=== PATIENT | female | born 1945 | race Asian ===

== ENCOUNTER 2023-07-12 11:57 | Outpatient (CLI) | payer MEDICARE, OTHER | END 2023-07-12 23:59 | disposition critical access hospital (66) | LOC: EMS 11:57 | DX: R53.1 Weakness (principal); R26.2 Difficulty in walking, not elsewhere classified; R39.89 Other symptoms and signs involving the genitourinary system; R23.8 Other skin changes | CPT/HCPCS: A0425; A0429 ==

== ENCOUNTER 2023-07-12 12:36 | Inpatient (IN) | payer MEDICARE, OTHER ==
--- NOTE | 2023-07-12 12:43 | ED Physician Documentation ---
History of Present Illness - Stated complaint Stated Complaint: FTT - History obtained from History obtained from: Patient, EMS - Additonal information Additional information: This is a 77-year-old woman with no known medical history albeit has not seen a doctor in this [place] who lives at home with her . She is brought in by ambulance because of multiple issues. Her main concern is neck pain. She states that 7 years ago she fell and injured her neck. She had no imaging done at the time nor since. Now her neck hurts a lot and it is quite deformed and she cannot lift her head at all. She also complains of bilateral leg pain weakness. She has noted to have A-fib on exam and has no history of this. PD PAST MEDICAL HISTORY - Allergies Allergies/Adverse Reactions: Allergies Allergy/AdvReac Type Severity Reaction Status Date / Time Penicillins Allergy Rash Verified 07/12/23 12:38 PD ED PE NORMAL - Vitals Vital signs reviewed: Yes - General General: Alert and oriented X 3, Other (She appears ill with slightly slow answers but is technically alert and oriented. She is disheveled, covered in stool.) - HEENT HEENT: Other (bad dentition) - Neck Neck: Other (Her neck is deformed with significant flexion and rotation to the left. She really cannot range it at all.) - Cardiac Cardiac: Other (Irregularly irregular without murmur) - Respiratory Respiratory: No respiratory distress, Clear bilaterally - Abdomen Abdomen: Non tender - Back Back: No CVA TTP, No spinal TTP - Derm Derm: Normal color, Warm and dry - Extremities Extremities: Other (Legs are covered in stool with multiple sores. Feet and extremities are cold.) - Neuro Neuro: Alert and oriented X 3 Eye Opening: To Voice Motor: Obeys Commands Verbal: Oriented GCS Score: 14 Results - Vitals Vitals: Vital Signs - 24 hr 07/12/23 07/12/23 07/12/23 12:38 12:42 14:37 Temperature 36.5 C 36.6 C 35.2 C L Heart Rate 100 100 78 Respiratory 16 16 15 Rate Blood Pressure 129/80 129/80 118/67 O2 Saturation 94 94 94 Oxygen O2 Source Room air - EKG (time done) 1310 EKG releavant findings:: EKG personally interpreted by author of this note. Relevant findings are: Rate: Rate (enter#) (70) Rhythm: Atrial fibrillation Mckinney: Normal QRS: Normal Ischemia: Non specific changes - Labs Labs: Laboratory Tests 07/12/23 07/12/23 07/12/23 12:48 13:05 13:05 WBC 13.5 H RBC 4.80 Hgb 14.9 Hct 48.1 H MCV 100.2 H MCH 31.0 MCHC 31.0 L RDW 15.9 H Plt Count 216 MPV 11.1 H Neut # (Auto) 13.0 H Lymph # (Auto) 0.1 L [place] # (Auto) 0.3 Eos # (Auto) 0.0 Baso # (Auto) 0.0 Absolute Nucleated RBC 0.02 Nucleated RBC % 0.1 VBG pH VBG pCO2 VBG pO2 VBG HCO3 VBG Total CO2 VBG O2 Saturation VBG Base Excess Sodium 146 H Potassium 4.0 Chloride 106 Carbon Dioxide 27 Anion Gap 13.0 BUN 71 H Creatinine 0.8 Estimated GFR (MDRD) 70 L Glucose 104 Lactic Acid Calcium 10.1 Phosphorus 2.2 L Magnesium 2.5 H Total Bilirubin 0.9 AST 27 ALT 39 Alkaline Phosphatase 162 H Troponin I High Sens Total Protein 6.8 Albumin 3.5 Globulin 3.3 Albumin/Globulin Ratio 1.1 Urine Color Urine Clarity Urine pH Ur Specific Orange Urine Protein Urine Glucose (UA) Urine Ketones Urine Occult Blood Urine Nitrite Urine Bilirubin Urine Urobilinogen Ur Leukocyte Esterase Ur Microscopic Review Urine Culture Comments Nasal Adenovirus (PCR) NOT DETECTED Nasal B. parapertussis DNA (PCR) NOT DETECTED Nasal Coronavir 229E PCR NOT DETECTED Nasal Coronavir HKU1 PCR NOT DETECTED Nasal Coronavir NL63 PCR NOT DETECTED Nasal Coronavir OC43 PCR NOT DETECTED Nasal Enterovir/Rhinovir PCR NOT DETECTED Nasal Influenza B PCR NOT DETECTED Nasal Influenza A PCR NOT DETECTED Nasal Parainfluen 1 PCR NOT DETECTED Nasal Parainfluen 2 PCR NOT DETECTED Nasal Parainfluen 3 PCR NOT DETECTED Nasal Parainfluen 4 PCR NOT DETECTED Nasal RSV (PCR) NOT DETECTED Nasal B.pertussis DNA PCR NOT DETECTED Nasal C.pneumoniae (PCR) NOT DETECTED Jourdan Human Metapneumo PCR NOT DETECTED Nasal M.pneumoniae (PCR) NOT DETECTED Nasal SARS-CoV-2 (PCR) NOT DETECTED Urine Opiates Screen Ur Buprenorphine Scrn Ur Oxycodone Screen Urine Methadone Screen Ur Barbiturates Screen Ur Tricyclics Screen Ur Phencyclidine Scrn Ur Amphetamine Screen U Methamphetamines Scrn U Benzodiazepines Scrn Urine Cocaine Screen U Cannabinoids Screen Ur Drug Screen Comment Ethyl Alcohol < 10.0 07/12/23 07/12/23 07/12/23 13:05 13:05 13:05 WBC RBC Hgb Hct MCV MCH MCHC RDW Plt Count MPV Neut # (Auto) Lymph # (Auto) [place] # (Auto) Eos # (Auto) Baso # (Auto) Absolute Nucleated RBC Nucleated RBC % VBG pH 7.421 H VBG pCO2 37.1 L VBG pO2 93.9 H VBG HCO3 23.6 VBG Total CO2 24.7 VBG O2 Saturation 97.4 H VBG Base Excess -0.4 Sodium Potassium Chloride Carbon Dioxide Anion Gap BUN Creatinine Estimated GFR (MDRD) Glucose Lactic Acid 2.3 H Calcium Phosphorus Magnesium Total Bilirubin AST ALT Alkaline Phosphatase Troponin I High Sens 6.3 Total Protein Albumin Globulin Albumin/Globulin Ratio Urine Color Urine Clarity Urine pH Ur Specific Orange Urine Protein Urine Glucose (UA) Urine Ketones Urine Occult Blood Urine Nitrite Urine Bilirubin Urine Urobilinogen Ur Leukocyte Esterase Ur Microscopic Review Urine Culture Comments Nasal Adenovirus (PCR) Nasal B. parapertussis DNA (PCR) Nasal Coronavir 229E PCR Nasal Coronavir HKU1 PCR Nasal Coronavir NL63 PCR Nasal Coronavir OC43 PCR Nasal Enterovir/Rhinovir PCR Nasal Influenza B PCR Nasal Influenza A PCR Nasal Parainfluen 1 PCR Nasal Parainfluen 2 PCR Nasal Parainfluen 3 PCR Nasal Parainfluen 4 PCR Nasal RSV (PCR) Nasal B.pertussis DNA PCR Nasal C.pneumoniae (PCR) Jourdan Human Metapneumo PCR Nasal M.pneumoniae (PCR) Nasal SARS-CoV-2 (PCR) Urine Opiates Screen Ur Buprenorphine Scrn Ur Oxycodone Screen Urine Methadone Screen Ur Barbiturates Screen Ur Tricyclics Screen Ur Phencyclidine Scrn Ur Amphetamine Screen U Methamphetamines Scrn U Benzodiazepines Scrn Urine Cocaine Screen U Cannabinoids Screen Ur Drug Screen Comment Ethyl Alcohol 07/12/23 13:37 WBC RBC Hgb Hct MCV MCH MCHC RDW Plt Count MPV Neut # (Auto) Lymph # (Auto) [place] # (Auto) Eos # (Auto) Baso # (Auto) Absolute Nucleated RBC Nucleated RBC % VBG pH VBG pCO2 VBG pO2 VBG HCO3 VBG Total CO2 VBG O2 Saturation VBG Base Excess Sodium Potassium Chloride Carbon Dioxide Anion Gap BUN Creatinine Estimated GFR (MDRD) Glucose Lactic Acid Calcium Phosphorus Magnesium Total Bilirubin AST ALT Alkaline Phosphatase Troponin I High Sens Total Protein Albumin Globulin Albumin/Globulin Ratio Urine Color YELLOW Urine Clarity CLEAR Urine pH 6.0 Ur Specific Orange 1.015 Urine Protein TRACE Urine Glucose (UA) NEGATIVE Urine Ketones NEGATIVE Urine Occult Blood NEGATIVE Urine Nitrite NEGATIVE Urine Bilirubin NEGATIVE Urine Urobilinogen 0.2 (NORMAL) Ur Leukocyte Esterase NEGATIVE Ur Microscopic Review NOT INDICATED Urine Culture Comments NOT INDICATED Nasal Adenovirus (PCR) Nasal B. parapertussis DNA (PCR) Nasal Coronavir 229E PCR Nasal Coronavir HKU1 PCR Nasal Coronavir NL63 PCR Nasal Coronavir OC43 PCR Nasal Enterovir/Rhinovir PCR Nasal Influenza B PCR Nasal Influenza A PCR Nasal Parainfluen 1 PCR Nasal Parainfluen 2 PCR Nasal Parainfluen 3 PCR Nasal Parainfluen 4 PCR Nasal RSV (PCR) Nasal B.pertussis DNA PCR Nasal C.pneumoniae (PCR) Jourdan Human Metapneumo PCR Nasal M.pneumoniae (PCR) Nasal SARS-CoV-2 (PCR) Urine Opiates Screen NEGATIVE Ur Buprenorphine Scrn NEGATIVE Ur Oxycodone Screen NEGATIVE Urine Methadone Screen NEGATIVE Ur Barbiturates Screen NEGATIVE Ur Tricyclics Screen NEGATIVE Ur Phencyclidine Scrn NEGATIVE Ur Amphetamine Screen NEGATIVE U Methamphetamines Scrn NEGATIVE U Benzodiazepines Scrn NEGATIVE Urine Cocaine Screen NEGATIVE U Cannabinoids Screen NEGATIVE Ur Drug Screen Comment CUTOFF CONC BELOW: Ethyl Alcohol - Rads (name of study) CT head showing small vessel ischemic change, limited by positioning. Relevant Findings:: Final report received, EMP independent interpretation of test CT A/P-Cardiomegaly, dextro scoliosis, patchy left basilar atelectasis Relevant Findings:: Prelim report reviewed, Final report received, EMP independent interpretation of test CT cervical spine grossly negative for limited by positioning. Relevant Findings:: Final report received, EMP independent interpretation of test PD Medical Decision Making - ED course ED course: arrived approximately 1:15 PM and I was able to obtain independent history from him. Patient really does not like doctors. Stated her decline started 7 years ago with a fall and neck injury. She had a progressive decline where she was able to ambulate less and less culminating in a fall off of the toilet about a year ago. At that time she had been using a walker but transition to a wheelchair. She was still able to transfer to a commode up until about 2 weeks ago when she could not even do that anymore. He noticed her legs about 3 months ago. States she always was wearing socks and finally took her socks off 3 months ago and noticed the infected wounds on her legs. They were treating it topically with something with tea tree oil and thought it was getting better. She was so averse to coming to the hospital that she threatened to kill her self when EMS was summoned he said but they were able to convince her to come to the hospital. 78-year-old woman with no known medical history but does not see doctors and is deathly afraid of doctors comes to the hospital today at the behest of her . She appears ill and fit septic criteria with tachycardia, hypothermia, leukocytosis and infection especially in her right leg. She was cultured up and given Ancef IV. Otherwise her workup demonstrates hyponatremia with moderate lactic acidosis and probably prerenal azotemia. She was extensively imaged with did not show any acute findings. She was amenable to coming into the hospital despite her reservations. Departure - Departure Disposition: 66 [facility] DC/Xfer Clinical Impression: Kyphoscoliosis deformity of spine, Severe protein-calorie malnutrition, Prerenal azotemia Sepsis Qualifiers: Sepsis type: sepsis due to unspecified organism Sepsis acute organ dysfunction status: without acute organ dysfunction Qualified Code(s): A41.9 - Sepsis, unspecified organism Cellulitis Qualifiers: Site of cellulitis: extremity Site of cellulitis of extremity: lower extremity Laterality: right Qualified Code(s): L03.115 - Cellulitis of right lower limb Afib Qualifiers: Atrial fibrillation type: unspecified Qualified Code(s): I48.91 - Unspecified atrial fibrillation Condition: Serious
[2023-07-12] MEDS ORDERED: iohexoL-300 100 ML VIAL ONE (12:48)
[2023-07-12 13:18] LABS: BASOPHILS % (AUTO) 0.1 %; HCT - HEMATOCRIT 48.1 % (37.0-47.0); HGB - HEMOGLOBIN 14.9 g/dL (12.0-16.0); LYMPHOCYTES # (AUTO) 0.1 10^3/uL (1.5-3.5); MEAN CORPUSCULAR VOLUME 100.2 fL (81.0-99.0); MEAN PLATELET VOLUME 11.1 fL (7.9-10.8); MONOCYTES # (AUTO) 0.3 10^3/uL (0.0-1.0); MONOCYTES % (AUTO) 1.9 %; NEUTROPHILS % (AUTO) 96.3 %; NRBC ABSOLUTE COUNT (AUTO) 0.02 x10^3/uL; NUCLEATED RED BLOOD CELLS AUTO 0.1 /100WBC; PLT - PLATELET COUNT 216 10^3/uL (130-450); RED CELL DISTRIBUTION WIDTH 15.9 % (12.0-15.0); WHITE BLOOD COUNT 13.5 x10^3/uL (4.8-10.8)
[2023-07-12 13:23] LABS: VBG PCO2 37.1 mmHg (41-51); VBG PH 7.421 (7.31-7.41); VBG PO2 93.9 mmHg (25-47)
[2023-07-12 13:24] LABS: VBG BASE EXCESS -0.4 mmol/L (-2 - +2); VBG HCO3 23.6 mmol/L (23-28); VBG TOTAL CO2 24.7 mmol/L (24-29)
[2023-07-12 13:26] LABS: VBG OXYGEN SATURATION 97.4 % (60-80)
[2023-07-12 13:34] LABS: ALBUMIN 3.5 g/dL (3.2-5.5); ALBUMIN/GLOBULIN RATIO 1.1 (1.0-2.2); ALKALINE PHOSPHATASE 162 IU/L (42-121); ALT ALANINE AMINOTRANSFERASE 39 IU/L (10-60); AST ASPARTATE AMINOTRANSFERASE 27 IU/L (10-42); BILIRUBIN,TOTAL 0.9 mg/dL (0.2-1.0); BUN - BLOOD UREA NITROGEN 71 mg/dL (6-20); CALCIUM 10.1 mg/dL (8.5-10.3); CARBON DIOXIDE - CO2 27 mmol/L (21-32); CHLORIDE 106 mmol/L (101-111); CREATININE 0.8 mg/dL (0.6-1.3); ETOH - ETHANOL < 10.0 mg/dL; GFR - MDRD 70 (>89); GLUCOSE 104 mg/dL (74-104); MAGNESIUM 2.5 mg/dL (1.7-2.3); PHOSPHORUS 2.2 mg/dL (2.5-5.0); SODIUM 146 mmol/L (135-145); TOTAL PROTEIN 6.8 g/dL (6.4-8.9)
[2023-07-12 13:52] LABS: BILIRUBIN,URINE NEGATIVE (NEGATIVE); CLARITY,URINE CLEAR (CLEAR); GLUCOSE, URINE (UA) NEGATIVE (NEGATIVE); KETONES,URINE (UA) NEGATIVE (NEGATIVE); LEUKOCYTE ESTERASE, URINE NEGATIVE (NEGATIVE); NITRITE,URINE NEGATIVE (NEGATIVE); OCCULT BLOOD,URINE NEGATIVE (NEGATIVE); PROTEIN,URINE TRACE mg/dL (NEGATIVE); UROBILINOGEN,URINE 0.2 (NORMAL) E.U./dL (NORMAL)
[2023-07-12 13:55] LABS: B. PARAPERTUSSIS- RESP PCR PAN NOT DETECTED; B. PERTUSSIS- RESP PCR PANEL NOT DETECTED; C. PNEUMONIAE- RESP PCR PANEL NOT DETECTED; CORONAVIRUS 229E-RESP PCR NOT DETECTED; CORONAVIRUS HKU1-RESP PCR NOT DETECTED; CORONAVIRUS NL63-RESP PCR NOT DETECTED; CORONAVIRUS OC43-RESP PCR NOT DETECTED; HUMAN METAPNEUMOVIRUS NOT DETECTED; INFLUENZA A- RESP PCR PANEL NOT DETECTED; INFLUENZA B - RESP PCR PANEL NOT DETECTED; M. PNEUMONIAE- RESP PCR PANEL NOT DETECTED; PARAINFLUENZA VIRUS 1 NOT DETECTED; PARAINFLUENZA VIRUS 2 NOT DETECTED; PARAINFLUENZA VIRUS 3 NOT DETECTED; PARAINFLUENZA VIRUS 4 NOT DETECTED; RHINOVIRUS/ENTEROVIRUS NOT DETECTED; RSV- RESP PCR PANEL NOT DETECTED; SARS-CoV-2 -RESP PCR PANEL NOT DETECTED
[2023-07-12 14:02] LABS: AMPHETAMINE SCREEN,URINE NEGATIVE (NEGATIVE); BARBITURATE SCREEN,UR NEGATIVE (NEGATIVE); BENZODIAZEPINES SCREEN, URINE NEGATIVE (NEGATIVE); BUPRENORPHINE SCREEN, URINE NEGATIVE (NEGATIVE); COCAINE SCREEN URINE NEGATIVE (NEGATIVE); METHADONE SCREEN, URINE NEGATIVE (NEGATIVE); METHAMPHETAMINES SCREEN, URINE NEGATIVE (NEGATIVE); OPIATE SCREEN, URINE NEGATIVE (NEGATIVE); OXYCODONE SCREEN, URINE NEGATIVE (NEGATIVE); THC CANNABINOID SCREEN, URINE NEGATIVE (NEGATIVE); TRICYCLIC ANTIDEPRESSANT,URINE NEGATIVE (NEGATIVE)
[2023-07-12] MEDS: DEXTROSE 5%-0.45% NACL 1,000 ML IV STA (14:19)
[2023-07-12] MEDS: ceFAZolin 1 GM VIAL IVP STA (14:34)
--- NOTE | 2023-07-12 15:21 | CT Report ---
PROCEDURE: Head WO INDICATIONS: FTT TECHNIQUE: Noncontrast 4.5 mm thick angled axial sections acquired from the foramen magnum to the vertex. For r adiation dose reduction, the following was used: automated exposure control, adjustment of mA and/or kV according to patient size. COMPARISON: None. FINDINGS: Image quality: Due to inability to position the patient in the standard position, the anatomy is quit e distorted. Series 10 is reasonable imaging in the coronal plane. No intra-axial imaging or true sag ittal imaging provided. CSF spaces: Basal cisterns are patent. No extra-axial fluid collections. Ventricles are normal in size and shape. Brain: No midline shift. No intracranial masses or hemorrhage. Galdamez-white matter interface is norm al. Age-related volume loss and at least moderate small vessel ischemic change. Skull and face: Calvarium and visualized facial bones are intact, without suspicious lesions. Sinuses: Visualized sinuses and mastoids are clear. IMPRESSION: 1. Allowing for the limits of this study, no gross abnormalities are identified. There is small vesse l ischemic change. No masses or hemorrhage or obvious acute infarcts are identified. Reviewed by: Huey Carr MD on 07/12/2023 3:19 PM PDT Approved by: Huey Carr MD on 07/12/2023 3:19 PM PDT Station ID: [id number]
--- NOTE | 2023-07-12 15:24 | CT Report ---
PROCEDURE: Cervical Spine WO INDICATIONS: neck injury TECHNIQUE: Noncontrast 3 mm thick sections acquired from the skull base to the T4 level. Sagittal and coronal r eformats were then constructed. For radiation dose reduction, the following was used: automated exp osure control, adjustment of mA and/or kV according to patient size. COMPARISON: None. FINDINGS: Image quality: There is marked flexion of the head and the normal imaging position could not be obtai josiah. Therefore, the bony structures are quite distorted.. Bones: Allowing for the limitations of this examination, no obvious fractures or dislocations are pre sent. Soft tissues: Prevertebral soft tissues are normal in thickness. No paravertebral hematomas. No ap ical pneumothoraces. IMPRESSION: Suboptimal study secondary to inability to obtain a normal position in the CT scanner. No obvious fra cture or dislocation is noted. Reviewed by: Huey Carr MD on 07/12/2023 3:23 PM PDT Approved by: Huey Carr MD on 07/12/2023 3:23 PM PDT Station ID: [id number]
[2023-07-12] MEDS: iohexoL-300 100 ML VIAL IVP ONE (15:27)
--- NOTE | 2023-07-12 15:30 | CT Report ---
PROCEDURE: Abdomen/Pelvis W INDICATIONS: IV only, FTT, weight loss CONTRAST: Omni 300 100ml TECHNIQUE: After the administration of intravenous contrast, a CT scan of the abdomen and pelvis was performed. Images were recorded and evaluated at appropriate window settings. Reformats: coronal and sagittal. F or radiation dose reduction, the following was used: automated exposure control, adjustment of mA and /or kV according to patient size. COMPARISON: CT chest from the same date FINDINGS: Image quality: Diagnostic. Lower chest: Patchy atelectasis in the extreme left lung base. Cardiomegaly.. Liver: No solid mass. Gallbladder and biliary tree: No radiopaque stones or wall thickening. No biliary dilation. Spleen: No splenomegaly. Pancreas: No pancreatic ductal dilation. Adrenals: No adrenal nodule. Kidneys and ureters: No hydronephrosis. No renal cystic lesion which requires follow up. No solid mas s. Multiple bilateral focal areas of renal cortical thinning. Stomach, bowel and peritoneum: No bowel distension. No pathologic free fluid. Lymph nodes: No central or retroperitoneal adenopathy. Vessels: No infrarenal aortic aneurysm. PELVIS Reproductive organs: Unremarkable. Bladder: No abnormal wall thickening, accounting for underdistention. Pelvic lymph nodes: No pelvic adenopathy by size criteria. Bones: Relatively impressive thoracolumbar dextrocurvature. No acute compression fractures. No lytic or blastic bony lesions are identified. Other: No significant ventral or inguinal hernia. IMPRESSION: 1. Thoracolumbar dextrocurvature. 2. Cardiomegaly. 3. Patchy left basilar atelectasis. 4. No acute process identified in the abdomen and pelvis. Reviewed by: Huey Carr MD on 07/12/2023 3:28 PM PDT Approved by: Huey Carr MD on 07/12/2023 3:28 PM PDT Station ID: [id number]
--- NOTE | 2023-07-12 15:35 | CT Report ---
PROCEDURE: Chest W INDICATIONS: FTT, weight loss CONTRAST: Omni 300 100ml TECHNIQUE: After the administration of intravenous contrast, a CT scan of the chest was performed. Images were recorded and evaluated at appropriate window settings. Reformats: axial MIP of the chest, coronal and sagittal. For radiation dose reduction, the following was used: automated exposure control, adjustme nt of mA and/or kV according to patient size. COMPARISON: CT abdomen and pelvis from the same date. FINDINGS: Image quality: Diagnostic. Chest wall and lower neck: No thyroid nodule which requires sonographic follow up. No axillary or sup raclavicular adenopathy by size. Lungs and pleura: No consolidation. No pleural effusions. No pneumothorax. No suspicious pulmonary n odules which require follow up. Mediastinum: Heart size is mildly enlarged.. No pericardial effusion. Borderline aneurysmal dilatatio n of the ascending aorta, measuring 4.0 cm.. No mediastinal adenopathy by size criteria. Question obs tructing distal esophageal lesion with resultant dilatation of the esophagus. The presence of a dista l esophageal lesion is not definite. Reference coronal image 74 of series 6. The esophagus is quite d ilated at the level of the AP window, measuring approximately 2.9 x 2.3 cm in luminal diameter on matilde ge 42/2. Bones: Severe dextrocurvature of the thoracic spine. Upper Abdomen: See separate report IMPRESSION: 1. There is narrowing of the distal esophagus, which may potentially represent the presence of a yuliet gn stricture or mass which results in significant dilatation of the more proximal esophagus. 2. Severe dextrocurvature of the thoracic spine. 3. Patchy left basilar atelectasis. 4. Cardiomegaly. Reviewed by: Huey Carr MD on 07/12/2023 3:33 PM PDT Approved by: Huey Carr MD on 07/12/2023 3:33 PM PDT Station ID: [id number]
[2023-07-12] MEDS ORDERED: ONDANSETRON 4 MG/2 ML VIAL IVP PRN (16:16)
[2023-07-12] MEDS ORDERED: oxyCODONE 5 MG TABLET PO PRN (16:16)
[2023-07-12] MEDS ORDERED: ONDANSETRON ODT 4 MG TABLET TL PRN (16:16)
--- NOTE | 2023-07-12 17:51 | HISTORY & PHYSICAL EXAMINATION ---
Chief Complaint - Chief Complaint Chief Complaint: Sepsis, Cellulitis History of Present Illness - Admitted From Admitted From:: Home - History Obtained From Records Reviewed: [facility] History obtained from: Patient Exam Limitations: None - History of Present Illness HPI Comment/Other: Mrs. Rosado is a 77-year-old woman who presented to the ED today because her was concerned about a rash on her legs. Patient was very resistant to come to the hospital due to fear of doctors and threatened to killherself when EMS was summoned but she was able to be convinced to come to the hospital. She presented in the ED today with sepsis, cellulitis of bilateral lower legs (worse on the R), and severe thoracic kyphosis. Mrs. Rosado has not seen a medical provider in over 35 years since the of her only child due to her fear of doctors. She is here today with her who helps contribute to her medical history. She reports that her decline first started with changes to her spine 50 years ago that worsened 7 years ago with a fall and neck injury that was never evaluated or treated. She states that she was last able to lift her head 1 year ago and she was last able to walk 6 months ago with a walker but since she has been bound to a wheelchair. Her reports that she has had a progressive decline in mobility. She was still able to transfer to a commode up until about 2 weeks ago when she could not even do that anymore. He reports hasn't bathed in years and has been using wipes. Barriers to proper bathing include that she is bound to wheelchair for movement and remains on the upper level of her home where there is not a bathtub or shower. Her states that she wore the same pair of socks for almost a year and when she finally removed them 3 months ago she noticed that the legs appeared infected at that time. She states that urine would get on her legs and make the infection worse. Her applied urea cream to the lower legs about a week ago and felt that it improved some but she only allowed him to do this once. Mrs. Rosado does not take and medications but reports that she takes a daily vitamin D, vitamin C, and two supplements she heard about on the radio called "relief factor" and "V- Activ". Her diet is very minimal and she only eats a few "nibbles" of things t hroughout the day. She occasionally reports she will finish a TV dinner which is a large meal for her. History - Past Medical History DOBIE MAN: reports: Other (One vaginal 35 years ago) : reports: Renal insuffiency (Patient was told 45 years ago that her kidney function was decreased) Musculoskeletal: reports: Chronic back pain MRSA Hx?: No - Past Surgical History /DOBIE MAN: reports: Other (Lumpectomy 40 years ago that was benign) - Family & Social History Family History Comment/Other: Mother at 99 due to old age, Father at 35 due to an accident. Patient has a younger sister that at 59 due to cancer (patient unable to recall what type) and one living sister and brother that are healthy. Patients has one son with no health issues Living arrangement: At home Living Situation: With spouse/s.o. Social History Notes: Patient does not smoke or drink. She lives at home with her of 40+ years who she met in [facility] when he was stationed there with the [employer]. She has never worked. Patient mostly remains at home on the upper level of her house and has struggled taking care of herself. She hasn't bathed in many years and previously wore the same pair of socks for years. Patient reports that she does not eat 3 meals a day but takes "nibbles" of things th roughout the day. Her reports that she rarely eats a whole TV dinner and exhibits OCD tendencies like washing her hands multiple times in a row and doing repetitive actions. She is bound to a wheelchair for movement and struggles to transition to her bed so she often sleeps sitting in her wheelchair. - Substance History Use: Uses substance without health or social issues: NONE Use Issues: Anxiety Disorder ( reports symptoms of OCD at home that strongly impact her functioning. Patient has never recieved a formal diagnosis.) Abuse: Recurrent use of substance despite neg consequences: NONE Dependence: Experiences withdrawal or developed tolerances: NONE - POLST Patient has POLST: No POLST Status: Full Code Meds/Allgy - Home Medications Home Medications: Ambulatory Orders Medication Instructions Recorded Confirmed No Known Home Medications 07/13/23 07/13/23 - Allergies Allergies/Adverse Reactions: Allergies Allergy/AdvReac Type Severity Reaction Status Date / Time Penicillins Allergy Rash Verified 04/10/24 12:38 Review of Systems - Constitutional Constitutional: reports: Fever, Malaise, Weakness, Poor appetite. denies: Fatigue, Night sweats - Eyes Eyes: reports: Blurred vision (blurred vision in the R eye that started 6 months ago). denies: Pain, Vision loss - Ears, Nose & Throat Ears, Nose & Throat: reports: Dental decay. denies: Ear pain, Hearing loss, Tinnitus, Nasal pain, Nasal discharge, Sore throat, Hoarseness - Cardiovascular Cariovascular: reports: Irregular heart rate, Palpitations (Patient admits to 3 episodes of feeling like her heart was racing that occurred 1 year ago). denies: Chest pain, Lightheadedness, Syncope - Respiratory Respiratory: denies: Cough, Wheezing, Hemoptysis, Orthopnea, Pleuritic pain - Gastrointestinal Gastrointestinal: reports: Poor appetite. denies: Abdominal pain, Constipation, Diarrhea, Change in bowel habits, Rectal bleeding, Bloody stools, Nausea, Vomiting - Genitourinary Genitourinary: reports: Incontinence. denies: Dysuria, Frequency, Urgency - Musculoskeletal Musculoskeletal: reports: Back pain, Stiffness, Limited range of motion (Limited ROM of the neck). denies: Joint pain - Integumentary Integumentary: reports: Nail changes (Thickening of toenails) - Neurological Neurological: reports: Numbness (numbness in bilateral feet). denies: Headache, Dizziness - Psychiatric Psychiatric: reports: Anxiety. denies: Depression - Endocrine Endocrine: denies: Polyuria - Hematologic/Lymphatic Hematologic/Lymphatic: reports: Bruising (Some bruising on arms) Prior Level of Functionality: patient has slept in a wheelchair for the past few years, does not bathe and is room bound and needs help to stand and bathe. She is able to feed herself. Exam - Vital Signs Vital Signs: Vital Signs x48h Temp Pulse Pulse Resp BP BP Pulse Ox 07/12/23 17:05 36.1 C L 65 16 93/61 90 L 07/12/23 16:00 36.0 C L 76 16 110/60 94 07/12/23 14:37 35.2 C L 78 15 118/67 94 07/12/23 12:42 36.6 C 100 16 129/80 94 07/12/23 12:38 36.5 C 100 16 129/80 94 - Physical Exam General Appearance: positive: Alert, Anxious, Other (Patient appeared comfortable in the hospital bed with her neck stuck in left lateral flexion, her chin touching her chest, and her bilateral legs in a fixed externally position . She has significant kyphosis/ scoliosis deformity.) Eyes Bilateral: positive: PERRL, Conjunctivae nml ENT: positive: Other (significant dental decay noted with several missing teeth) Neck: positive: Stiff neck (significant deformity of the neck which is stuck in left lateral flexion with chin touching the chest) Respiratory: positive: Breath sounds nml. negative: No respiratory distress, Wheezes Cardiovascular: positive: No murmur, Irregularly irregular, Friction rub Peripheral Pulses: positive: 2+ Abdomen: positive: Non-tender, Nml bowel sounds. negative: Guarding, Rebound Skin: positive: Skin rash (Edema, erythema, warmth, with weeping sores and significant crusting on the bilateral lower legs, worse on the right. Feet and extremities cool to touch. there appears to be an embedded string or thread causing circumfrential constriction around the right ankle and right 3-4th toes.), Other (There is a small breakdown of skin over her coccyx.) Extremities: positive: Pedal edema, Other (thickening and discoloration of bilateral 1-5th toenails consistent with onychomycosis) Neurologic/Psychiatric: positive: Oriented x3, CN's nml (2-12). negative: Sensory loss, Slurred/abnml speech Sepsis Event Note (H) - Evaluation Current Stage of Sepsis: Sepsis Possible source of Sepsis: positive: Skin/soft tissue Confirmed Source and Organism (if known) of Sepsis: confirmed source: cellulitis of legs. Culture pending. Unknown organism at this time. Sepsis Associated Organ Dysfunction: Skin Conclusion/Plan - Problem List (1) Sepsis Conclusion/Plan: Mrs. Rosado is a 78 year old female who presented to the ED today with her due to chronic neck pain and rash of her bilateral lower legs who is afraid of doctors and hasn't received healthcare in over 35 years. In the ED her EKG showed Atrial fibrillation. Labs demonstrated hypernatremia (sodium was 146) with moderate lactic acidosis (lactic acid was 2.3) and pre-renal azotemia (BUN was 71, Createnine was 0.8, GFR was 70). Extensive imaging did not show any acute findings. In the ED patient was diagnosed with cellulitis of bilateral lower legs and fit septic criteria with tachycardia, hypothermia, leukocytosis and infection especially in her right leg. Blood cultures were gathered and pending. She was given 1g IV Cefazolin; ED providers considered starting patient of vanc but risk of MRSA is relatively low since patient has not left her home in many years and hasn't been in any healthcare facilities for years prior to today. Patient was admitted because of sepsis requiring IV antibiotics at this time. She was s tarted on Enoxaparin for DVT prophylaxis. Plan to continue IV fluids and IV Cefazolin 1g every 6 hours until blood cultures return, then we will consider switching to a different antibiotic as indicated or continue the Cefazolin. We will plan to re-check labs again tomorrow (07/12) and the next day (07/13). Qualifiers: Sepsis type: sepsis due to unspecified organism Sepsis acute organ dysfunction status: without acute organ dysfunction Qualified Code(s): A41.9 - Sepsis, unspecified organism (2) Cellulitis Conclusion/Plan: Mrs. Rosado is a 78 year old female who presented to the ED today with cellulitis of bilateral lower extremities, worse on the R side after wearing the same pair of socks for over a year and never removing them during that time. She first noticed skin changes to her lower legs upon removal of her socks 3 months ago. She states skin has appeared infected for three months. Getting urine on the legs exacerbated the skin irritation. She noticed slight improvement with soaking the legs in urea cream once about a week ago but hasn't tried anything since. On exam there was cellulitis on bilateral lower extremities worse on the right. There is also an embedded string tourniquet around the right ankle and right 3rd and 4th toes with purulent drainage. In the ED she was started on IV Cefazolin for sepsis that is likley from this skin infection. We will plan to continue the IV cefazolin and consult surgery for removal of the embedded string tourniquets in the skin. She should also be given a shower today and ensure the legs are adequately cleaned. I anticipate that she may need wound care following the removal of the strings during the duration of her stay. Qualifiers: Site of cellulitis: extremity Site of cellulitis of extremity: lower extremity Laterality: right Qualified Code(s): L03.115 - Cellulitis of right lower limb (3) Afib Conclusion/Plan: Patient presents to the ED today with A-fib seen on EKG. Patient is not in distress and denies chest pain, palpitations, or difficulty breathing. She admitted to 3 episodes of palpitations that occurred last year where she felt like her heart was racing that resolved spontaneously. It is unknown how long she has been in A-fib at this time but she her heart rate is regular at this time. Patient seems hesitant to medications. Plan to have a discussion with her about starting anticoagulation treatment for A-fib and obtain and ECHO prior to assessing if cardioversion would be appropriate. Qualifiers: Atrial fibrillation type: unspecified Qualified Code(s): I48.91 - Unspecified atrial fibrillation (4) Kyphoscoliosis deformity of spine Conclusion/Plan: Mrs. Rosado presented to the ED today complaining primarily of neck pain with her neck fixed in left lateral flexion with her chin touching her chest. She is unable to move her neck from this position and was last able to life her neck 1 year ago. She is currently wheelchair bound and often sleeps in her wheelchair. Her reported a progressive decline in mobility for the past couple years. Patient first noticed changes to her spine 50 years ago and states that her neck pain and deformity worsened 7 years ago with a fall and neck injury that was never evaluated or treated. Patient admits to neck and back pain but has not taken any pain medication. She does take a supplement called relief factor for pain which helps minimally. In the ED she was extensively imaged which revealed severe dextrocurvature of the thoracic spine and thoracolumbar d extrocurvature. Spinal deformity has likely contributed significantly to her inability to move and perform ADLs. Differential diagnosis for the cause or contributing factors of her severe kyphoscoliosis include prolonged fixed poor posture vs. osteoporosis vs. EDS vs. other skeletal dysplasia. Patient was given Tylenol for pain. She should see and orthopedist in the outpatient setting for further evaluation and treatment of this deformity. (5) Prerenal azotemia Conclusion/Plan: Mrs. Rosado was seen to have pre-renal azotemia on labs in the ED earlier today (BUN was 71, Createnine was 0.8, GFR was 70). She was started on IV fluids in the ED. She admits to being told she had decreased kidney function by a doctor 40 years ago. Upon admission we have continued her IV D5 and fluids. We will continue to monitor labs. differential diagnosis is most suspicious for dehydration as suggested by her hypernatremia. (6) Severe protein-calorie malnutrition Conclusion/Plan: Mrs. Rosado appears malnourished and to have severe protein-calorie malnutrition upon arrival to the ED earlier today. She reports that her diet is very minimal and she just takes "nibbles" of things throughout the day. She denies feeling hungry. She states that she occasionally eats a TV dinner which is a large meal. At home she occasionally eats wheat germ, rice, oats, peas, broccoli, beef, and yogurt. She denies any food allergies. Will plan to monitor her nutrition and have her speak with a technical services rep during her stay. (7) Esophageal stricture Conclusion/Plan: Chest CT in the ED showed narrowing of the distal esophagus which "may potentially represent the presence of a benign stricture or mass resulting in significant dilation of the more proximal esophagus" per radiology report. Patient denies any dysphagia or reflux but does not eat large meals. We consulted a surgeon who recommended that patient obtain and EGD. Will discuss this with the patient as she is very hesitant about any medical procedures. - Lab Results Lab results reviewed: Yes Fish Bones: 07/12/23 13:05 07/12/23 13:05 - Diagnostic Imaging Results Diagnostic Imaging Results: positive: Final report reviewed Diagnostic Imaging Results Comments: Chest CT showed: narrowing of the distal esophagus, which may potentially represent the presence of a benign stricture or mass which results in significant dilation of the more proximal esophagus and severe dextrocurvature of the thoracic spine. Abd/ Pelvic CT showed: thoracolumbar dextrocurvature, cardiomegally, patchy left basilar atelectasis and no acute process identified in abdomen or pelvis C-spine CT was sub-optimal study secondary to inability to obtain an normal position in the CT scanner. No obvious fracture or dislocation. Head CT showed: no gross abnormalities. There is small vessel ischemic change. No masses or hemorrhage or obvious acute infarcts identified. - EKG Results EKG Interpreted Independently: No EKG Comparison: No prior EKG
[2023-07-12] MEDS: SODIUM CHLORIDE FLUSH 0.9% 10 ML SYRINGE IVP SCH (18:32)
[2023-07-12] MEDS: ceFAZolin 1 GM in SODIUM CHLORIDE 0.9% MINIBAG 100 ML IV SCH (20:08)
[2023-07-12] MEDS: SODIUM CHLORIDE FLUSH 0.9% 10 ML SYRINGE IVP PRN (20:08)
[2023-07-13] MEDS: ACETAMINOPHEN 325 MG TABLET PO PRN (00:28)
[2023-07-13] MEDS: SODIUM CHLORIDE 0.9% 500 ML IV ONE (05:02)
[2023-07-13] MEDS: MULTIVITAMIN W/MINERALS TABLET PO SCH (09:24)
[2023-07-13] MEDS: CHOLECALCIFEROL 25 MCG TABLET PO SCH (09:24)
--- NOTE | 2023-07-13 10:05 | PHARMACY PROGRESS NOTE ---
- Best Possible Medication History Admit Date and Time: 07/12/23 1616 Processed by: Pharmacy Medications reviewed in ED?: No Medication History completed: Yes Patient Interview: Pt unable to participate Secondary Source(s): Spouse/Significant other As the person ultimately responsible for medication therapy, providers are able to order a medication from an existing home medication list in [facility] via the "Reconcile Routine" prior to Confirmation of that medication by therapeutic support staff. Such practice is discouraged except when the physician, in their clinical judgment, deems that a medical need exists for a medication without regard to previous use.
--- NOTE | 2023-07-13 11:00 | PROVIDER PROGRESS NOTE ---
Assessment/Plan - Problem List (1) Sepsis Qualifiers: Sepsis type: sepsis due to unspecified organism Sepsis acute organ dysfunction status: without acute organ dysfunction Qualified Code(s): A41.9 - Sepsis, unspecified organism Assessment/Plan: Conclusion/Plan: Mrs. Rosado is a 78 year old female who presented to the ED yesterday with her due to chronic neck pain and rash of her bilateral lower legs. She has a fear of doctors and has not received healthcare in 35+ years. In the ED her EKG showed Atrial fibrillation. Labs demonstrated hypernatremia (sodium was 146) with moderate lactic acidosis (lactic acid was 2.3) and pre-renal azotemia (BUN was 71, Createnine was 0.8, GFR was 70). Extensive imaging did not show any acute findings but an esophageal stricture was seen. She was diagnosed with Afib, protein-calorie malnutrition, cellulitis of bilateral lower legs and she fit septic criteria warranting her admission. Blood cultures were gathered and patient was started on 1g IV Cefazolin which was continued upon admission every 6 hours as well as IV fluids, enoxaparin for DVT prophylaxis, and tylenol for back pain. Today: blood cultures are still pending. She has continued 1g IV cefazolin and IV fluids. Patient reports that she is feeling OK but is experiencing some discomfort in her right foot, likely associated with cellulitis and string tourniquets. Plan to continue IV fluids and IV Cefazolin 1g every 6 hours until blood cultures return, then we will consider switching to a different antibiotic as indicated or continue the Cefazolin. We will plan to re-check labs again tomorrow (07/13). (2) Cellulitis Conclusion/Plan: Mrs. Rosado reports that she is experiencing some discomfort in her right 5th toe today. Upon inspection and palpation of the toe, her pain is more located where there is a embedded string tourniquet around the right 3rd and 4th toes. She was able to receive a shower today which helped remove some of the scale on her l ower legs. She will meet with surgery today to discuss removal of embedded string tourniquets in the skin. Patient expressed worry about the local anesthetic needed for the procedure, stating that she does not want any vaccines. We reassured her local anesthetic is not a vaccine. We will wait to hear from the surgeon for their recommendation. Plan to continue IV Cefazolin 1g every 6 hours for cellulitis and follow up with surgeon to see if procedure is indicated for removal of embedded string tourniquets in the skin. (3) Afib Conclusion/Plan: A-fib seen on EKG in the ED yesterday. Patient denies symptoms of chest pain, SOB or palpitations today. Patient is hesitant to medications due to distrust in the healthcare system. We will plan to have a discussion with Mrs. Rosado and her about starting anticoagulation treatment for her A-fib. We will also plan to get an ECHO to determine if cardioversion in the future would be appropriate. (4) Kyphoscoliosis deformity of spine Conclusion/Plan: Mrs. Rosado presented to the ED yesterday complaining primarily of neck pain with her neck fixed in left lateral flexion with her chin touching her chest. Imaging showed severe dextrocurvature of the thoracic spine and thoracolumbar dextrocurvature. Today she states that her back pain is stable with tylenol and she is laying comfortably in the hospital bed. The cause of her deformity is unknown at this time. Upon discharge she should follow up with an orthopedist for further evaluation and treatment, possibly including a DEXA scan to assess for osteoporosis. (5) Prerenal azotemia Conclusion/Plan: Mrs. Rosado was seen to have pre-renal Azotemia on labs in the ED yesterday (BUN was 71, Createnine was 0.8, GFR was 70). She was started on IV fluids in the ED and they were continued upon admission. Today her BUN was 61, GFR was 61 and Createnine was 0.9. Labs were not congruent with what we would expect given adequate IV re-hydration and may be due to lab inconsistency. We will continue to monitor kidney function and plan to re-check labs again tomorrow. (6) Severe protein-calorie malnutrition Conclusion/Plan: Mrs. Rosado appeared malnourished at her arrival to the ED yesterday. She has been able to eat some since her admission and denies feeling hungry. Plan to continue to monitor her nutrition and have her speak with a stencil machine operator. (7) Esophageal stricture Conclusion/Plan: Chest CT in the ED showed narrowing of the distal esophagus which "may potentially represent the presence of a benign stricture or mass resulting in significant dilation of the more proximal esophagus" per radiology report. Patient denies any dysphagia or reflux but does not eat large meals. We consulted a surgeon who recommended that patient obtain and EGD. Will plan to discuss this with the patient as she is very hesitant about any medical procedures today or tomorrow and schedule the EGD if she agrees. - Current Meds Current Meds: Current Medications Generic Name Dose Route Start Last Admin Trade Name Freq PRN Reason Stop Dose Admin Acetaminophen 650 mg 07/12/23 16:16 07/13/23 00:28 Acetaminophen 325 Mg Tablet PO 650 mg Q4HR PRN Administration Pain 1 to 4, or Fever Cholecalciferol 50 mcg 07/13/23 09:00 07/13/23 09:24 Cholecalciferol 25 Mcg Tablet PO 50 mcg DAILY SHERRIE Administration Cefazolin Sodium 1 gm/ Sodium 100 mls @ 200 mls/hr 07/12/23 20:00 07/13/23 04:55 Chloride IV Infused Q8H SHERRIE Infusion Sodium Chloride 10 ml 07/12/23 16:16 07/12/23 20:08 Sodium Chloride Flush 0.9% 10 Ml Syringe IVP 10 ml PRN PRN Administration NEEDED PER PROVIDER ORDERS Sodium Chloride 10 ml 07/12/23 17:00 07/13/23 00:41 Sodium Chloride Flush 0.9% 10 Ml Syringe IVP 10 ml 0100,0900,1700 SHERRIE Administration - Lab Result Fish Bone Diagrams: 07/13/23 08:47 07/13/23 08:47 - Diagnostic Imaging Results Diagnostic Imaging Results: Final report reviewed - Additional Planning Consult/Specialty: Surgery Plan Discussed with:: Patient, Spouse Time Spent: 31-60 minutes Objective Vital Signs: Vital Signs - 24 hr 07/12/23 07/12/23 07/12/23 12:38 12:42 14:37 Temperature 36.5 C 36.6 C 35.2 C L Heart Rate 100 100 78 Heart Rate [ Brachial] Respiratory 16 16 15 Rate Blood Pressure 129/80 129/80 118/67 Blood Pressure [Right Brachial artery] O2 Saturation 94 94 94 If not protocol : Oxygen Flow, liters/minute 07/12/23 07/12/23 07/12/23 16:00 17:05 23:56 Temperature 36.0 C L 36.1 C L 36.1 C L Heart Rate 76 Heart Rate [ 65 87 Brachial] Respiratory 16 16 16 Rate Blood Pressure 110/60 Blood Pressure 93/61 90/60 [Right Brachial artery] O2 Saturation 94 90 L 93 If not protocol : Oxygen Flow, liters/minute 07/13/23 07/13/23 07/13/23 04:29 05:42 06:03 Temperature 36.3 C L Heart Rate Heart Rate [ 72 68 Brachial] Respiratory 17 Rate Blood Pressure Blood Pressure 80/52 L 90/50 L 80/50 L [Right Brachial artery] O2 Saturation 95 If not protocol : Oxygen Flow, liters/minute 07/13/23 07/13/23 06:57 08:00 Temperature 36.3 C L Heart Rate Heart Rate [ 80 Brachial] Respiratory 16 Rate Blood Pressure Blood Pressure 97/69 [Right Brachial artery] O2 Saturation 97 97 If not protocol 0.5 1 : Oxygen Flow, liters/minute Oxygen O2 Source Nasal cannula I&O (Last 24 Hrs): Intake and Output Totals x24h 07/11/23 07/12/23 07/13/23 23:59 23:59 23:59 Intake Total 1490 1200 Output Total 25 250 Balance 1465 950 - Results Results: Laboratory Results WBC 13.5 x10^3/uL (4.8-10.8) H 07/12/23 13:05 RBC 4.80 10^6/uL (4.20-5.40) 07/12/23 13:05 Hgb 14.9 g/dL (12.0-16.0) 07/12/23 13:05 Hct 48.1 % (37.0-47.0) H 07/12/23 13:05 MCV 100.2 fL (81.0-99.0) H 07/12/23 13:05 MCH 31.0 pg (27.0-31.0) 07/12/23 13:05 MCHC 31.0 g/dL (32.0-36.0) L 07/12/23 13:05 RDW 15.9 % (12.0-15.0) H 07/12/23 13:05 Plt Count 216 10^3/uL (130-450) 07/12/23 13:05 MPV 11.1 fL (7.9-10.8) H 07/12/23 13:05 Neut # (Auto) 13.0 10^3/uL (1.5-6.6) H 07/12/23 13:05 Lymph # (Auto) 0.1 10^3/uL (1.5-3.5) L 07/12/23 13:05 [place] # (Auto) 0.3 10^3/uL (0.0-1.0) 07/12/23 13:05 Eos # (Auto) 0.0 10^3/uL (0.0-0.7) 07/12/23 13:05 Baso # (Auto) 0.0 10^3/uL (0.0-0.1) 07/12/23 13:05 Absolute Nucleated RBC 0.02 x10^3/uL 07/12/23 13:05 Nucleated RBC % 0.1 /100WBC 07/12/23 13:05 VBG pH 7.421 (7.31-7.41) H 07/12/23 13:05 VBG pCO2 37.1 mmHg (41-51) L 07/12/23 13:05 VBG pO2 93.9 mmHg (25-47) H 07/12/23 13:05 VBG HCO3 23.6 mmol/L (23-28) 07/12/23 13:05 VBG Total CO2 24.7 mmol/L (24-29) 07/12/23 13:05 VBG O2 Saturation 97.4 % (60-80) H 07/12/23 13:05 VBG Base Excess -0.4 mmol/L (-2 - +2) 07/12/23 13:05 Sodium 146 mmol/L (135-145) H 07/12/23 13:05 Potassium 4.0 mmol/L (3.5-4.5) 07/12/23 13:05 Chloride 106 mmol/L (101-111) 07/12/23 13:05 Carbon Dioxide 27 mmol/L (21-32) 07/12/23 13:05 Anion Gap 13.0 (6-13) 07/12/23 13:05 BUN 71 mg/dL (6-20) H 07/12/23 13:05 Creatinine 0.8 mg/dL (0.6-1.3) 07/12/23 13:05 Estimated GFR (MDRD) 70 (>89) L 07/12/23 13:05 Glucose 104 mg/dL (74-104) 07/12/23 13:05 Lactic Acid 2.3 mmol/L (0.5-2.2) H 07/12/23 13:05 Calcium 10.1 mg/dL (8.5-10.3) 07/12/23 13:05 Phosphorus 2.2 mg/dL (2.5-5.0) L 07/12/23 13:05 Magnesium 2.5 mg/dL (1.7-2.3) H 07/12/23 13:05 Total Bilirubin 0.9 mg/dL (0.2-1.0) 07/12/23 13:05 AST 27 IU/L (10-42) 07/12/23 13:05 ALT 39 IU/L (10-60) 07/12/23 13:05 Alkaline Phosphatase 162 IU/L (42-121) H 07/12/23 13:05 Troponin I High Sens 6.3 ng/L (2.3-14.8) 07/12/23 13:05 Total Protein 6.8 g/dL (6.4-8.9) 07/12/23 13:05 Albumin 3.5 g/dL (3.2-5.5) 07/12/23 13:05 Globulin 3.3 g/dL (2.1-4.2) 07/12/23 13:05 Albumin/Globulin Ratio 1.1 (1.0-2.2) 07/12/23 13:05 Vitamin B12 1475 pg/mL (180-914) H 07/13/23 08:47 Folate 5.9 ng/mL (5.90 - >24.8) 07/13/23 08:47 Urine Color YELLOW 07/12/23 13:37 Urine Clarity CLEAR (CLEAR) 07/12/23 13:37 Urine pH 6.0 PH (5.0-7.5) 07/12/23 13:37 Ur Specific [place] 1.015 (1.002-1.030) 07/12/23 13:37 Urine Protein TRACE mg/dL (NEGATIVE) 07/12/23 13:37 Urine Glucose (UA) NEGATIVE mg/dL (NEGATIVE) 07/12/23 13:37 Urine Ketones NEGATIVE mg/dL (NEGATIVE) 07/12/23 13:37 Urine Occult Blood NEGATIVE (NEGATIVE) 07/12/23 13:37 Urine Nitrite NEGATIVE (NEGATIVE) 07/12/23 13:37 Urine Bilirubin NEGATIVE (NEGATIVE) 07/12/23 13:37 Urine Urobilinogen 0.2 (NORMAL) E.U./dL (NORMAL) 07/12/23 13:37 Ur Leukocyte Esterase NEGATIVE (NEGATIVE) 07/12/23 13:37 Ur Microscopic Review NOT INDICATED 07/12/23 13:37 Urine Culture Comments NOT INDICATED 07/12/23 13:37 Nasal Adenovirus (PCR) NOT DETECTED 07/12/23 12:48 Nasal B. parapertussis DNA (PCR) NOT DETECTED 07/12/23 12:48 Nasal Coronavir 229E PCR NOT DETECTED 07/12/23 12:48 Nasal Coronavir HKU1 PCR NOT DETECTED 07/12/23 12:48 Nasal Coronavir NL63 PCR NOT DETECTED 07/12/23 12:48 Nasal Coronavir OC43 PCR NOT DETECTED 07/12/23 12:48 Nasal Enterovir/Rhinovir PCR NOT DETECTED 07/12/23 12:48 Nasal Influenza B PCR NOT DETECTED 07/12/23 12:48 Nasal Influenza A PCR NOT DETECTED 07/12/23 12:48 Nasal Parainfluen 1 PCR NOT DETECTED 07/12/23 12:48 Nasal Parainfluen 2 PCR NOT DETECTED 07/12/23 12:48 Nasal Parainfluen 3 PCR NOT DETECTED 07/12/23 12:48 Nasal Parainfluen 4 PCR NOT DETECTED 07/12/23 12:48 Nasal RSV (PCR) NOT DETECTED 07/12/23 12:48 Nasal B.pertussis DNA PCR NOT DETECTED 07/12/23 12:48 Nasal C.pneumoniae (PCR) NOT DETECTED 07/12/23 12:48 Jourdan Human Metapneumo PCR NOT DETECTED 07/12/23 12:48 Nasal M.pneumoniae (PCR) NOT DETECTED 07/12/23 12:48 Nasal SARS-CoV-2 (PCR) NOT DETECTED 07/12/23 12:48 Urine Opiates Screen NEGATIVE (NEGATIVE) 07/12/23 13:37 Ur Buprenorphine Scrn NEGATIVE (NEGATIVE) 07/12/23 13:37 Ur Oxycodone Screen NEGATIVE (NEGATIVE) 07/12/23 13:37 Urine Methadone Screen NEGATIVE (NEGATIVE) 07/12/23 13:37 Ur Barbiturates Screen NEGATIVE (NEGATIVE) 07/12/23 13:37 Ur Tricyclics Screen NEGATIVE (NEGATIVE) 07/12/23 13:37 Ur Phencyclidine Scrn NEGATIVE (NEGATIVE) 07/12/23 13:37 Ur Amphetamine Screen NEGATIVE (NEGATIVE) 07/12/23 13:37 U Methamphetamines Scrn NEGATIVE (NEGATIVE) 07/12/23 13:37 U Benzodiazepines Scrn NEGATIVE (NEGATIVE) 07/12/23 13:37 Urine Cocaine Screen NEGATIVE (NEGATIVE) 07/12/23 13:37 U Cannabinoids Screen NEGATIVE (NEGATIVE) 07/12/23 13:37 Ur Drug Screen Comment CUTOFF CONC BELOW: 07/12/23 13:37 Ethyl Alcohol < 10.0 mg/dL 07/12/23 13:05 Sepsis Event Note (H) - Evaluation Current Stage of Sepsis: Sepsis Possible source of Sepsis: positive: Skin/soft tissue ABX Reporting Has patient been on IV antibiotics over the past 48 hours?: Yes
[2023-07-13] MEDS: ENOXAPARIN 40 MG/0.4 ML SYRINGE SUBQ SCH (13:30)
[2023-07-13 14:03] LABS: BASOPHILS % (AUTO) 0.1 %; EOSINOPHILS % (AUTO) 0.1 %; HCT - HEMATOCRIT 42.3 % (37.0-47.0); HGB - HEMOGLOBIN 13.2 g/dL (12.0-16.0); LYMPHOCYTES # (AUTO) 0.2 10^3/uL (1.5-3.5); LYMPHOCYTES % (AUTO) 1.5 %; MEAN CORPUSCULAR HEMOGLOBIN 31.4 pg (27.0-31.0); MEAN CORPUSCULAR HGB CONC 31.2 g/dL (32.0-36.0); MEAN CORPUSCULAR VOLUME 100.5 fL (81.0-99.0); MEAN PLATELET VOLUME 11.8 fL (7.9-10.8); MONOCYTES # (AUTO) 0.3 10^3/uL (0.0-1.0); MONOCYTES % (AUTO) 1.8 %; NEUTROPHILS # (AUTO) 13.1 10^3/uL (1.5-6.6); NEUTROPHILS % (AUTO) 95.6 %; NRBC ABSOLUTE COUNT (AUTO) 0.06 x10^3/uL; NUCLEATED RED BLOOD CELLS AUTO 0.4 /100WBC; PLT - PLATELET COUNT 201 10^3/uL (130-450); RED BLOOD COUNT 4.21 10^6/uL (4.20-5.40); RED CELL DISTRIBUTION WIDTH 16.1 % (12.0-15.0); WHITE BLOOD COUNT 13.7 x10^3/uL (4.8-10.8)
[2023-07-13 14:08] LABS: ALBUMIN 2.8 g/dL (3.2-5.5); BILIRUBIN,TOTAL 0.4 mg/dL (0.2-1.0); CALCIUM 9.2 mg/dL (8.5-10.3); CREATININE 0.9 mg/dL (0.6-1.3); POTASSIUM 4.8 mmol/L (3.5-4.5); TOTAL PROTEIN 5.7 g/dL (6.4-8.9)
--- NOTE | 2023-07-13 18:05 | CONSULTATION NOTE ---
Surgery Consult - Admit Date Hospital Admission Date: 07/12/23 - Consult Date Consult Date: 07/13/23 Requesting Provider: Dr Cardona - Home Meds/Allergies Home Medications: Patient History Medication Instructions Recorded Confirmed No Known Home Medications 07/13/23 07/13/23 Allergies/Adverse Reactions: Allergies Allergy/AdvReac Type Severity Reaction Status Date / Time Penicillins Allergy Rash Verified 07/12/23 12:38 - Vital Signs Vital Signs: Last Vital Signs Temp 97.3 F L 07/13/23 15:58 Pulse 82 07/13/23 15:58 Resp 16 07/13/23 15:58 BP 92/59 L 07/13/23 15:58 Pulse Ox 92 07/13/23 15:58 O2 Flow Rate 1 07/13/23 08:00 Intake & Output: Intake & Output 07/10/23 07/11/23 07/12/23 07/13/23 23:59 23:59 23:59 23:59 Intake Total 1490 1420 Output Total 25 251 Balance 1465 1169 - Lab Results Result Diagrams: 07/13/23 08:47 07/13/23 08:47 - Consultation Note Consultation Note: I am asked by Dr. Cardona to evaluate Rojelio Rosado for two concerns: 1) CT scan of the chest suggestive of distal esophageal obstruction. 2) RLE foreign body (old sock thread of wool or nylon) embedded into the skin above the ankle and digits 3/4 The patient has severe scoliosis with acute angulation of her head and neck ante rior and to the left. She is edentulous and able to swallow non-solid nutrition without difficulty. She denies nausea, emesis, or drooling. She has no chest pain. I reviewed her CT scan and there is severe angulation of the esophagus at the hiatus along with the aorta. The esophagus is somewhat dilated. I can not tell if there is an intra-luminal esophageal mass on this image study. There is a partially embedded fiber (wool or nylon) in the skin/SQ tissue above the ankle and within the base of the 3rd and 4th digits. Assessment: 1) CT scan of the chest suggestive of distal esophageal obstruction. There is discordance between the CT findings and her lack of UGI symptoms. I hesitate to offer EGD based on the CT findings because she is asymptomatic, her severe cervical scoliosis will make esophageal intubation very difficult, and endotracheal intubation may be impossible if the airway became compromised during the sedation for the procedure. If EGD became necessary, pre-procedure anesthesia evaluation is indicated. 2) RLE foreign body (old sock thread of wool or nylon) embedded into the skin above the ankle and digits 3/4 Plan: 1) I will review with radiology the CT scan tomorrow. Perhaps we can offer an alternative diagnostic image modality that would be less risky for the patient than EGD under sedation. 2) I will attempt to remove as much of the ankle foreign body tomorrow at the bedside using local anesthesia. Russ Marks MD, [facility] General Surgery Service
[2023-07-14 05:34] LABS: BASOPHILS % (AUTO) 0.3 %; EOSINOPHILS % (AUTO) 0.3 %; HCT - HEMATOCRIT 40.6 % (37.0-47.0); HGB - HEMOGLOBIN 12.5 g/dL (12.0-16.0); LYMPHOCYTES % (AUTO) 3.9 %; MEAN CORPUSCULAR HEMOGLOBIN 30.8 pg (27.0-31.0); MEAN CORPUSCULAR HGB CONC 30.8 g/dL (32.0-36.0); MONOCYTES % (AUTO) 3.5 %; NEUTROPHILS % (AUTO) 86.6 %; PLT - PLATELET COUNT 197 10^3/uL (130-450); RED BLOOD COUNT 4.06 10^6/uL (4.20-5.40)
[2023-07-14 05:45] LABS: ABNORMAL LYMPHS % (MANUAL) 0 %
[2023-07-14 05:54] LABS: ALBUMIN 2.6 g/dL (3.2-5.5); ALBUMIN/GLOBULIN RATIO 0.9 (1.0-2.2); BILIRUBIN,TOTAL 0.3 mg/dL (0.2-1.0); CALCIUM 8.9 mg/dL (8.5-10.3); POTASSIUM 5.2 mmol/L (3.5-4.5); TOTAL PROTEIN 5.4 g/dL (6.4-8.9)
[2023-07-14 06:10] LABS: BAND NEUTROPHILS % (MANUAL) 1 %; DIFFERENTIAL COMMENT MANUAL DIFFERENTIAL; LYMPHOCYTES # (MANUAL) 0.6 10^3/uL (1.5-3.5); LYMPHOCYTES % (MANUAL) 7 %; MONOCYTES # (MANUAL) 0.4 10^3/uL (0.0-1.0); PLATELET ESTIMATE, MANUAL NORMAL (130-450,000) (NORMAL); RBC MORPHOLOGY (MULTIPLE) NORMAL APPEARANCE (NORMAL)
[2023-07-14] MEDS: PRENATAL VITAMIN TABLET PO SCH (10:06)
--- NOTE | 2023-07-14 10:10 | OPERATIVE REPORT ---
Operative Report - General Admit Date: 07/12/23 - Other Other Information/Narrative: PREOPERATIVE DIAGNOSIS: Rojelio Rosado is a 78 year old female who has elastic sock fibers embedded in the skin and subcutaneous tissue above and around the ankle and around the base of the 3rd digit of the right lower extremity. The embedded fibers are causing a foreign body reaction such that the areas of concern are painful with areas of infection and cellulitis. POSTOPERATIVE DIAGNOSIS: Same NAME OF PROCEDURE: Excision of foreign body (thread) from the base of the 3rd digit and from above the ankle of the right lower extremity SURGEON: Russ Marks MD, FACS LOCATION: Bedside ANESTHESIA: 1% lidocaine with epinephrine (2 cc). ESTIMATED BLOOD LOSS: 1 mL. DRAINS: None SPECIMEN: None COMPLICATIONS None FINDINGS: Multiple strands of partially degraded, circumferentially oriented, elastic sock fibers in the dermis and superficial subcutaneous tissue of the right ankle and right 3rd digit. DESCRIPTION OF OPERATION: After consent for the procedure was obtained, the patient's right ankle and foot were cleansed with an alcohol prep. The base of the 3rd dight was approached first. The visible strands protruding from the base of the 3rd digit were grasped and t he entry site into the skin anesthetized with local anesthesia. The strands were gently retracted from the wound. Bleeding was minimal. No other strands were identified. Attention was directed to the ankle. Multiple puncture sites were created after anesthetizing the skin with local anesthesia. The visible strands were identified and gently retracted from the dermis and subcutaneous tissue. A somewhat longer incision(1.5 cm) on the extensor aspect of the ankle was used to remove several strands that were particularly deep and firmly embedded. Once all of the visible strands were removed, the ankle and foot were cleansed with saline. Individual gauze pads were placed between the toes to prevent further maceration of the skin. Gauze was placed over the ankle operative sites and the gauze secured in place with a Kerlex rolled gauze from the toes to the lower leg. Rojelio tolerated the procedure well.
--- NOTE | 2023-07-14 11:09 | PROVIDER PROGRESS NOTE ---
Progress Note General Surgery Progress Note I reviewed the CT chest with our on-site radiologist. The proximal esophagus is somewhat dilated because it courses around the aorta which is angulated due to her scoliosis and experiences some degree of external compression from this angulation. There is no intraluminal mass present. There is air in the stomach which indicates a patent esophageal lumen and this corresponds to her lack of clinical symptoms related to her swallowing. Russ Marks MD, [facility] General Surgery Service
--- NOTE | 2023-07-14 13:54 | XRAY Report ---
PROCEDURE: Lumbar Spine 2-3V INDICATIONS: severely curved TECHNIQUE: 2 views of the lumbar spine were acquired. COMPARISON: None. FINDINGS: Bones: 5 [id number] vertebrae are present. There is prominent tilted or scoliotic bony alignme nt with the frontal view showing the patient spine convex leftward at the lumbosacral junction. No d efinite vertebral body compression fractures but quality of visualization on the lateral view is very limited. No suspicious bony lesions. Soft tissues: Overlying bowel gas pattern is normal. No suspicious soft tissue calcifications. IMPRESSION: Limited quality visualization due to pronounced convex leftward curvature at the lumbosacral junction but no definite compression fracture is found. Degenerative disc disease at L5-S1 is moderately timmy re. Reviewed by: Rigoberto John MD on 07/14/2023 1:53 PM PDT Approved by: Rigoberto John MD on 07/14/2023 1:53 PM PDT Station ID: [id number]
--- NOTE | 2023-07-14 14:08 | XRAY Report ---
PROCEDURE: Thoracic Spine 2V INDICATIONS: severely curved TECHNIQUE: 2 views of the thoracic spine were acquired. COMPARISON: Lumbosacral spine plain films same day.. FINDINGS: Bones: Quality of visualization is very limited due to pronounced convex rightward mid thoracic scoli osis and patient tilt leftward. No fractures or dislocations. No suspicious bony lesions. 12 pairs of ribs are noted, and appear intact where visualized. Soft tissues: No paravertebral stripe thickening. Retrocardiac left lower lobe airspace opacificati on-atelectasis versus pneumonia. IMPRESSION: No acute bony abnormality but quality of this study is very limited due to pronounced convex rightwar d scoliosis and patient tilt leftward. No significant degenerative change. Apparent left lower lobe retrocardiac pneumonia or atelectasis. Reviewed by: Rigoberto John MD on 07/14/2023 2:07 PM PDT Approved by: Rigoberto John MD on 07/14/2023 2:07 PM PDT Station ID: [id number]
--- NOTE | 2023-07-14 16:02 | PROVIDER PROGRESS NOTE ---
Assessment/Plan - Problem List (1) Atelectasis of left lung Assessment/Plan: Conclusion/Plan: Chest CT taken in the ED on 07/11 showed patchy left basilar atelectasis. Thoracic spine X-ray today showed apparent left lower lobe retrocardiac pneumonia or atelectasis. Today patient admits to some increased difficulty breathing. She has developed a fever today and has increased oxygen demand. Her oxygen has increased to 3L and nurses notice her breathing is more labored especially when sleeping. She also appears more short of breath when talking. Due to atelectasis and potential pneumonia we have changed her cefazolin to ceftriaxone and azithromycin. We will continue to monitor vitals. She denies chest pain or cough. She will continue antibiotics until symptoms including se psis and cellulitis improve. (2) Sepsis Conclusion/Plan: Mrs. Rosado is a 78 year old female who presented to the ED on 07/11 with her due to chronic neck pain and rash of her bilateral lower legs. She has a fear of doctors and has not received healthcare in 35+ years. In the ED her EKG showed Atrial fibrillation. Labs demonstrated hypernatremia (sodium was 146) with moderate lactic acidosis (lactic acid was 2.3) and pre-renal azotemia (BUN was 71, Createnine was 0.8, GFR was 70). Extensive imaging did not show any acute findings but an esophageal dilation and compression due to severe kyphscoliosis was seen. She was diagnosed with Afib, protein-calorie malnutrition, cellulitis of bilateral lower legs and she fit septic criteria warranting her admission. Blood cultures were gathered and patient was started on 1g IV Cefazolin which was continued upon admission every 6 hours as well as IV fluids, enoxaparin for DVT prophylaxis, and tylenol for back pain. Today: Her temperature increased to 38.5 this morning but decreased to 37.3 this afternoon. Her blood cultures are still pending. No growth after 2 days. She has continued IV antibiotics which were changed from cefazolin to ceftriaxone and azythromycin today (due to atelectasis). Mrs. Rosado has been refusing her enoxaparin for DVT prophylaxis. Patient reports that she is feeling more weak and hopeless. She states that she feels she has made no progress and wants to give up today. Plan to continue antibiotics. When cultures return we will assess antibiotic efficacy and change if indicated. We will plan to re-check labs again tomorrow (07/14). (3) Cellulitis Conclusion/Plan: Mrs. Rosado met with Dr. Marks yesterday evening for surgery consult. He concluded that an excisional biopsy was needed to remove elastic sock fibers embedded in the skin and subcutaneous tissue above and around the ankle and arou nd the base of the 3rd digit of the right lower extremity. The embedded fibers were causing a foreign body reaction such that the areas of concern are painful with areas of infection and cellulitis and need to be removed. The excisional biopsy was performed this morning and I witnessed Mrs. Rosado tolerate the procedure well. Following the procedure individual gauze pads were placed between the toes to prevent further maceration of the skin. Gauze was placed over the ankle operative sites and the gauze secured in place with a Kerlex rolled gauze from the toes to the lower leg. Dr. Marks recommended that follow up with home hospice rn for nail care of her onychomycosis upon discharge. Upon physical exam later in the day there was a large bullae on the right posterior calf that was draining. Plan to continue IV antibiotics which were changed from cefazolin to ceftriaxone and azythromycin today (due to atelectasis). We will also continue to bandage wound sites from excisional biopsy and apply mipilex wrap to the right posterior calf. Encouraged patient to follow up with home hospice rn in outpatient setting after she is discharged for management of onychomycosis. (4) Afib Conclusion/Plan: A-fib seen on EKG in the ED on 07/11. Patients HR is mildly elevated today at 103 bpm. Rhythm sounded regular on auscultation. Patient denies symptoms of chest pain or palpitations but admits to increased shortness of breath likely related to atelectasis .Patient is hesitant to medications due to distrust in the healthcare system. We will plan to have a discussion with Mrs. Rosado and her about starting anticoagulation treatment for her A-fib. An Echo has been ordered but has not been completed yet. Plan to get ECHO to determine if cardioversion in the future would be appropriate. (5) Kyphoscoliosis deformity of spine Conclusion/Plan: Mrs. Rosado presented to the ED on 07/11 complaining primarily of neck pain with her neck fixed in left lateral flexion with her chin touching her chest. CT imaging showed severe dextrocurvature of the thoracic and lumbar spine. Today she states that her back pain is stable with tylenol and she is laying comfortably in the hospital bed. The cause of her deformity is unknown at this time. Xray of the thoracic spine showed: No bony abnormality, but quality of study is very limited due to pronounced convex rightward scoliosis and patient tilt leftward. No significant degenerative changes. Xray of the lumbar spine showed: limited quality visualization due to pronounced convex leftward curvature and the lumbosacral junction. No definite compression fracture found. Degenerative disc disease at L5-S1 is moderately severe. We ordered a series of spinal X-rays to determine the level of curvature of her spine so that we can consider consulting outpatient orthopedics better understand the cause of her severe deformity and if there are any options for treatment. (6) Prerenal azotemia Conclusion/Plan: Mrs. Rosado was seen to have pre-renal Azotemia on labs in the ED on 07/11 (BUN was 71, Createnine was 0.8, GFR was 70). She was started on IV fluids in the ED and they were continued upon admission. Yesterday her BUN was 61, GFR was 61 and Createnine was 0.9. Today's labs showed BUN of 62, GFR of 54, and Createnine of 1.0. Mrs. Rosados labs for the past 2 days not congruent with what we would expect given adequate IV re-hydration. Due to decline in GFR and increasing hyperkalemia we are suspicious that these labs may reflect the releasing of cellular media from both being in a laying position after many days in her wheelchair as well as release of pressure on her ankle following excisional biopsy. We will order a LDH and CK-MB to further assess if this could explain these laboratory inconsistencies. we have stopped IV fluids as Mrs. Rosado ap pears to be fluid overloaded with hand swelling and clear scleral edema. We will continue to monitor kidney function and plan to re-check labs again tomorrow. (7) Severe protein-calorie malnutrition Conclusion/Plan: Mrs. Rosado appeared malnourished at her arrival to the ED yesterday. She has been able to eat some since her admission and denies feeling hungry. Plan to continue to monitor her nutrition and have her speak with a inspector fabric. (8) Esophageal stricture Conclusion/Plan: Chest CT in the ED showed narrowing of the distal esophagus which "may potentially represent the presence of a benign stricture or mass resulting in significant dilation of the more proximal esophagus" per radiology report. Wanda ent denies any dysphagia or reflux but does not eat large meals. Dr. Marks reviewed chest CT with radiologist and concluded that "The proximal esophagus is somewhat dilated because it courses around the aorta which is angulated due to her scoliosis and experiences some degree of external compression from this angulation. There is no intraluminal mass present. There is air in the stomach which indicates a patent esophageal lumen and this corresponds to her lack of clinical symptoms related to her swallowing". There is no further imaging indicated at this time. Patient is asymptomatic and eating well. - Current Meds Current Meds: Current Medications Generic Name Dose Route Start Last Admin Trade Name Freq PRN Reason Stop Dose Admin Acetaminophen 650 mg 07/12/23 16:16 07/14/23 14:29 Acetaminophen 325 Mg Tablet PO 650 mg Q4HR PRN Administration Pain 1 to 4, or Fever Cholecalciferol 50 mcg 07/13/23 09:00 07/14/23 10:06 Cholecalciferol 25 Mcg Tablet PO 50 mcg DAILY SHERRIE Administration Enoxaparin Sodium 40 mg 07/13/23 09:00 07/14/23 10:12 Enoxaparin 40 Mg/0.4 Ml Syringe SUBQ Not Given DAILY SHERRIE Cefazolin Sodium 1 gm/ Sodium 100 mls @ 200 mls/hr 07/12/23 20:00 07/14/23 15:34 Chloride IV 200 mls/hr Q8H SHERRIE Infusion Multivit/Folic Acid/Iron 1 tab 07/14/23 08:00 07/14/23 10:06 Vitamin Tablet PO 1 tab DAILYWM SHERRIE Administration Sodium Chloride 10 ml 07/12/23 16:16 07/12/23 20:08 Sodium Chloride Flush 0.9% 10 Ml Syringe IVP 10 ml PRN PRN Administration NEEDED PER PROVIDER ORDERS Sodium Chloride 10 ml 07/12/23 17:00 07/14/23 10:06 Sodium Chloride Flush 0.9% 10 Ml Syringe IVP 10 ml 0100,0900,1700 SHERRIE Administration - Lab Result Lab results reviewed: Yes Fish Bone Diagrams: 07/14/23 05:20 07/14/23 05:20 - Diagnostic Imaging Results Diagnostic Imaging Results: See rad report - Additional Planning Condition/Complexity: Stable Plan Discussed with:: Patient, Spouse Time Spent: 31-60 minutes Subjective - Subjective Patient Reports: Fatigue, Shortness of Breath Nursing Reports: Shortness of Breath Objective Vital Signs: Vital Signs - 24 hr 07/13/23 07/13/23 07/13/23 15:58 23:50 23:52 Temperature 36.3 C L 36.6 C Heart Rate [ 82 101 H Brachial] Respiratory 16 20 Rate Blood Pressure 92/59 L 95/63 [Right Brachial artery] O2 Saturation 92 87 L 94 If not protocol 1 : Oxygen Flow, liters/minute 07/14/23 07/14/23 07/14/23 07:50 11:15 12:00 Temperature 36.6 C 38.5 C H 37.3 C Heart Rate [ 103 H 110 H 103 H Brachial] Respiratory 18 22 20 Rate Blood Pressure 93/58 L 106/66 102/68 [Right Brachial artery] O2 Saturation 93 86 L 95 If not protocol 1 1 : Oxygen Flow, liters/minute 07/14/23 07/14/23 14:22 15:23 Temperature 38.3 C H 37.0 C Heart Rate [ 105 H Brachial] Respiratory 20 Rate Blood Pressure 90/63 [Right Brachial artery] O2 Saturation 92 If not protocol 1 2.5 : Oxygen Flow, liters/minute Oxygen O2 Source Nasal cannula I&O (Last 24 Hrs): Intake and Output Totals x24h 07/12/23 07/13/23 07/14/23 23:59 23:59 23:59 Intake Total 1490 1668 883.333 Output Total 25 251 200 Balance 1465 1417 683.333 General: Alert, Cooperative, Mild distress HEENT: Other (bilateral clear scleral edema worse in the left eye) Neuro: Alert, CN 2-12 Grossly Intact, Other (patient appears more somnolent throughout the day but was awake and alert during the exam) Cardiovascular: Other (Tachycardia with regular rhythm auscultated on exam.) Respiratory: Breath sounds nml Abdomen: Normal bowel sounds, No tenderness Extremities: Normal pulses, Other (edema of bilateral lower legs but improved slightly from yesterday. bilateral hands and fingers appear edematous.) Comments/Notes: Right foot and ankle bandaged during exam. Bilateral lower legs appear warm and erythematous with significant scaling and scattered eschars. There is a large draining bullae on the right posterior calf. Onychomycosis seen on all toenails. - Results Results: Laboratory Results WBC 9.0 x10^3/uL (4.8-10.8) 07/14/23 05:20 RBC 4.06 10^6/uL (4.20-5.40) L 07/14/23 05:20 Hgb 12.5 g/dL (12.0-16.0) 07/14/23 05:20 Hct 40.6 % (37.0-47.0) 07/14/23 05:20 MCV 100.0 fL (81.0-99.0) H 07/14/23 05:20 MCH 30.8 pg (27.0-31.0) 07/14/23 05:20 MCHC 30.8 g/dL (32.0-36.0) L 07/14/23 05:20 RDW 16.0 % (12.0-15.0) H 07/14/23 05:20 Plt Count 197 10^3/uL (130-450) 07/14/23 05:20 MPV 11.0 fL (7.9-10.8) H 07/14/23 05:20 Neut # (Auto) Not Reportable 07/14/23 05:20 Lymph # (Auto) Not Reportable 07/14/23 05:20 [place] # (Auto) Not Reportable 07/14/23 05:20 Eos # (Auto) Not Reportable 07/14/23 05:20 Baso # (Auto) Not Reportable 07/14/23 05:20 Absolute Nucleated RBC Not Reportable 07/14/23 05:20 Total Counted 100 07/14/23 05:20 Band Neuts % (Manual) 1 % (0-10) 07/14/23 05:20 Abnorm Lymph % (Manual) 0 % 07/14/23 05:20 Nucleated RBC % Not Reportable 07/14/23 05:20 Neutrophils # (Manual) 8.0 10^3/uL (1.5-6.6) H 07/14/23 05:20 Lymphocytes # (Manual) 0.6 10^3/uL (1.5-3.5) L 07/14/23 05:20 Monocytes # (Manual) 0.4 10^3/uL (0.0-1.0) 07/14/23 05:20 Eosinophils # (Manual) 0.0 10^3/uL (0-0.7) 07/14/23 05:20 Basophils # (Manual) 0.0 10^3/uL (0-0.1) 07/14/23 05:20 Differential Comment MANUAL DIFFERENTIAL 07/14/23 05:20 Platelet Estimate NORMAL (130-450,000) (NORMAL) 07/14/23 05:20 RBC Morph Micro Appear NORMAL APPEARANCE (NORMAL) 07/14/23 05:20 VBG pH 7.421 (7.31-7.41) H 07/12/23 13:05 VBG pCO2 37.1 mmHg (41-51) L 07/12/23 13:05 VBG pO2 93.9 mmHg (25-47) H 07/12/23 13:05 VBG HCO3 23.6 mmol/L (23-28) 07/12/23 13:05 VBG Total CO2 24.7 mmol/L (24-29) 07/12/23 13:05 VBG O2 Saturation 97.4 % (60-80) H 07/12/23 13:05 VBG Base Excess -0.4 mmol/L (-2 - +2) 07/12/23 13:05 Sodium 141 mmol/L (135-145) 07/14/23 05:20 Potassium 5.2 mmol/L (3.5-4.5) H 07/14/23 05:20 Chloride 107 mmol/L (101-111) 07/14/23 05:20 Carbon Dioxide 31 mmol/L (21-32) 07/14/23 05:20 Anion Gap 3.0 (6-13) L 07/14/23 05:20 BUN 62 mg/dL (6-20) H 07/14/23 05:20 Creatinine 1.0 mg/dL (0.6-1.3) 07/14/23 05:20 Estimated GFR (MDRD) 54 (>89) L 07/14/23 05:20 Glucose 100 mg/dL (74-104) 07/14/23 05:20 Lactic Acid 2.3 mmol/L (0.5-2.2) H 07/12/23 13:05 Calcium 8.9 mg/dL (8.5-10.3) 07/14/23 05:20 Phosphorus 2.2 mg/dL (2.5-5.0) L 07/12/23 13:05 Magnesium 2.5 mg/dL (1.7-2.3) H 07/12/23 13:05 Total Bilirubin 0.3 mg/dL (0.2-1.0) 07/14/23 05:20 AST 20 IU/L (10-42) 07/14/23 05:20 ALT 11 IU/L (10-60) 07/14/23 05:20 Alkaline Phosphatase 154 IU/L (42-121) H 07/14/23 05:20 Troponin I High Sens 6.3 ng/L (2.3-14.8) 07/12/23 13:05 Total Protein 5.4 g/dL (6.4-8.9) L 07/14/23 05:20 Albumin 2.6 g/dL (3.2-5.5) L 07/14/23 05:20 Globulin 2.8 g/dL (2.1-4.2) 07/14/23 05:20 Albumin/Globulin Ratio 0.9 (1.0-2.2) L 07/14/23 05:20 Vitamin B12 1475 pg/mL (180-914) H 07/13/23 08:47 Folate 5.9 ng/mL (5.90 - >24.8) 07/13/23 08:47 Urine Color YELLOW 07/12/23 13:37 Urine Clarity CLEAR (CLEAR) 07/12/23 13:37 Urine pH 6.0 PH (5.0-7.5) 07/12/23 13:37 Ur Specific [place] 1.015 (1.002-1.030) 07/12/23 13:37 Urine Protein TRACE mg/dL (NEGATIVE) 07/12/23 13:37 Urine Glucose (UA) NEGATIVE mg/dL (NEGATIVE) 07/12/23 13:37 Urine Ketones NEGATIVE mg/dL (NEGATIVE) 07/12/23 13:37 Urine Occult Blood NEGATIVE (NEGATIVE) 07/12/23 13:37 Urine Nitrite NEGATIVE (NEGATIVE) 07/12/23 13:37 Urine Bilirubin NEGATIVE (NEGATIVE) 07/12/23 13:37 Urine Urobilinogen 0.2 (NORMAL) E.U./dL (NORMAL) 07/12/23 13:37 Ur Leukocyte Esterase NEGATIVE (NEGATIVE) 07/12/23 13:37 Ur Microscopic Review NOT INDICATED 07/12/23 13:37 Urine Culture Comments NOT INDICATED 07/12/23 13:37 Nasal Adenovirus (PCR) NOT DETECTED 07/12/23 12:48 Nasal B. parapertussis DNA (PCR) NOT DETECTED 07/12/23 12:48 Nasal Coronavir 229E PCR NOT DETECTED 07/12/23 12:48 Nasal Coronavir HKU1 PCR NOT DETECTED 07/12/23 12:48 Nasal Coronavir NL63 PCR NOT DETECTED 07/12/23 12:48 Nasal Coronavir OC43 PCR NOT DETECTED 07/12/23 12:48 Nasal Enterovir/Rhinovir PCR NOT DETECTED 07/12/23 12:48 Nasal Influenza B PCR NOT DETECTED 07/12/23 12:48 Nasal Influenza A PCR NOT DETECTED 07/12/23 12:48 Nasal Parainfluen 1 PCR NOT DETECTED 07/12/23 12:48 Nasal Parainfluen 2 PCR NOT DETECTED 07/12/23 12:48 Nasal Parainfluen 3 PCR NOT DETECTED 07/12/23 12:48 Nasal Parainfluen 4 PCR NOT DETECTED 07/12/23 12:48 Nasal RSV (PCR) NOT DETECTED 07/12/23 12:48 Nasal B.pertussis DNA PCR NOT DETECTED 07/12/23 12:48 Nasal C.pneumoniae (PCR) NOT DETECTED 07/12/23 12:48 Jourdan Human Metapneumo PCR NOT DETECTED 07/12/23 12:48 Nasal M.pneumoniae (PCR) NOT DETECTED 07/12/23 12:48 Nasal SARS-CoV-2 (PCR) NOT DETECTED 07/12/23 12:48 Urine Opiates Screen NEGATIVE (NEGATIVE) 07/12/23 13:37 Ur Buprenorphine Scrn NEGATIVE (NEGATIVE) 07/12/23 13:37 Ur Oxycodone Screen NEGATIVE (NEGATIVE) 07/12/23 13:37 Urine Methadone Screen NEGATIVE (NEGATIVE) 07/12/23 13:37 Ur Barbiturates Screen NEGATIVE (NEGATIVE) 07/12/23 13:37 Ur Tricyclics Screen NEGATIVE (NEGATIVE) 07/12/23 13:37 Ur Phencyclidine Scrn NEGATIVE (NEGATIVE) 07/12/23 13:37 Ur Amphetamine Screen NEGATIVE (NEGATIVE) 07/12/23 13:37 U Methamphetamines Scrn NEGATIVE (NEGATIVE) 07/12/23 13:37 U Benzodiazepines Scrn NEGATIVE (NEGATIVE) 07/12/23 13:37 Urine Cocaine Screen NEGATIVE (NEGATIVE) 07/12/23 13:37 U Cannabinoids Screen NEGATIVE (NEGATIVE) 07/12/23 13:37 Ur Drug Screen Comment CUTOFF CONC BELOW: 07/12/23 13:37 Ethyl Alcohol < 10.0 mg/dL 07/12/23 13:05 Sepsis Event Note (H) - Evaluation Current Stage of Sepsis: Sepsis Possible source of Sepsis: positive: Skin/soft tissue - Sepsis Criteria Sepsis Criteria: Recorded Temperature greater than 38.3C or Less than 36C, Recorded Heart Rate greater than 90 bpm, Respiratory: Increasing oxygen requirements, WBC count greater than 12,000 or less than 4000 Current Medications - Current Medications Current Medications: Active Medications Acetaminophen (Acetaminophen 325 Mg Tablet) 650 mg PO Q4HR PRN PRN Reason: Pain 1 to 4, or Fever Last Admin: 07/14/23 14:29 Dose: 650 mg Cholecalciferol (Cholecalciferol 25 Mcg Tablet) 50 mcg PO DAILY [facility] Last Admin: 07/14/23 10:06 Dose: 50 mcg Enoxaparin Sodium (Enoxaparin 40 Mg/0.4 Ml Syringe) 40 mg SUBQ DAILY [facility] Last Admin: 07/14/23 10:12 Dose: Not Given Ceftriaxone Sodium 2 gm/ (Sodium Chloride) 100 mls @ 200 mls/hr IV DAILY [facility] Last Admin: 07/14/23 17:56 Dose: 200 mls/hr Azithromycin 500 mg/ Sodium (Chloride) 250 mls @ 250 mls/hr IV DAILY [facility] Ondansetron HCl (Ondansetron Odt 4 Mg Tablet) 4 mg TL Q6HR PRN PRN Reason: Nausea / Vomiting Ondansetron HCl (Ondansetron 4 Mg/2 Ml Vial) 4 mg IVP Q6HR PRN PRN Reason: Nausea / Vomiting Oxycodone HCl (Oxycodone 5 Mg Tablet) 5 mg PO Q4HR PRN PRN Reason: Pain 5 to 7 Multivit/Folic Acid/Iron ( Vitamin Tablet) 1 tab PO DAILYWM [facility] Last Admin: 07/14/23 10:06 Dose: 1 tab Sodium Chloride (Sodium Chloride Flush 0.9% 10 Ml Syringe) 10 ml IVP PRN PRN PRN Reason: NEEDED PER PROVIDER ORDERS Last Admin: 07/12/23 20:08 Dose: 10 ml Sodium Chloride (Sodium Chloride Flush 0.9% 10 Ml Syringe) 10 ml IVP 010 0,0900,1700 SHERRIE Last Admin: 07/14/23 16:16 Dose: 10 ml No Known Home Medications 07/13/23
[2023-07-14] MEDS: BUFFERED LIDOCAINE 10 ML SYRINGE SUBQ STA (16:14)
[2023-07-14] MEDS: cefTRIAXone 2 GM in SODIUM CHLORIDE 0.9% MINIBAG 100 ML IV SCH (17:56)
[2023-07-14] MEDS: AZITHROMYCIN INJ 500 MG in SODIUM CHLORIDE 0.9% 250 ML IV SCH (18:31)
[2023-07-15 05:24] LABS: BASOPHILS % (AUTO) 0.1 %; EOSINOPHILS % (AUTO) 0.8 %; HCT - HEMATOCRIT 41.9 % (37.0-47.0); HGB - HEMOGLOBIN 12.3 g/dL (12.0-16.0); LYMPHOCYTES % (AUTO) 5.5 %; MEAN CORPUSCULAR HEMOGLOBIN 30.8 pg (27.0-31.0); MEAN CORPUSCULAR HGB CONC 29.4 g/dL (32.0-36.0); MEAN CORPUSCULAR VOLUME 104.8 fL (81.0-99.0); MEAN PLATELET VOLUME 10.4 fL (7.9-10.8); MONOCYTES % (AUTO) 5.2 %; NEUTROPHILS % (AUTO) 76.5 %; PLT - PLATELET COUNT 155 10^3/uL (130-450); RED CELL DISTRIBUTION WIDTH 16.2 % (12.0-15.0); WHITE BLOOD COUNT 9.1 x10^3/uL (4.8-10.8)
[2023-07-15 05:34] LABS: ABNORMAL LYMPHS % (MANUAL) 0 %
[2023-07-15 06:17] LABS: BAND NEUTROPHILS % (MANUAL) 3 %; DIFFERENTIAL COMMENT MANUAL DIFFERENTIAL; LYMPHOCYTES # (MANUAL) 0.7 10^3/uL (1.5-3.5); LYMPHOCYTES % (MANUAL) 8 %; METAMYELOCYTES % (MANUAL) 2 %; MONOCYTES # (MANUAL) 0.5 10^3/uL (0.0-1.0); MYELOCYTES % (MANUAL) 2 %; NEUTROPHILS # (MANUAL) 7.6 10^3/uL (1.5-6.6); PLATELET ESTIMATE, MANUAL NORMAL (130-450,000) (NORMAL); RBC MORPHOLOGY (MULTIPLE) NORMAL APPEARANCE (NORMAL)
[2023-07-15 09:08] LABS: CALCIUM 8.7 mg/dL (8.5-10.3); CREATININE 0.8 mg/dL (0.6-1.3); POTASSIUM 5.1 mmol/L (3.5-4.5)
--- NOTE | 2023-07-15 10:28 | PROVIDER PROGRESS NOTE ---
Assessment/Plan - Problem List (1) Atelectasis of left lung Assessment/Plan: Conclusion/Plan: Chest CT taken in the ED on 07/11 showed patchy left basilar atelectasis. Thoracic spine X-ray today showed apparent left lower lobe retrocardiac pneumonia or atelectasis. Yesterday patient developed a fever, had increased oxygen demand and admits to increased difficulty breathing without chest pain or cough. Her oxygen has increased to 3L and nurses notice her breathing is more labored especially when sleeping. She also appeared more short of breath when talking. Due to atelectasis with potential pneumonia her IV antibiotics were changed from cefazolin to ceftriaxone and azithromycin. She is on day 2/3 of azithromycin. She is on day 2/ of Ceftriaxone. Will plan to change to PO ceftriaxone in 2 days (07/16) We had originally anticipated discharging her today for her improving cellulitis. However, due to hypoxia and probable new pneumonia she will have to remain admitted for another night or two for IV antibiotics. Yesterday she was feeling quite hopeless and stated that she "wants to give up" and that "she is dying", which has been upsetting for her and son. Mrs. Rosado had been refusing her enoxaparin for DVT prophylaxis but accepted it today. Today she is more somnolent but is breathing easier and denies shortness of breath. She denies feeling in any pain today. Will plan to stop azithromycin after tomorrow and transition to PO ceftriaxone on 07/16. We will continue to monitor vitals and labs. (2) Sepsis Conclusion/Plan: Mrs. Rosado is a 78 year old female who presented to the ED on 07/11 with her due to chronic neck pain and rash of her bilateral lower legs. She has a fear of doctors and has not received healthcare in 35+ years. In the ED her EKG showed Atrial fibrillation. Labs demonstrated hypernatremia (sodium was 146) with moderate lactic acidosis (lactic acid was 2.3) and pre-renal azotemia (BUN was 71, Createnine was 0.8, GFR was 70). Extensive imaging did not show any acute findings but an esophageal dilation and compression due to severe kyphscoliosis was seen. She was diagnosed with Afib, protein-calorie malnutrition, cellulitis of bilateral lower legs and she fit septic criteria warranting her admission. Blood cultures were gathered and patient was started on 1g IV Cefazolin as well as IV fluids, enoxaparin for DVT prophylaxis, and tylenol for back pain. Yesterday her IV cefazolin was changed to ceftriaxone and azithromycin due to atelectasis with probable pneumonia following a fever and worsening respiratory status. Today: Her temperature was 36.3 and blood cultures showed no growth after two days. WBCs were 9.1. Respiration rate was 16. Patient is still having increased oxygen demand with 97% on 3L. She is on day 4 of antibiotics and has continued IV ceftriaxone and azithromycin. Plan to continue antibiotics and monitoring vitals. (3) Cellulitis Conclusion/Plan: Mrs. Rosado recieved excisional biopsy to remove elastic sock fibers embedded in the skin and subcutaneous tissue above and around the ankle and around the base of the 3rd digit of the right lower extremity yesterday. She tolerated the procedure well. Edema had been decreasing as well as erythema and flakiness of bilateral legs. The large bullae on right posterior calf was dressed with mipilex yesterday. For her cellulitis she is on day 4 of antibiotics. Her course of antibiotics has been extended due to pneumonia but regimen of ceftriaxone with continue to cover her cellulitis. Encouraged patient to follow up with medication aid in outpatient setting after she is discharged for management of onychomycosis. (4) Afib Conclusion/Plan: A-fib seen on EKG in the ED on 07/11. Patients HR is at 72 bpm. Rhythm sounded regular on auscultation. Patient denies symptoms of chest pain or palpitations but admits to increased shortness of breath likely related to atelectasis . Patient is hesitant to medications due to distrust in the healthcare system. We will plan to have a discussion with Mrs. Rosado and her about starting anticoagulation treatment for her A-fib when she is discharged to a [facility] facility. An Echo has been ordered but has not been completed yet. Plan to get ECHO to determine if cardioversion in the future would be appropriate. Will obtain and EKG today to determine if patient is still in Afib. (5) Kyphoscoliosis deformity of spine Conclusion/Plan: Mrs. Rosado presented to the ED on 07/11 complaining primarily of neck pain with her neck fixed in left lateral flexion with her chin touching her chest. CT im aging showed severe dextrocurvature of the thoracic and lumbar spine. Today she states that her back pain is stable with tylenol and she is laying comfortably in the hospital bed. The cause of her deformity is unknown at this time. Patient is only able to life her head slightly for 10 secconds before she has to rest it on her chest due to a combination of weakness and pain. Physical therapy session from yesterday revealed: Xray of the thoracic spine showed: No bony abnormality, but quality of study is very limited due to pronounced convex rightward scoliosis and patient tilt leftward. No significant degenerative changes. Xray of the lumbar spine showed: limited quality visualization due to pronounced convex leftward curvature and the lumbosacral junction. No definite compression fracture found. Degenerative disc disease at L5-S1 is moderately severe. We ordered a series of spinal X-rays to determine the level of curvature of her spine so that we can consider consulting outpatient orthopedics better understand the cause of her severe deformity and if there are any options for treatment. (6) Prerenal azotemia Conclusion/Plan: Mrs. Rosado was seen to have pre-renal Azotemia on labs in the ED on 07/11 (BUN was 71, Createnine was 0.8, GFR was 70) that was suspicious for dehydration. She was started on IV fluids in the ED and they were continued upon admission. For the past two days her GFR was trending downward and her createnine and po tassium were trending upward despite adequate IV hydration and even potential fluid overload demonstrated by hand swelling and clear scleral edema. We felt that labs may have reflected the releasing of cellular media from both being in a laying position after many days in her wheelchair as well as release of pressure on her ankle following excisional biopsy yesterday. Today her GFR was 70, Createnine was 0.8, BUN was 56 and her potassium was 5.1. Her labs are now trending in the right direction. We will consider re-starting IV fluids as needed as Mrs. Barrios oral intake has decreased over the past two days if she no longer appears fluid overloaded. We will continue to monitor labs and kidney function. (7) Severe protein-calorie malnutrition Conclusion/Plan: Mrs. Rosado appeared malnourished at her arrival to the ED yesterday. She has been able to eat some since her admission and denies feeling hungry. For the past two days she hasn't felt like eating much. Plan to continue to monitor her nutrition and have her speak with a tetryl blender operator. (8) Esophageal stricture Conclusion/Plan: Chest CT in the ED showed narrowing of the distal esophagus which "may potentially represent the presence of a benign stricture or mass resulting in significant dilation of the more proximal esophagus" per radiology report. Patient denies any dysphagia or reflux but does not eat large meals. Dr. Marks reviewed chest CT with radiologist and concluded that "The proximal esophagus is somewhat dilated because it courses around the aorta which is angulated due to her scoliosis and experiences some degree of external compression from this angulation. There is no intraluminal mass present. There is air in the stomach which indicates a patent esophageal lumen and this corresponds to her lack of clinical symptoms related to her swallowing". There is no further imaging indicated at this time. Patient is asymptomatic and eating well. - Current Meds Current Meds: Current Medications Generic Name Dose Route Start Last Admin Trade Name Freq PRN Reason Stop Dose Admin Acetaminophen 650 mg 07/12/23 16:16 07/14/23 14:29 Acetaminophen 325 Mg Tablet PO 650 mg Q4HR PRN Administration Pain 1 to 4, or Fever Cholecalciferol 50 mcg 07/13/23 09:00 07/15/23 08:08 Cholecalciferol 25 Mcg Tablet PO 50 mcg DAILY [facility]ER[facility]E Administration Enoxaparin Sodium 40 mg 07/13/23 09:00 07/15/23 08:07 Enoxaparin 40 Mg/0.4 Ml Syringe SUBQ 40 mg DAILY [facility]RIE Administration Ceftriaxone Sodium 2 gm/ 100 mls @ 200 mls/hr 07/14/23 17:41 07/15/23 08:40 Sodium Chloride IV Infused DAILY [facility]E Infusion Azithromycin 500 mg/ Sodium 250 mls @ 250 mls/hr 07/14/23 17:41 07/15/23 09 :23 Chloride IV 250 mls/hr DAILY [facility] Administration Multivit/Folic Acid/Iron 1 tab 07/14/23 08:00 07/15/23 08:08 Vitamin Tablet PO 1 tab DAILYWM [facility] Administration Sodium Chloride 10 ml 07/12/23 16:16 07/12/23 20:08 Sodium Chloride Flush 0.9% 10 Ml Syringe IVP 10 ml PRN PRN Administration NEEDED PER PROVIDER ORDERS Sodium Chloride 10 ml 07/12/23 17:00 07/15/23 08:08 Sodium Chloride Flush 0.9% 10 Ml Syringe IVP Not Given 0100,0900,1700 [facility] - Lab Result Fish Bone Diagrams: 07/15/23 05:06 07/15/23 05:06 Subjective - Subjective Patient Reports: Resting Comfortably, Fatigue Objective Vital Signs: Vital Signs - 24 hr 07/14/23 07/14/23 07/14/23 11:15 12:00 14:22 Temperature 38.5 C H 37.3 C 38.3 C H Heart Rate [ 110 H 103 H Brachial] Respiratory 22 20 Rate Blood Pressure 106/66 102/68 [Right Brachial artery] O2 Saturation 86 L 95 If not protocol 1 1 : Oxygen Flow, liters/minute 07/14/23 07/14/23 07/14/23 15:23 16:14 23:39 Temperature 37.0 C 37.0 C Heart Rate [ 105 H 77 Brachial] Respiratory 20 20 16 Rate Blood Pressure 90/63 102/60 [Right Brachial artery] O2 Saturation 92 97 100 If not protocol 2.5 3 3 : Oxygen Flow, liters/minute 07/15/23 07:27 Temperature 36.3 C L Heart Rate [ 72 Brachial] Respiratory 16 Rate Blood Pressure 107/64 [Right Brachial artery] O2 Saturation 97 If not protocol 3 : Oxygen Flow, liters/minute Oxygen O2 Source Nasal cannula I&O (Last 24 Hrs): Intake and Output Totals x24h 07/13/23 07/14/23 07/15/23 23:59 23:59 23:59 Intake Total 1668 1270.000 460 Output Total 251 310 225 Balance 1417 960.000 235 General: Alert, Cooperative, No acute distress HEENT: Other (slight clear scleral edema, left eyelid appears slightly swollen) Neck: Other (Head is in a fixed position of left lateral neck flexion with chin touching the chest) Neuro: Alert, Other (Patient oriented but more somnolent and less talkative today. She can answer yes/no questions and asked where her was.) Cardiovascular: Regular rate, Other (regular rhythm. No murmurs, rubs or gallops) Respiratory: No respiratory distress, Breath sounds nml Abdomen: Normal bowel sounds Extremities: Other (edema of bilateral lower legs but improved slightly from yesterday. bilateral hands and fingers appear edematous. pedal pulses not palpated on the feet but feet appear pink and warm with improved blood flow. bilateral hands appear edematious.) Comments/Notes: Right foot and ankle bandaged during exam. Bilateral lower legs appear warm and erythematous with significant scaling and scattered eschars. There is a large d raining bullae on the right posterior calf. Onychomycosis seen on all toenails. - Results Results: Laboratory Results WBC 9.1 x10^3/uL (4.8-10.8) 07/15/23 05:06 RBC 4.00 10^6/uL (4.20-5.40) L 07/15/23 05:06 Hgb 12.3 g/dL (12.0-16.0) 07/15/23 05:06 Hct 41.9 % (37.0-47.0) 07/15/23 05:06 MCV 104.8 fL (81.0-99.0) H 07/15/23 05:06 MCH 30.8 pg (27.0-31.0) 07/15/23 05:06 MCHC 29.4 g/dL (32.0-36.0) L 07/15/23 05:06 RDW 16.2 % (12.0-15.0) H 07/15/23 05:06 Plt Count 155 10^3/uL (130-450) 07/15/23 05:06 MPV 10.4 fL (7.9-10.8) 07/15/23 05:06 Neut # (Auto) Not Reportable 07/15/23 05:06 Lymph # (Auto) Not Reportable 07/15/23 05:06 [place] # (Auto) Not Reportable 07/15/23 05:06 Eos # (Auto) Not Reportable 07/15/23 05:06 Baso # (Auto) Not Reportable 07/15/23 05:06 Absolute Nucleated RBC Not Reportable 07/15/23 05:06 Total Counted 100 07/15/23 05:06 Band Neuts % (Manual) 3 % (0-10) 07/15/23 05:06 Abnorm Lymph % (Manual) 0 % 07/15/23 05:06 Metamyelocytes % 2 % (-0) H 07/15/23 05:06 Myelocytes % 2 % (-0) H 07/15/23 05:06 Nucleated RBC % Not Reportable 07/15/23 05:06 Neutrophils # (Manual) 7.6 10^3/uL (1.5-6.6) H 07/15/23 05:06 Lymphocytes # (Manual) 0.7 10^3/uL (1.5-3.5) L 07/15/23 05:06 Monocytes # (Manual) 0.5 10^3/uL (0.0-1.0) 07/15/23 05:06 Eosinophils # (Manual) 0.0 10^3/uL (0-0.7) 07/15/23 05:06 Basophils # (Manual) 0.0 10^3/uL (0-0.1) 07/15/23 05:06 Differential Comment MANUAL DIFFERENTIAL 07/15/23 05:06 Platelet Estimate NORMAL (130-450,000) (NORMAL) 07/15/23 05:06 RBC Morph Micro Appear NORMAL APPEARANCE (NORMAL) 07/15/23 05:06 VBG pH 7.421 (7.31-7.41) H 07/12/23 13:05 VBG pCO2 37.1 mmHg (41-51) L 07/12/23 13:05 VBG pO2 93.9 mmHg (25-47) H 07/12/23 13:05 VBG HCO3 23.6 mmol/L (23-28) 07/12/23 13:05 VBG Total CO2 24.7 mmol/L (24-29) 07/12/23 13:05 VBG O2 Saturation 97.4 % (60-80) H 07/12/23 13:05 VBG Base Excess -0.4 mmol/L (-2 - +2) 07/12/23 13:05 Sodium 145 mmol/L (135-145) 07/15/23 05:06 Potassium 5.1 mmol/L (3.5-4.5) H 07/15/23 05:06 Chloride 109 mmol/L (101-111) 07/15/23 05:06 Carbon Dioxide 34 mmol/L (21-32) H 07/15/23 05:06 Anion Gap 2.0 (6-13) L 07/15/23 05:06 BUN 56 mg/dL (6-20) H 07/15/23 05:06 Creatinine 0.8 mg/dL (0.6-1.3) 07/15/23 05:06 Estimated GFR (MDRD) 70 (>89) L 07/15/23 05:06 Glucose 95 mg/dL (74-104) 07/15/23 05:06 Lactic Acid 2.3 mmol/L (0.5-2.2) H 07/12/23 13:05 Calcium 8.7 mg/dL (8.5-10.3) 07/15/23 05:06 Phosphorus 2.2 mg/dL (2.5-5.0) L 07/12/23 13:05 Magnesium 2.5 mg/dL (1.7-2.3) H 07/12/23 13:05 Total Bilirubin 0.3 mg/dL (0.2-1.0) 07/14/23 05:20 AST 20 IU/L (10-42) 07/14/23 05:20 ALT 11 IU/L (10-60) 07/14/23 05:20 Alkaline Phosphatase 154 IU/L (42-121) H 07/14/23 05:20 Lactate Dehydrogenase 182 IU/L (140-271) 07/15/23 05:06 Total Creatine Kinase 29 IU/L (30-223) L 07/14/23 05:20 Troponin I High Sens 6.3 ng/L (2.3-14.8) 07/12/23 13:05 Total Protein 5.4 g/dL (6.4-8.9) L 07/14/23 05:20 Albumin 2.6 g/dL (3.2-5.5) L 07/14/23 05:20 Globulin 2.8 g/dL (2.1-4.2) 07/14/23 05:20 Albumin/Globulin Ratio 0.9 (1.0-2.2) L 07/14/23 05:20 Vitamin B12 1475 pg/mL (180-914) H 07/13/23 08:47 Vitamin D 25-Hydroxy 41.7 ng/mL (30.0-100.0) 07/14/23 12:48 Folate 5.9 ng/mL (5.90 - >24.8) 07/13/23 08:47 TSH 1.63 uIU/mL (0.34-5.60) 07/15/23 05:06 Urine Color YELLOW 07/12/23 13:37 Urine Clarity CLEAR (CLEAR) 07/12/23 13:37 Urine pH 6.0 PH (5.0-7.5) 07/12/23 13:37 Ur Specific [place] 1.015 (1.002-1.030) 07/12/23 13:37 Urine Protein TRACE mg/dL (NEGATIVE) 07/12/23 13:37 Urine Glucose (UA) NEGATIVE mg/dL (NEGATIVE) 07/12/23 13:37 Urine Ketones NEGATIVE mg/dL (NEGATIVE) 07/12/23 13:37 Urine Occult Blood NEGATIVE (NEGATIVE) 07/12/23 13:37 Urine Nitrite NEGATIVE (NEGATIVE) 07/12/23 13:37 Urine Bilirubin NEGATIVE (NEGATIVE) 07/12/23 13:37 Urine Urobilinogen 0.2 (NORMAL) E.U./dL (NORMAL) 07/12/23 13:37 Ur Leukocyte Esterase NEGATIVE (NEGATIVE) 07/12/23 13:37 Ur Microscopic Review NOT INDICATED 07/12/23 13:37 Urine Culture Comments NOT INDICATED 07/12/23 13:37 Nasal Adenovirus (PCR) NOT DETECTED 07/12/23 12:48 Nasal B. parapertussis DNA (PCR) NOT DETECTED 07/12/23 12:48 Nasal Coronavir 229E PCR NOT DETECTED 07/12/23 12:48 Nasal Coronavir HKU1 PCR NOT DETECTED 07/12/23 12:48 Nasal Coronavir NL63 PCR NOT DETECTED 07/12/23 12:48 Nasal Coronavir OC43 PCR NOT DETECTED 07/12/23 12:48 Nasal Enterovir/Rhinovir PCR NOT DETECTED 07/12/23 12:48 Nasal Influenza B PCR NOT DETECTED 07/12/23 12:48 Nasal Influenza A PCR NOT DETECTED 07/12/23 12:48 Nasal Parainfluen 1 PCR NOT DETECTED 07/12/23 12:48 Nasal Parainfluen 2 PCR NOT DETECTED 07/12/23 12:48 Nasal Parainfluen 3 PCR NOT DETECTED 07/12/23 12:48 Nasal Parainfluen 4 PCR NOT DETECTED 07/12/23 12:48 Nasal RSV (PCR) NOT DETECTED 07/12/23 12:48 Nasal B.pertussis DNA PCR NOT DETECTED 07/12/23 12:48 Nasal C.pneumoniae (PCR) NOT DETECTED 07/12/23 12:48 Jourdan Human Metapneumo PCR NOT DETECTED 07/12/23 12:48 Nasal M.pneumoniae (PCR) NOT DETECTED 07/12/23 12:48 Nasal SARS-CoV-2 (PCR) NOT DETECTED 07/12/23 12:48 Urine Opiates Screen NEGATIVE (NEGATIVE) 07/12/23 13:37 Ur Buprenorphine Scrn NEGATIVE (NEGATIVE) 07/12/23 13:37 Ur Oxycodone Screen NEGATIVE (NEGATIVE) 07/12/23 13:37 Urine Methadone Screen NEGATIVE (NEGATIVE) 07/12/23 13:37 Ur Barbiturates Screen NEGATIVE (NEGATIVE) 07/12/23 13:37 Ur Tricyclics Screen NEGATIVE (NEGATIVE) 07/12/23 13:37 Ur Phencyclidine Scrn NEGATIVE (NEGATIVE) 07/12/23 13:37 Ur Amphetamine Screen NEGATIVE (NEGATIVE) 07/12/23 13:37 U Methamphetamines Scrn NEGATIVE (NEGATIVE) 07/12/23 13:37 U Benzodiazepines Scrn NEGATIVE (NEGATIVE) 07/12/23 13:37 Urine Cocaine Screen NEGATIVE (NEGATIVE) 07/12/23 13:37 U Cannabinoids Screen NEGATIVE (NEGATIVE) 07/12/23 13:37 Ur Drug Screen Comment CUTOFF CONC BELOW: 07/12/23 13:37 Ethyl Alcohol < 10.0 mg/dL 07/12/23 13:05 Sepsis Event Note (H) - Evaluation Current Stage of Sepsis: Sepsis Possible source of Sepsis: positive: Skin/soft tissue - Sepsis Criteria Sepsis Criteria: Respiratory: Increasing oxygen requirements Current Medications - Current Medications Current Medications: Active Medications Acetaminophen (Acetaminophen 325 Mg Tablet) 650 mg PO Q4HR PRN PRN Reason: Pain 1 to 4, or Fever Last Admin: 07/14/23 14:29 Dose: 650 mg Cholecalciferol (Cholecalciferol 25 Mcg Tablet) 50 mcg PO DAILY [facility] Last Admin: 07/15/23 08:08 Dose: 50 mcg Enoxaparin Sodium (Enoxaparin 40 Mg/0.4 Ml Syringe) 40 mg SUBQ DAILY [facility] Last Admin: 07/15/23 08:07 Dose: 40 mg Ceftriaxone Sodium 2 gm/ (Sodium Chloride) 100 mls @ 200 mls/hr IV DAILY [facility]ERRIE Last Infusion: 07/15/23 08:40 Dose: Infused Azithromycin 500 mg/ Sodium (Chloride) 250 mls @ 250 mls/hr IV DAILY [facility]RIE Last Infusion: 07/15/23 10:30 Dose: Infused Ondansetron HCl (Ondansetron Odt 4 Mg Tablet) 4 mg TL Q6HR PRN PRN Reason: Nausea / Vomiting Ondansetron HCl (Ondansetron 4 Mg/2 Ml Vial) 4 mg IVP Q6HR PRN PRN Reason: Nausea / Vomiting Oxycodone HCl (Oxycodone 5 Mg Tablet) 5 mg PO Q4HR PRN PRN Reason: Pain 5 to 7 Multivit/Folic Acid/Iron ( Vitamin Tablet) 1 tab PO DAILYWM [facility] Last Admin: 07/15/23 08:08 Dose: 1 tab Sodium Chloride (Sodium Chloride Flush 0.9% 10 Ml Syringe) 10 ml IVP PRN PRN PRN Reason: NEEDED PER PROVIDER ORDERS Last Admin: 07/12/23 20:08 Dose: 10 ml Sodium Chloride (Sodium Chloride Flush 0.9% 10 Ml Syringe) 10 ml IVP 0100,0900,1700 [facility] Last Admin: 07/15/23 08:08 Dose: Not Given No Known Home Medications 07/13/23
[2023-07-16 05:41] LABS: BASOPHILS % (AUTO) 0.6 %; EOSINOPHILS % (AUTO) 1.6 %; HCT - HEMATOCRIT 41.2 % (37.0-47.0); LYMPHOCYTES % (AUTO) 3.8 %; MEAN CORPUSCULAR HEMOGLOBIN 30.6 pg (27.0-31.0); MEAN CORPUSCULAR HGB CONC 29.1 g/dL (32.0-36.0); MEAN CORPUSCULAR VOLUME 105.1 fL (81.0-99.0); MEAN PLATELET VOLUME 10.3 fL (7.9-10.8); MONOCYTES % (AUTO) 5.1 %; NEUTROPHILS % (AUTO) 77.5 %; PLT - PLATELET COUNT 147 10^3/uL (130-450); RED BLOOD COUNT 3.92 10^6/uL (4.20-5.40); RED CELL DISTRIBUTION WIDTH 16.1 % (12.0-15.0); WHITE BLOOD COUNT 8.4 x10^3/uL (4.8-10.8)
[2023-07-16 05:44] LABS: ABNORMAL LYMPHS % (MANUAL) 0 %; BAND NEUTROPHILS % (MANUAL) 0 %
[2023-07-16 06:10] LABS: CALCIUM 8.8 mg/dL (8.5-10.3); CREATININE 0.5 mg/dL (0.6-1.3); POTASSIUM 5.2 mmol/L (3.5-4.5)
[2023-07-16 06:49] LABS: LYMPHOCYTES # (MANUAL) 0.8 10^3/uL (1.5-3.5); LYMPHOCYTES % (MANUAL) 7 %; MONOCYTES # (MANUAL) 0.8 10^3/uL (0.0-1.0); NEUTROPHILS # (MANUAL) 6.9 10^3/uL (1.5-6.6); REACTIVE LYMPHS % (MANUAL) 2 %
[2023-07-16 06:50] LABS: DIFFERENTIAL COMMENT MANUAL DIFFERENTIAL; PLATELET ESTIMATE, MANUAL NORMAL (130-450,000) (NORMAL); PLATELET MORPHOLOGY NORMAL APPEARANCE (NORMAL); RBC MORPHOLOGY (MULTIPLE) NORMAL APPEARANCE (NORMAL)
[2023-07-16] MEDS: DEXTROSE 5% 1,000 ML IV SCH (08:19)
[2023-07-16] MEDS: polyethylene glycoL 3350 17 GM PACKET PO SCH (08:19)
[2023-07-16] MEDS: SENNA 8.6 MG TABLET PO SCH (08:19)
[2023-07-16] MEDS: DOCUSATE SODIUM 250 MG CAPSULE PO SCH (08:19)
[2023-07-16] MEDS ORDERED: traZODone 50 MG TABLET PO PRN (23:52)
[2023-07-17 05:34] LABS: BASOPHILS % (AUTO) 0.7 %; EOSINOPHILS % (AUTO) 1.8 %; HCT - HEMATOCRIT 41.1 % (37.0-47.0); MEAN CORPUSCULAR HEMOGLOBIN 30.8 pg (27.0-31.0); MEAN CORPUSCULAR HGB CONC 29.2 g/dL (32.0-36.0); MEAN CORPUSCULAR VOLUME 105.7 fL (81.0-99.0); MEAN PLATELET VOLUME 10.1 fL (7.9-10.8); MONOCYTES % (AUTO) 5.6 %; NEUTROPHILS % (AUTO) 72.1 %; PLT - PLATELET COUNT 157 10^3/uL (130-450); RED BLOOD COUNT 3.89 10^6/uL (4.20-5.40); RED CELL DISTRIBUTION WIDTH 15.9 % (12.0-15.0); WHITE BLOOD COUNT 8.8 x10^3/uL (4.8-10.8)
[2023-07-17 05:50] LABS: ABNORMAL LYMPHS % (MANUAL) 0 %; BAND NEUTROPHILS % (MANUAL) 0 %
[2023-07-17 06:39] LABS: EOSINOPHILS # (MANUAL) 0.1 10^3/uL (0-0.7); LYMPHOCYTES # (MANUAL) 0.4 10^3/uL (1.5-3.5); LYMPHOCYTES % (MANUAL) 2 %; MONOCYTES # (MANUAL) 1.2 10^3/uL (0.0-1.0); REACTIVE LYMPHS % (MANUAL) 3 %
[2023-07-17 06:40] LABS: DIFFERENTIAL COMMENT MANUAL DIFFERENTIAL; PLATELET ESTIMATE, MANUAL NORMAL (130-450,000) (NORMAL); PLATELET MORPHOLOGY RARE GIANT PLATELETS (NORMAL)
--- NOTE | 2023-07-17 10:34 | Discharge Plan ---
"Discharge Plan for SNF / [facility] - Discharge Plan And Transition Orders Problem Reviewed?: Yes Disposition: 03 SNF DC/Xfer Condition: Fair Allergies and Adverse Reactions: Allergies Allergy/AdvReac Type Severity Reaction Status Date / Time Penicillins Allergy Rash Verified 07/12/23 12:38 Health Concerns: 78-year-old [place] female who has not seen a physician since the of her son 35 years ago. Has OCD and anxiety. She had a fall approximately a decade ago and since that time has preferred not to ambulate. Has gradually developed severe kyphoscoliosis so that her head constantly tilts to the left and lays on her shoulder. She sleeps in a chair and has venous stasis dermatitis that was quite severe with cellulitis. Also had atrial Fibrillation pneumonia on admission. She was brought in by because she was less responsive, and clearly failing. Up until now, she really has refused all medical care and threatened to kill herself when the ambulance came to the door to pick her up. That was a way she kept her for calling for help but this time she was so weak she agreed to come in. Since here she has gradually responded to IV antibiotics for her cellulitis. Thick scales on edematous, red legs have improved with elephant skin wrinkling now present. The scales on her legs have almost all gone. Still has a small cocyx redness from admit. For some socks that been on her legs for over a year. On the right leg the elastic in the sock had grown into the skin and general surgery gave her local anesthetic and remove the string tourniquet around ankle and toes. We have put her in the shower and scrubbed her since she had not bathed in several years. Venous stasis redness has resolved. Oxygen level is now normal and she is no longer hypoxic for treatment of her pneumonia. Atrial fib converted to NSR on its own. She will need aggressive nutrition. When she leaves the SNF for rehab, she really needs to be seen by PT and OT with special orthotics to support her trunk, neck and her body posture. She is awake, alert and oriented. Able to participate in decision-making but highly anxious. Everything has to be communicated to her slowly and clearly. She will become repetitive and not want to do what you ask her to do but if you repeated enough a letter slowly get used to the idea, she will cooperate. Caitlyn camara. Plan of Treatment: I am going to be starting citalopram at 10 mg a day. Would suggest reassessing her in 4 weeks in the outpatient setting and then increasing to 20 mg a day. She really must establish yourself with a primary care provider and get follow- up for this. So far I have not needed to use benzodiazepines unless it was associated with a procedure such as removing that string tourniquet around her ankle. Have to be seen by dentist while at the care home. If her makes an appointment she needs to be transferred. Podiatry needs to see her for onychomycosis. She is very resistant to taking too many pills at the same time. She is very resistant to taking any pills at any time. So I am going to start her on the Celexa first. See how she tolerates it. You might want to consider adding fluconazole at a low dose for the indefinite future which she sees podiatry. But I would only do that after we know that she is tolerating Celexa. Physical rehabilitation to allow her to be able to go from supine to sitting. Sitting to standing. Transfer to a wheelchair. Wound Care below. Care Goals: To return home under the care of her . But to be ambulatory enough that she is not wheelchair confined and can go to a hospital bed. Assessment: Patient is alert, oriented to person place and time. Reluctant about going to a care home but has been talking to her by her and son. - SNF / [facility] Transition Orders Admit to (Facility): [facility] Under the care of (Name): [facility] providers. She has no PCP and needs to get 1 Discharge Diagnosis: 1. Sepsis 2. Cellulitis 3. Venous stasis dermatitis 4. Atrial fibrillation, intermitent 5. Kyphoscoliosis deformity of the spine 6. Prerenal azotemia 7. Severe protein calorie malnutrition 8. Esophageal stricture due to external compression of aorta 9. Atelectasis/pneumonia left lung with hypoxia, resolved Medicare Certification Statement: I certify that [facility] al[facility] care is medically necessary on a continuing basis for any of the conditions for which she/he is receiving care during hospitalization. Notify PCP of admission and forward orders to primary provider for signature. Weight on admission and: Weekly Other Notification Orders: Call PCP immediately if patient develops dyspnea, chest pain/tightness or edema. House Bowel Program: Yes Additional Bowel Program Orders: If no BM after 2 days, nurse may give M.O.M. 30ml PO PRN and/or ducolax Supp 1 HI and/or LATESHA 250mg P.O., and/or senna 1-2 tabs PO. On day 3 nurse may give repeat above order until residents constipation is resolved. Annual Influenza Vaccine (between Dec 02 and July 01): Yes Two-step PPD per [facility] [phone] or approved exception documents: Yes Treatments & Other Orders: Keep her leg blisters clean and wash. Wash daily, then dry gently. Dry over the border if you have to. Cover will Telfa to the blisters on the calves, ankles. Then wrap with Kerlix. Put Kerlix or cotton between the toes. Oxygen Orders: Keep 02 sats >92%. Currently on room air. 98%RA. Medication Orders: PLEASE REFER TO THE DISCHARGE MEDICATION LIST. Insulin Orders?: No - Medications New Prescriptions: levoFLOXacin [Levaquin] 250 mg PO QD #2 tablet - Diet Type: Geriatric Texture: Puree May have monthly special meal: Yes - Therapies | Activity Therapy: Evaluation | Treat if indicated: Speech, PT, OT Rehabilitation Potential: Return to independent living Activity: Activity as Tolerated Weight Bearing: Full Weight Assistance Devices: Wheelchair, Walker"
[2023-07-17 12:30] VITALS: BP 136/82
--- NOTE | 2023-07-17 14:05 | DISCHARGE SUMMARY ---
Discharge Summary Admit Date: 07/12/23 Discharge Date: 07/17/23 Discharging Provider: Jing Cardona MD Primary Care Provider: No PCP yet Code Status: Do Not Attempt Resuscitation Condition at Discharge: Fair Discharge Disposition: SNF DC/Xfer - DIAGNOSES Discharge Diagnoses with Status of Each Condition: 1 sepsis 2. Cellulitis of legs 3. Venous stasis of legs 4. Pneumonia 5. Mild respiratory failure with hypoxia due to pneumonia 6. New onset atrial fibrillation, resolved 7. Kyphosis and scoliosis deformity of the spine, severe 8. Prerenal azotemia 9. Severe protein calorie malnutrition 10. Esophageal stricture on CT 11. Obsessive-compulsive disorder 12. String touniquet of left ankle and left toes - HPI History of Present Illness: Mrs. Rosado is a 77-year-old woman who presented to the ED today because her was concerned about a rash on her legs. Patient was very resistant to come to the hospital due to fear of doctors and threatened to killherself when EMS was summoned but she was able to be convinced to come to the hospital. She presented in the ED today with sepsis, cellulitis of bilateral lower legs (worse on the R), and severe thoracic kyphosis. Mrs. Rosado has not seen a medical provider in over 35 years since the of her only child due to her fear of doctors. She is here today with her who helps contribute to her medical history. She reports that her decline first started with changes to her spine 50 years ago that worsened 7 years ago with a fall and neck injury that was never evaluated or treated. She states that she was last able to lift her head 1 year ago and she was last able to walk 6 months ago with a walker but since she has been bound to a wheelchair. Her reports that she has had a progressive decline in mobility. She was still able to transfer to a commode up until about 2 weeks ago when she could not even do that anymore. He reports hasn't bathed in years and has been using wipes. Barriers to proper bathing i nclude that she is bound to wheelchair for movement and remains on the upper level of her home where there is not a bathtub or shower. Her states that she wore the same pair of socks for almost a year and when she finally removed them 3 months ago she noticed that the legs appeared infected at that time. She states that urine would get on her legs and make the infection worse. Her applied urea cream to the lower legs about a week ago and felt that it improved some but she only allowed him to do this once. Mrs. Rosado does not take and medications but reports that she takes a daily vitamin D, vitamin C, and two supplements she heard about on the radio called "relief factor" and "V- Activ". Her diet is very minimal and she only eats a few "nibbles" of things throughout the day. She occasionally reports she will finish a TV dinner which is a large meal for her. 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 No masses or hemorrhage or infarct seen. Cervical spine CT was suboptimal study secondary to inability to obtain in normal position but no obvious fracture or dislocation Abdomen/pelvis CT with acceptable liver, gallbladder, spleen, pancreas, adrenals. Kidneys did not have hydronephrosis. No cystic lesions. She had multiple bilateral focal areas of renal cortical thickening. Her small bowel, stomach, peritoneum, without pathology or free fluid. No aneurysm. Pelvis was unremarkable. No abnormal wall thickening of the bladder. The bones were impressive for thoracolumbar dextrocurvature without fracture, lytic or blastic lesions. No hernias. Chest CT with narrowing of the distal esophagus potentially representing a presence of benign stricture or mass which results in significant dilation of the more proximal esophagus. Severe dextrocurvature of the thoracic spine. Patchy left lower lobe atelectasis. Cardiomegaly. I had radiology and surgery relook at the CT since she may need an EGD. They feel that it is the aorta and the curvature of her spine that is externally compressing her esophagus. Since the patient did not have dysphagia or emesis and was relatively asymptomatic they did not feel an EGD was required Lumbar spine x-ray and thoracic spine x-ray show pronounced convex leftward curvature of the lumbosacral junction but no compression fracture. And then she had pronounced convex rightward scoliosis with the patient trunk tilting toward the left arm thorax. Retrocardiac pneumonia seen Cardiogram done on the day of discharge for cardiomegaly and atrial fibrillation. It has been done, but preliminary or final report are not on the chart yet. Hopefully the physician from the retirement will be able to get that review.. - HOSPITAL COURSE Hospital Course: 78-year-old [place] female who has not seen a physician since the of her son 35 years ago. Has OCD and anxiety. She had a fall approximately a decade ago and since that time has preferred not to ambulate. Has gradually developed severe kyphoscoliosis so that her head constantly tilts to the left and lays on her shoulder. She sleeps in a chair and has venous stasis dermatitis that was quite severe with cellulitis. Also had atrial Fibrillation pneumonia on admission. She was brought in by because she was less responsive, and clearly failing. Up until now, she really has refused all medical care and threatened to kill herself when the ambulance came to the door to pick her up. That was a way she kept her for calling for help but this time she was so weak she agreed to come in. Since here she has gradually responded to IV antibiotics for her cellulitis. Thick scales on edematous, red legs have improved with elephant skin wrinkling now present. The scales on her legs have almost all gone. Still has a small cocyx redness from admit. For some socks that been on her legs for over a year. On the right leg the elastic in the sock had grown into the skin and general surgery gave her local anesthetic and remove the string tourniquet around ankle and toes. We have put her in the shower and scrubbed her since she had not bathed in several years. Venous stasis redness has resolved. Oxygen level is now normal and she is no longer hypoxic for treatment of her pneumonia. Atrial fib converted to NSR on its own. She will need aggressive nutrition. When she leaves the SNF for rehab, she really needs to be seen by PT and OT with special orthotics to support her trunk, neck and her body posture. She is awake, alert and oriented. Able to participate in decision-making but highly anxious. Everything has to be communicated to her slowly and clearly. She will become repetitive and not want to do what you ask her to do but if you repeated enough a letter slowly get used to the idea, she will cooperate. Caitlyn camara. She initially wanted to be a full code and filled out a POLST form stating that she wanted everything done. She had a waxing and waning emotional response to being in the hospital. It was terrifying. But as she started feeling better and thinking about what she wanted done or not done, she, her , and I rediscussed her POLST form. She has realized that she does not want any chest compressions or intubation. As such we did another POLST form and she is DO NOT RESUSCITATE Plan of Treatment: [facility] I am going to be starting citalopram at 10 mg a day. Would suggest reassessing her in 4 weeks in the outpatient setting and then increasing to 20 mg a day. She really must establish yourself with a primary care provider and get follow-up for this. So far I have not needed to use benzodiazepines unless it was associated with a procedure such as removing that string tourniquet around her ankle. Have to be seen by dentist while at the retirement. If her makes an appointment she needs to be transferred. Podiatry needs to see her for onychomycosis. She is very resistant to taking too many pills at the same time. She is very resistant to taking any pills at any time. So I am going to start her on the Celexa first. See how she tolerates it. You might want to consider adding fluconazole at a low dose for the indefinite future which she sees podiatry. But I would only do that after we know that she is tolerating Celexa. Physical rehabilitation to allow her to be able to go from supine to sitting. Sitting to standing. Transfer to a wheelchair. Wound Care Cleaned the skin on a daily basis with soap and water. Carefully drying it. Applying a Telfa pad. Wrapping with Kerlix. Care Goals: To return home under the care of her . But to be ambulatory enough that she is not wheelchair confined and can go to a hospital bed. Exam: Patient is alert, oriented to person place and time. Reluctant about going to a retirement but has been talking to her by her and son.Temperature is 36.8. Heart rate 75 and she is in sinus rhythm. Blood pressure 136/82. Respirations 18 and she is 98% on room air. She is 5 feet 4 inches tall, 45.4 kg. This tiny [place] female is very difficult to look in the face because the way her head lays on her left shoulder. And the fact that she has kyphoscoliosis of Panzer in the forward direction. Right leg is particularly outwardly splayed. Lungs have diminished breath sounds at the bases but are clear. Occasional crackles that I think are atelectasis and she needs to be encouraged to do deep breathing. Irregular rate and rhythm with systolic ejection murmur. Echo was done this morning and results are pending. Those should be reviewed by primary care provider or the retirement physician. Abdomen is soft, nontender with normal bowel sounds. She is eating about 25% of her food sometimes 50% and prefers a pured diet. Last bowel movement was today before she left. She is incontinent of urine and uses a pure wick catheter. Legs are shrunken skin with wrinkles from all of the edema that is gone away. Still a little bit of scaling of the skin's. The redness in the heat is gone. She has lost the skin from a bolus stretching on the calves on both legs. She is alert, oriented to person place and time. She is still decisional but needs a lot of help getting through her anxiety. It is an 30 minutes was spent coordinating discharge This document was made in part using voice recognition software. While efforts are made to proofread this document, sound alike and grammatical errors may occur. - ALLERGIES Allergies/Adverse Reactions: Allergies Allergy/AdvReac Type Severity Reaction Status Date / Time Penicillins Allergy Rash Verified 07/12/23 12:38 - MEDICATIONS Home Medications: Ambulatory Orders Medication Instructions Recorded Confirmed Acetaminophen [Tylenol] 650 mg PO Q4HR PRN tab 07/17/23 Cholecalciferol [Vitamin D3] 50 mcg PO DAILY tab 07/17/23 Citalopram [CeleXA] 10 mg PO DAILY #30 tablet 07/17/23 Docusate Sodium 250Mg Capsule 250 - 500 mg PO DAILY cap 07/17/23 [Colace 250Mg Capsule] levoFLOXacin [Levaquin] 250 mg PO QD #2 tablet 07/17/23 traZODone [Desyrel] 25 mg PO QPM PRN tab 07/17/23 - LABS Result Diagrams: 07/17/23 05:15 07/16/23 05:30 - SEPSIS Current Stage of Sepsis: Sepsis Possible source of Sepsis: Skin/soft tissue Sepsis Criteria: Respiratory: Increasing oxygen requirements
--- NOTE | 2023-07-17 14:18 | PROVIDER PROGRESS NOTE ---
Progress Note July 16, 2023 1 PM She keeps on asking why the nurses are rotating her [id number]. I have carefully explained to her it has to do with preventing ulcers from pressure. She already has a small wound on the coccyx. We do not want her to get bigger or larger. Yesterday she asked a couple of times "am I dying". I asked how she felt about that today and she says that she feels better and she does not feel like she is dying. A lot of it had to do with severe, and just overall myalgias and arthralgias. She is now received several days of IV antibiotics, and the leg edema has almost completely resolved and she is just left with scaling skin. The redness of her legs has resolved. I was worried about her oxygen levels because she had developed pneumonia and was requiring increased oxygen. Today she came down to 1 L. I told her that when she is off oxygen she can be transferred to the assisted. She does not have any questions for me today. She just asked if I could reposition her head. Exam: Temperature is 36. 6. Heart rate 86. Blood pressure 105/70. Respirations 18. 98% saturated with 1 L. A short statured elderly [place] female who looks older than stated age. 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 Her head is constantly resting on her left shoulder. She can raise her head momentarily to straighten up and then it takes too much effort and it goes back down again. Voice is low with hypophonia but intact with lucid speech patterns. No focal deficits. Lungs have diminished breath sounds at the bases and slight crackles. There is no tachypnea. Rhonchi. Wheezing or use of accessory muscles. She has a regular rate and rhythm. Yesterday I did an EKG to confirm that her atrial fibrillation has resolved and she is back in sinus rhythm. Abdomen is soft, nontender, normal bowel sounds. No rebound or guarding. The legs have substantially improved. No redness or pinkness of venous stasis. The edema has almost completely resolved and swollen red skin is now shrunken and elephant like. Still has a few dry skin scales on it. Onychomycosis of the toenails is still present. Right now we are using Telfa to protect her skin of her calves where she had sloughing of the blistering and scaling skin. Over the Telfa we are using Curlex. We were using Mepilex but it removed too much skin. Her toes are shrunken down nicely. The area of skin her right ankle where she had the string tourniquet is no longer swollen. The macerated skin over the Achilles has dried and looks to be healing. Lab: Sodium is 146 so I have resumed IV fluids. I have encouraged her to drink more. Potassium still mildly high at 5.2. BUN 41, creatinine 0.5 which should be improved from yesterday's 56 and 0.8. White cell count remains low. She is 8.8. She had normal white cell count starting on July 13 and was admitted with a high white cell count of 13.5. Hemoglobin was 14.9 on admission and after IV fluids and hydration she is 12.0 today. MCV is high at 105. Platelets 157. Blood cultures are negative Assessment/Plan - Problem List (1) Atelectasis of left lung Assessment/Plan: Conclusion/Plan: Patient was admitted with septic criteria. At that time we felt it was strictly to the cellulitis and redness of her legs and the string tourniquet eating going into her ankle. String tourniquet may have been there for months. The sepsis criteria has resolved and then she still continued to feel ill and had hypoxia. Diagnosed with atelectasis versus pneumonia. CT of the chest July 11 showed a patchy left lower lobe atelectasis. And a thoracic spine plain film done to establish how much her curvature was also showed left lower lobe retrocardiac pneumonia or atelectasis. She had a fever. Increasing oxygen demands. Started on empiric antibiotic therapy and she has slowly improved. Today is day 3 of 3 of azithromycin. She is day 3 of 5 of ceftriaxone. Will change to p.o. ceftriaxone right before she goes to the assisted. We had initially thought of discharging her on the with the fever, identified pneumonia, we canceled discharge. She has improved with her oxygen level to the point that she is down to 1 L. If she is on room air she can be discharged tomorrow. (2) Sepsis resolved Conclusion/Plan: Mrs. Rosado is a 78 year old female who presented to the ED on 07/11 with her due to chronic neck pain and rash of her bilateral lower legs. She has a fear of doctors and has not received healthcare in 35+ years. In the ED her EKG showed Atrial fibrillation. Labs demonstrated hypernatremia (sodium was 146) with moderate lactic acidosis (lactic acid was 2.3) and pre-renal azotemia (BUN was 71, Createnine was 0.8, GFR was 70). Extensive imaging did not show any acute findings but an esophageal dilation and compression due to severe kyphscoliosis was seen. She was diagnosed with Afib, protein-calorie malnutrition, cellulitis of bilateral lower legs and she fit septic criteria warranting her admission. Blood cultures were gathered and patient was started on 1g IV Cefazolin as well as IV fluids, enoxaparin for DVT prophylaxis, and tylenol for back pain. On the her cefazolin was changed to ceftriaxone and azithromycin since we were now treating pneumonia as well as cellulitis. She has done well with this drug regimen and her white cell count is staying normal. No further fevers. And oxygenation is improving. (3) Cellulitis resolved Conclusion/Plan: Mrs. Rosado recieved excisional biopsy to remove elastic sock fibers embedded in the skin and subcutaneous tissue above and around the ankle and around the base of the 3rd digit of the right lower extremity 07/14. She tolerated the procedure well. Edema had been decreasing as well as erythema and flakiness of bilateral legs. The large bullae on right posterior calf was dressed with mipilex I am asking nursing to change this to Telfa. When she they take off the Mepilex it peels off to my skin. And wrapped the Telfa with Kerlix. She has had tremendous improvement in her legs since admission (4) Afib Conclusion/Plan: A-fib seen on EKG in the ED on 07/11. Patients HR is at 72 bpm. Rhythm sounded regular on auscultation. Patient denies symptoms of chest pain or palpitations but admits to increased shortness of breath likely related to atelectasis . Patient is hesitant to medications due to distrust in the healthcare system. We will plan to have a discussion with Mrs. Rosado and her about starting anticoagulation treatment for her A-fib when she is discharged to a custodial facility. Echocardiogram is ordered for tomorrow before discharge. EKG in the , yesterday, she was back into sinus rhythm.At this time I will not be adding any medicines for rate control or anticoagulation. If she goes back into A-fib we would need to address that. (5) Kyphoscoliosis deformity of spine Conclusion/Plan: Mrs. Rosado presented to the ED on 07/11 complaining primarily of neck pain with her neck fixed in left lateral flexion with her chin touching her chest. CT imaging showed severe dextrocurvature of the thoracic and lumbar spine. Today she states that her back pain is stable with tylenol and she is laying comfortably in the hospital bed. The cause of her deformity is unknown at this time. Patient is only able to life her head slightly for 10 secconds before she has to rest it on her chest due to a combination of weakness and pain. Physical therapy session from yesterday revealed: Xray of the thoracic spine showed: No bony abnormality, but quality of study is very limited due to pronounced convex rightward scoliosis and patient tilt leftward. No significant degenerative changes. Xray of the lumbar spine showed: limited quality visualization due to pronounced convex leftward curvature and the lumbosacral junction. No definite compression fracture found. Degenerative disc disease at L5-S1 is moderately severe. We ordered a series of spinal X-rays to determine the level of curvature of her spine so that we can consider consulting outpatient orthopedics better understand the cause of her severe deformity and if there are any options for treatment. (6) Prerenal azotemia Conclusion/Plan: Mrs. Rosado was seen to have pre-renal Azotemia on labs in the ED on 07/11 (BUN was 71, Createnine was 0.8, GFR was 70) that was suspicious for dehydration. She was started on IV fluids in the ED and they were continued upon admission. For the past two days her GFR was trending downward and her createnine and potassium were trending upward despite adequate IV hydration and even potential fluid overload demonstrated by hand swelling and clear scleral edema. We felt that labs may have reflected the releasing of cellular media from both being in a laying position after many days in her wheelchair as well as release of pressure on her ankle following excisional biopsy. . Her labs are now trending in the right direction. We will consider re-starting IV fluids as needed as Mrs. Barrios oral intake has decreased over the past two days if she no longer appears fluid overloaded. We will continue to monitor labs and kidney function. (7) Severe protein-calorie malnutrition Conclusion/Plan: Mrs. Rosado appeared malnourished at her arrival to the ED. She has been able to eat some since her admission and denies feeling hungry. For the past two days she hasn't felt like eating much. Plan to continue to monitor her nutrition and have her speak with a grinder set up operator surface. I changed her from regular diet to pureed diet and she is tolerating that better. (8) Esophageal stricture Conclusion/Plan: Chest CT in the ED showed narrowing of the distal esophagus which "may pote ntially represent the presence of a benign stricture or mass resulting in significant dilation of the more proximal esophagus" per radiology report. Patient denies any dysphagia or reflux but does not eat large meals. Dr. Marks reviewed chest CT with radiologist and concluded that "The proximal esophagus is somewhat dilated because it courses around the aorta which is angulated due to her scoliosis and experiences some degree of external compression from this angulation. There is no intraluminal mass present. There is air in the stomach which indicates a patent esophageal lumen and this corresponds to her lack of clinical symptoms related to her swallowing". There is no further imaging indicated at this time. Patient is asymptomatic and eating well.
[2023-07-17 15:01] VITALS: O2SAT 95
== END 2023-07-17 14:35 | DRG 853 ==
LOC: EDBD → ED 12:36 → MS2 16:16
PROVIDERS: ADMIT Specialist; ATTEND Specialist
PROC: 0HCMXZZ Extirpation of Matter from Right Foot Skin, External Approach (ICD-10-PCS; principal; 2023-07-12)
PROC: 0JCQ0ZZ Extirpation of Matter from Right Foot Subcutaneous Tissue and Fascia, Open Approach (ICD-10-PCS; 2023-07-12)
DX: A41.9 Sepsis, unspecified organism (principal); E43 Unspecified severe protein-calorie malnutrition; J18.9 Pneumonia, unspecified organism; J96.91 Respiratory failure, unspecified with hypoxia; L03.115 Cellulitis of right lower limb; L03.116 Cellulitis of left lower limb; Z11.52 Encounter for screening for COVID-19; J98.11 Atelectasis; I87.8 Other specified disorders of veins; I48.91 Unspecified atrial fibrillation; M41.9 Scoliosis, unspecified; R79.89 Other specified abnormal findings of blood chemistry; K22.2 Esophageal obstruction; F42.9 Obsessive-compulsive disorder, unspecified; Z99.3 Dependence on wheelchair; Z59.19 Other inadequate housing; F41.9 Anxiety disorder, unspecified; Z66 Do not resuscitate; B35.1 Tinea unguium; S80.8 Other superficial injuries of lower leg; S90.444A External constriction, right lesser toe(s), initial encounter; W49.02XA String or thread causing external constriction, initial encounter; K02.9 Dental caries, unspecified; H53.8 Other visual disturbances; R20.0 Anesthesia of skin; G89.29 Other chronic pain; R32 Unspecified urinary incontinence; S40.022A Contusion of left upper arm, initial encounter; S40.021A Contusion of right upper arm, initial encounter; X58.XXXA Exposure to other specified factors, initial encounter
CPT/HCPCS: 36415; 51701; 70450; 71260; 72070; 72100; 72125; 74177; 80048; 80053; 80306; 81003; 82306; 82550; 82607; 82746; 82803; 83605; 83615; 83735; 84100; 84443; 84484; 85025; 87040; 87633; 93005; 93307; 96374; 97162; 97166; 97530; 99285; A9270; G0480; J1650; Q9967; 81001; 82077; 87086

== ENCOUNTER 2023-07-17 14:31 | Outpatient (CLI) | payer MEDICARE, OTHER | END 2023-07-17 14:32 | LOC: EMS 14:31 | PROVIDERS: ATTEND Specialist | DX: J18.9 Pneumonia, unspecified organism (principal); L03.90 Cellulitis, unspecified; M41.9 Scoliosis, unspecified; Z74.01 Bed confinement status | CPT/HCPCS: A0425; A0428 ==

== ENCOUNTER 2023-08-18 09:47 | Outpatient (CLI) | payer MEDICARE, OTHER ==
[2023-08-18 10:00] LABS: BASOPHILS % (AUTO) 0.8 %; BILIRUBIN,URINE NEGATIVE (NEGATIVE); EOSINOPHILS # (AUTO) 0.1 10^3/uL (0.0-0.7); EOSINOPHILS % (AUTO) 1.7 %; GLUCOSE, URINE (UA) NEGATIVE (NEGATIVE); HCT - HEMATOCRIT 40.9 % (37.0-47.0); HGB - HEMOGLOBIN 13.1 g/dL (12.0-16.0); KETONES,URINE (UA) NEGATIVE (NEGATIVE); LEUKOCYTE ESTERASE, URINE NEGATIVE (NEGATIVE); LYMPHOCYTES # (AUTO) 0.7 10^3/uL (1.5-3.5); MEAN CORPUSCULAR VOLUME 99.8 fL (81.0-99.0); MEAN PLATELET VOLUME 9.6 fL (7.9-10.8); MONOCYTES # (AUTO) 0.5 10^3/uL (0.0-1.0); MONOCYTES % (AUTO) 9.4 %; NEUTROPHILS # (AUTO) 3.8 10^3/uL (1.5-6.6); NEUTROPHILS % (AUTO) 73.1 %; NITRITE,URINE NEGATIVE (NEGATIVE); OCCULT BLOOD,URINE NEGATIVE (NEGATIVE); PLT - PLATELET COUNT 335 10^3/uL (130-450); PROTEIN,URINE NEGATIVE (NEGATIVE); RED CELL DISTRIBUTION WIDTH 14.2 % (12.0-15.0); UROBILINOGEN,URINE 0.2 (NORMAL) E.U./dL (NORMAL); WHITE BLOOD COUNT 5.2 x10^3/uL (4.8-10.8)
[2023-08-18 10:06] LABS: BACTERIA,URINE None Seen /HPF (None Seen); CLARITY,URINE CLEAR (CLEAR); RBC,URINE 0-5 /HPF (0-5); SQUAMOUS EPITHELIAL CELL,UR RARE Squamous (<= Few); WBC,URINE 0-3 /HPF (0-5)
== END 2023-08-18 09:48 | disposition home or self-care (01) ==
LOC: LAB.R 09:47
PROVIDERS: ATTEND Registered Nurse
DX: N18.9 Chronic kidney disease, unspecified (principal); R39.81 Functional urinary incontinence
CPT/HCPCS: 80053; 81001; 85025; 87086

== ENCOUNTER 2023-08-18 11:50 | Outpatient (CLI) | payer MEDICARE, OTHER ==
[2023-08-18 12:15] LABS: ALBUMIN 3.6 g/dL (3.2-5.5); ALBUMIN/GLOBULIN RATIO 1.5 (1.0-2.2); BILIRUBIN,TOTAL 0.6 mg/dL (0.2-1.0); CALCIUM 9.2 mg/dL (8.5-10.3); CREATININE 0.3 mg/dL (0.6-1.3); POTASSIUM 4.1 mmol/L (3.5-4.5)
== END 2023-08-18 11:51 | disposition home or self-care (01) ==
LOC: LAB.R 11:50
PROVIDERS: ATTEND Registered Nurse
DX: N18.9 Chronic kidney disease, unspecified (principal); R39.81 Functional urinary incontinence
CPT/HCPCS: 80053; 81001; 85025; 87086

== ENCOUNTER 2023-09-03 21:30 | Outpatient (CLI) | payer MEDICARE, OTHER | END 2023-09-03 23:59 | disposition short-term general hospital (02) | LOC: EMS 21:30 | DX: Z04.41 Encounter for examination and observation following alleged adult rape (principal); N93.9 Abnormal uterine and vaginal bleeding, unspecified | CPT/HCPCS: A0425; A0429 ==

== ENCOUNTER 2023-09-06 10:52 | Outpatient (CLI) | payer MEDICARE, OTHER | END 2023-09-06 23:59 | disposition critical access hospital (66) | LOC: EMS 10:52 | DX: Z00.8 Encounter for other general examination (principal); R41.0 Disorientation, unspecified; F22 Delusional disorders | CPT/HCPCS: A0425; A0429 ==

== ENCOUNTER 2023-09-06 11:41 | Emergency (ER) | payer MEDICARE, OTHER ==
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
[2023-09-06 12:02] VITALS: BP 130/93; O2SAT 96
[2023-09-06 12:19] LABS: BASOPHILS % (AUTO) 0.3 %; EOSINOPHILS # (AUTO) 0.1 10^3/uL (0.0-0.7); EOSINOPHILS % (AUTO) 0.6 %; HCT - HEMATOCRIT 46.3 % (37.0-47.0); HGB - HEMOGLOBIN 14.6 g/dL (12.0-16.0); LYMPHOCYTES # (AUTO) 0.6 10^3/uL (1.5-3.5); LYMPHOCYTES % (AUTO) 6.1 %; MEAN CORPUSCULAR HEMOGLOBIN 31.1 pg (27.0-31.0); MEAN CORPUSCULAR HGB CONC 31.5 g/dL (32.0-36.0); MEAN CORPUSCULAR VOLUME 98.7 fL (81.0-99.0); MEAN PLATELET VOLUME 10.5 fL (7.9-10.8); MONOCYTES # (AUTO) 0.6 10^3/uL (0.0-1.0); MONOCYTES % (AUTO) 5.6 %; NEUTROPHILS # (AUTO) 8.8 10^3/uL (1.5-6.6); PLT - PLATELET COUNT 278 10^3/uL (130-450); RED BLOOD COUNT 4.69 10^6/uL (4.20-5.40); RED CELL DISTRIBUTION WIDTH 13.3 % (12.0-15.0); WHITE BLOOD COUNT 10.1 x10^3/uL (4.8-10.8)
[2023-09-06 12:32] LABS: MAGNESIUM 1.9 mg/dL (1.7-2.3)
[2023-09-06 12:38] LABS: ACETAMINOPHEN 0.2 ug/mL; ALBUMIN 3.8 g/dL (3.2-5.5); ALKALINE PHOSPHATASE 77 IU/L (42-121); ALT ALANINE AMINOTRANSFERASE 10 IU/L (10-60); AST ASPARTATE AMINOTRANSFERASE 18 IU/L (10-42); BILIRUBIN,TOTAL 0.6 mg/dL (0.2-1.0); BUN - BLOOD UREA NITROGEN 40 mg/dL (6-20); CALCIUM 9.4 mg/dL (8.5-10.3); CARBON DIOXIDE - CO2 32 mmol/L (21-32); CHLORIDE 104 mmol/L (101-111); CK- CREATINE KINASE 153 IU/L (30-223); CREATININE 0.4 mg/dL (0.6-1.3); ETOH - ETHANOL < 10.0 mg/dL; GFR - MDRD 155 (>89); GLUCOSE 178 mg/dL (74-104); LIPASE 34 U/L (11-82); POTASSIUM 3.7 mmol/L (3.5-4.5); SODIUM 140 mmol/L (135-145); TOTAL PROTEIN 5.7 g/dL (6.4-8.9)
[2023-09-06 12:41] LABS: SALICYLATE < 1.5 mg/dL
[2023-09-06 12:50] LABS: THYROID STIMULATING HORMONE 1.54 uIU/mL (0.34-5.60)
== END 2023-09-06 17:25 ==
LOC: EDUNIT# → ED 11:41
DX: F99 Mental disorder, not otherwise specified (principal); F22 Delusional disorders
CPT/HCPCS: 36415; 80053; 80143; 82550; 82607; 82746; 83690; 83735; 84443; 85025; 99283; 99284; G0480; 80179; 82077

== ENCOUNTER 2023-09-06 17:17 | Outpatient (CLI) | payer MEDICARE, OTHER | END 2023-09-06 23:59 | disposition home or self-care (01) | LOC: EMS 17:17 | PROVIDERS: ATTEND Nurse Practitioner | DX: Z00.8 Encounter for other general examination (principal); Z74.01 Bed confinement status | CPT/HCPCS: A0425; A0428 ==

== ENCOUNTER 2023-09-12 13:21 | Emergency (ER) | payer MEDICARE, OTHER ==
--- NOTE | 2023-09-12 14:16 | ED Physician Documentation ---
PD HPI MHE - Stated complaint Stated Complaint: MHE - History obtained from History obtained from: Caregiver - Additional information Additional information: 78-year-old female with likely dementia, schizophrenia presents for increasing agitation. Patient has had outburst at her alf facility and she is here for mental health evaluation. Patient denies complaints, states that she is extremely unhappy to be here and that she is going to mary everyone for "1 billion dollars". She does not understand why she has been sent to the emergency department. She is alert to self and place, not situation. Review of Systems Unable to obtain: Dementia PD PAST MEDICAL HISTORY - Past Medical History Cardiovascular: Atrial fibrillation WEB INTERFACE DEVELOPER: Other (One vaginal 35 years ago) : Renal insuffiency (Patient was told 45 years ago that her kidney function was decreased) Psych: Obsessive compulsive disorder Musculoskeletal: Scoliosis, Chronic back pain Derm: Other - Past Surgical History Past Surgical History: No /WEB INTERFACE DEVELOPER: Other - Present Medications Home Medications: Ambulatory Orders Medication Instructions Recorded Confirmed Acetaminophen [Tylenol] 650 mg PO Q4HR PRN tab 07/17/23 09/12/23 Cholecalciferol [Vitamin D3] 50 mcg PO DAILY tab 07/17/23 09/12/23 Citalopram [CeleXA] 10 mg PO DAILY #30 tablet 07/17/23 09/12/23 Docusate Sodium 250Mg Capsule 250 - 500 mg PO DAILY cap 07/17/23 09/12/23 [Colace 250Mg Capsule] levoFLOXacin [Levaquin] 250 mg PO QD #2 tablet 07/17/23 09/12/23 traZODone [Desyrel] 25 mg PO QPM PRN tab 07/17/23 09/12/23 cephALEXin [Keflex] 500 mg PO BID #14 cap 09/12/23 - Allergies Allergies/Adverse Reactions: Allergies Allergy/AdvReac Type Severity Reaction Status Date / Time Penicillins Allergy Rash Verified 09/12/23 14:17 - Social History Does the pt smoke?: No Smoking Status: Never smoker Does the pt drink ETOH?: No Does the pt have substance abuse?: No - Immunizations Immunizations are current?: No - POLST Patient has POLST: No POLST Status: Full Code PD ED PE NORMAL - Vitals Vital signs reviewed: Yes - General General: No acute distress, Other (Debilitated, frail, underweight) - Cardiac Cardiac: RRR, Strong equal pulses - Respiratory Respiratory: No respiratory distress - Abdomen Abdomen: Soft, Non tender, Non distended - Derm Derm: Normal color, Warm and dry, No rash - Extremities Extremities: Other (Severe scoliosis) - Neuro Neuro: Other (AO x 2, able to move all extremities) - Psych Psych: Other (Uncooperative) Results - Vitals Vitals: Vital Signs - 24 hr 09/12/23 09/12/23 09/12/23 14:06 16:31 17:42 Temperature 36.2 C L 36.0 C L Heart Rate 93 83 80 Respiratory 14 18 18 Rate Blood Pressure 113/68 164/97 H 155/82 H O2 Saturation 94 98 98 Oxygen O2 Source Room air - Labs Labs: Laboratory Tests 09/12/23 09/12/23 09/12/23 14:24 14:24 14:55 WBC 10.0 RBC 4.42 Hgb 14.0 Hct 44.3 MCV 100.2 H MCH 31.7 H MCHC 31.6 L RDW 13.9 Plt Count 263 MPV 10.6 Neut # (Auto) 8.5 H Lymph # (Auto) 0.7 L [place] # (Auto) 0.6 Eos # (Auto) 0.2 Baso # (Auto) 0.0 Absolute Nucleated RBC 0.00 Nucleated RBC % 0.0 Sodium 139 Potassium 3.9 Chloride 106 Carbon Dioxide 31 Anion Gap 2.0 L BUN 67 H Creatinine 0.4 L Estimated GFR (MDRD) 155 Glucose 121 H Calcium 9.3 Total Bilirubin 0.4 AST 14 ALT 8 L Alkaline Phosphatase 68 Total Protein 5.9 L Albumin 3.5 Globulin 2.4 Albumin/Globulin Ratio 1.5 Urine Color YELLOW Urine Clarity HAZY Urine pH 6.0 Ur Specific [place] 1.015 Urine Protein NEGATIVE Urine Glucose (UA) NEGATIVE Urine Ketones NEGATIVE Urine Occult Blood NEGATIVE Urine Nitrite NEGATIVE Urine Bilirubin NEGATIVE Urine Urobilinogen 0.2 (NORMAL) Ur Leukocyte Esterase TRACE H Urine RBC 0-5 Urine WBC 11-25 H Ur Squamous Epith Cells NONE SEEN Urine Bacteria Moderate H Ur Microscopic Review INDICATED Urine Culture Comments INDICATED PD Medical Decision Making - ED course Complexity details: reviewed results, re-evaluated patient, considered differential, d/w patient ED course: Patient sent in for possible psychiatric evaluation with worsening temperament and outburst. Patient uncooperative with staff, stating that she is here against her will and she is going to mary all of us. animal care service worker evaluated patient and due to patient's care needs she would not be a candidate at any geriatric psychiatric facility. Blood work negative for acute findings. Urine positive for signs of infection. Patient given an IM dose of Rocephin and to be sent back to her alf facility with antibiotic prescription. Departure - Departure Disposition: Home, Self Care Clinical Impression: Urinary tract infection Condition: Stable Instructions: ED UTI Cystitis Female Prescriptions: cephALEXin [Keflex] 500 mg PO BID #14 cap Comments: Laboratory work today was normal. Urinalysis did indicate infection. An IM dose of Rocephin was administered in the emergency department and a prescription sent to [facility]. Forms: PCP List Discharge Date/Time: 09/12/23 17:44
[2023-09-12 14:29] LABS: BASOPHILS % (AUTO) 0.4 %; EOSINOPHILS # (AUTO) 0.2 10^3/uL (0.0-0.7); EOSINOPHILS % (AUTO) 1.6 %; HCT - HEMATOCRIT 44.3 % (37.0-47.0); LYMPHOCYTES # (AUTO) 0.7 10^3/uL (1.5-3.5); LYMPHOCYTES % (AUTO) 6.9 %; MEAN CORPUSCULAR HEMOGLOBIN 31.7 pg (27.0-31.0); MEAN CORPUSCULAR HGB CONC 31.6 g/dL (32.0-36.0); MEAN CORPUSCULAR VOLUME 100.2 fL (81.0-99.0); MEAN PLATELET VOLUME 10.6 fL (7.9-10.8); MONOCYTES # (AUTO) 0.6 10^3/uL (0.0-1.0); MONOCYTES % (AUTO) 5.8 %; NEUTROPHILS # (AUTO) 8.5 10^3/uL (1.5-6.6); NEUTROPHILS % (AUTO) 84.9 %; PLT - PLATELET COUNT 263 10^3/uL (130-450); RED BLOOD COUNT 4.42 10^6/uL (4.20-5.40); RED CELL DISTRIBUTION WIDTH 13.9 % (12.0-15.0)
[2023-09-12 14:42] LABS: ALBUMIN 3.5 g/dL (3.2-5.5); ALBUMIN/GLOBULIN RATIO 1.5 (1.0-2.2); BILIRUBIN,TOTAL 0.4 mg/dL (0.2-1.0); CALCIUM 9.3 mg/dL (8.5-10.3); CREATININE 0.4 mg/dL (0.6-1.3); POTASSIUM 3.9 mmol/L (3.5-4.5); TOTAL PROTEIN 5.9 g/dL (6.4-8.9)
[2023-09-12 15:08] LABS: BILIRUBIN,URINE NEGATIVE (NEGATIVE); GLUCOSE, URINE (UA) NEGATIVE (NEGATIVE); KETONES,URINE (UA) NEGATIVE (NEGATIVE); LEUKOCYTE ESTERASE, URINE TRACE (NEGATIVE); NITRITE,URINE NEGATIVE (NEGATIVE); OCCULT BLOOD,URINE NEGATIVE (NEGATIVE); PROTEIN,URINE NEGATIVE (NEGATIVE); UROBILINOGEN,URINE 0.2 (NORMAL) E.U./dL (NORMAL)
[2023-09-12 15:13] LABS: CLARITY,URINE HAZY (CLEAR)
[2023-09-12 15:24] LABS: BACTERIA,URINE Moderate /HPF (None Seen); RBC,URINE 0-5 /HPF (0-5); SQUAMOUS EPITHELIAL CELL,UR NONE SEEN (<= Few)
[2023-09-12] MEDS: cefTRIAXone 1 GM VIAL IM STA (16:13)
[2023-09-12] MEDS: LIDOCAINE 1% 2 ML VIAL MC ONE (16:14)
[2023-09-12 16:41] VITALS: O2SAT 98
[2023-09-12 17:47] VITALS: BP 155/82
== END 2023-09-12 17:44 | disposition home or self-care (01) ==
LOC: ED 13:21
DX: N39.0 Urinary tract infection, site not specified (principal); Z74.01 Bed confinement status
CPT/HCPCS: 36415; 80053; 81001; 81003; 85025; 87077; 87086; 87181; 96372; 99283; 99284

== ENCOUNTER 2023-09-12 17:45 | Outpatient (CLI) | payer MEDICARE, OTHER | END 2023-09-12 23:59 | LOC: EMS 17:45 | PROVIDERS: ATTEND Emergency Medicine | DX: N39.0 Urinary tract infection, site not specified (principal); F03.90 Unspecified dementia, unspecified severity, without behavioral disturbance, psychotic disturbance, mood disturbance, and anxiety; Z74.01 Bed confinement status | CPT/HCPCS: A0425; A0428 ==

== ENCOUNTER 2023-12-06 12:29 | Outpatient (CLI) | payer MEDICARE, OTHER | END 2023-12-06 23:59 | disposition critical access hospital (66) | LOC: EMS 12:29 | DX: R09.89 Other specified symptoms and signs involving the circulatory and respiratory systems (principal) | CPT/HCPCS: A0425; A0429 ==

== ENCOUNTER 2023-12-06 12:59 | Inpatient (IN) | payer MEDICARE, OTHER ==
[2023-12-06 13:33] LABS: BASOPHILS % (AUTO) 0.7 %; EOSINOPHILS # (AUTO) 0.2 10^3/uL (0.0-0.7); HCT - HEMATOCRIT 39.7 % (37.0-47.0); HGB - HEMOGLOBIN 12.2 g/dL (12.0-16.0); LYMPHOCYTES # (AUTO) 0.7 10^3/uL (1.5-3.5); LYMPHOCYTES % (AUTO) 11.9 %; MEAN CORPUSCULAR HEMOGLOBIN 33.2 pg (27.0-31.0); MEAN CORPUSCULAR HGB CONC 30.7 g/dL (32.0-36.0); MEAN CORPUSCULAR VOLUME 107.9 fL (81.0-99.0); MONOCYTES # (AUTO) 0.4 10^3/uL (0.0-1.0); MONOCYTES % (AUTO) 7.6 %; NEUTROPHILS # (AUTO) 4.4 10^3/uL (1.5-6.6); NEUTROPHILS % (AUTO) 74.9 %; PLT - PLATELET COUNT 311 10^3/uL (130-450); RED BLOOD COUNT 3.68 10^6/uL (4.20-5.40); RED CELL DISTRIBUTION WIDTH 17.4 % (12.0-15.0); WHITE BLOOD COUNT 5.8 x10^3/uL (4.8-10.8)
[2023-12-06 13:40] LABS: ABG HCO3 34.9 mmol/L (22.0-26.0); ABG PCO2 59 mmHg (34-45); ABG PH 7.39 (7.35-7.45); ABG PO2 53 mmHg (80-100)
[2023-12-06 13:41] LABS: ABG BASE EXCESS 8.1 mmol/L (-2.0-3.0); ABG OXYGEN SATURATION 89 % (94-98); ABG TCO2 36.7 MMOL/L (21.0-29.0); ALLEN TEST POSITIVE
[2023-12-06 14:02] LABS: ALBUMIN 3.6 g/dL (3.2-5.5); ALBUMIN/GLOBULIN RATIO 1.5 (1.0-2.2); BILIRUBIN,TOTAL 0.7 mg/dL (0.2-1.0); CALCIUM 8.9 mg/dL (8.5-10.3); CREATININE 0.3 mg/dL (0.6-1.3)
--- NOTE | 2023-12-06 14:24 | XRAY Report ---
PROCEDURE: Chest 1V INDICATIONS: low sats TECHNIQUE: One view of the chest was acquired. COMPARISON: None. FINDINGS: Surgical changes and devices: None. Lungs and pleura: No pleural effusions or pneumothorax. Patchy interstitial infiltrate, right lung. Mediastinum: Mediastinal contours appear normal. Heart size is normal. Bones and chest wall: No suspicious bony lesions. Overlying soft tissues appear unremarkable. IMPRESSION: Patchy interstitial infiltrate, right lung. Reviewed by: Huey Carr MD on 12/06/2023 2:23 PM PDT Approved by: Huey Carr MD on 12/06/2023 2:23 PM PDT Station ID: [id number]
[2023-12-06] MEDS: AZITHROMYCIN 250 MG TABLET PO STA (14:39)
[2023-12-06] MEDS: LIDOCAINE 1% 2 ML VIAL MC ONE (14:40)
[2023-12-06] MEDS: cefTRIAXone 1 GM VIAL IM STA (14:41)
--- NOTE | 2023-12-06 15:38 | ED Physician Documentation ---
History of Present Illness - Stated complaint Stated Complaint: LOW O2 SAT - Chief complaint Chief Complaint: Resp - History obtained from History obtained from: Patient - Additonal information Additional information: The patient comes to the emergency department for chief complaint of low oxygen readings at home. The patient's caregiver noticed that she seemed to have less energy than usual and that her O2 sats were in the mid 80s. The patient has not been coughing but does not breathe very deeply at baseline. The patient has a history of recurrent pneumonia. The patient states she has not had any fevers that have been measured at home. 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 - Present Medications Home Medications: Ambulatory Orders Medication Instructions Recorded Confirmed Acetaminophen [Tylenol] 650 mg PO Q4HR PRN tab 07/17/23 09/12/23 Cholecalciferol [Vitamin D3] 50 mcg PO DAILY tab 07/17/23 09/12/23 Citalopram [CeleXA] 10 mg PO DAILY #30 tablet 07/17/23 09/12/23 Docusate Sodium 250Mg Capsule 250 - 500 mg PO DAILY cap 07/17/23 09/12/23 [Colace 250Mg Capsule] levoFLOXacin [Levaquin] 250 mg PO QD #2 tablet 07/17/23 09/12/23 traZODone [Desyrel] 25 mg PO QPM PRN tab 07/17/23 09/12/23 cephALEXin [Keflex] 500 mg PO BID #14 cap 09/12/23 - Allergies Allergies/Adverse Reactions: Allergies Allergy/AdvReac Type Severity Reaction Status Date / Time Penicillins Allergy Rash Verified 12/06/23 13:04 - Social History Does the pt smoke?: No Smoking Status: Never smoker Does the pt drink ETOH?: No Does the pt have substance abuse?: No - Immunizations Immunizations are current?: No - POLST Patient has POLST: No POLST Status: Full Code PD ED PE NORMAL - Vitals Vital signs reviewed: Yes - General General: No acute distress, Well developed/nourished, Other (Drowsy, answers questions slowly.) - HEENT HEENT: Atraumatic, Moist mucous membranes - Neck Neck: Supple, no meningeal sign - Cardiac Cardiac: RRR, Other (3/6 systolic murmur) - Respiratory Respiratory: No respiratory distress, Clear bilaterally - Abdomen Abdomen: Soft, Non tender, Non distended - Derm Derm: Normal color, Warm and dry, No rash - Extremities Extremities: No deformity, Other (Chronic-appearing woody edema) - Neuro Neuro: Other (Awake, drowsy, answers questions) - Psych Psych: Normal mood, Normal affect Results - Vitals Vitals: Vital Signs - 24 hr 12/06/23 12/06/23 13:04 15:13 Temperature 36.7 C Heart Rate 85 73 Respiratory 18 18 Rate Blood Pressure 168/100 H 157/96 H O2 Saturation 92 93 If not protocol 4 : Oxygen Flow, liters/minute Oxygen O2 Source Nasal cannula Oxygen Flow Rate 2 - Labs Labs: Laboratory Tests 12/06/23 12/06/23 12/06/23 13:24 13:24 13:30 WBC 5.8 RBC 3.68 L Hgb 12.2 Hct 39.7 MCV 107.9 H MCH 33.2 H MCHC 30.7 L RDW 17.4 H Plt Count 311 MPV 9.0 Neut # (Auto) 4.4 Lymph # (Auto) 0.7 L Garza # (Auto) 0.4 Eos # (Auto) 0.2 Baso # (Auto) 0.0 Absolute Nucleated RBC 0.00 Nucleated RBC % 0.0 Bld Gas Analysis Time 1339 Sample Site RIGHT RADIAL ABG pH 7.39 ABG pCO2 59 H ABG pO2 53 L ABG HCO3 34.9 H ABG Total CO2 36.7 H ABG O2 Saturation 89 L ABG Base Excess 8.1 H Wayne Test POSITIVE Room Air YES Sodium 141 Potassium 4.0 Chloride 103 Carbon Dioxide 36 H Anion Gap 2.0 L BUN 28 H Creatinine 0.3 L Estimated GFR (MDRD) 216 Glucose 101 Calcium 8.9 Total Bilirubin 0.7 AST 13 ALT 7 L Alkaline Phosphatase 72 Total Protein 6.0 L Albumin 3.6 Globulin 2.4 Albumin/Globulin Ratio 1.5 Lipase 24 - Rads (name of study) chest XR Relevant Findings:: Final report received, See rad report PD Medical Decision Making - ED course Complexity details: reviewed results, re-evaluated patient, considered diffe rential, d/w patient ED course: The patient was found to have an oxygen saturation of upper 80s to low 90s on the saturation monitor and was not clear exactly what her true oxygenation status was. As such, a room air ABG was performed and showed a pH of 7.39, pO2 of 53.1, which was low, and an O2 saturation of 89%. Chest x-ray showed a right lower lobe pneumonia and patient was given Rocephin and Zithromax for this. Her laboratory studies overall were unremarkable other than ABG. She was placed on supplemental oxygen at 3 L per nasal cannula. I spoke with Dr. Kessler to get this patient admitted but was then informed that there were no beds. At this point in time, the patient will be signed out to Dr. Mejias at change of shift, pending either bed availability or improvement in status and discharge. Departure - Departure Disposition: ED Place in Observation Clinical Impression: Hypoxia Pneumonia Qualifiers: Pneumonia type: due to unspecified organism Laterality: right Lung location: lower lobe of lung Qualified Code(s): J18.9 - Pneumonia, unspecified organism Condition: Serious Forms: PCP List
[2023-12-06 17:06] LABS: B. PARAPERTUSSIS- RESP PCR PAN NOT DETECTED; B. PERTUSSIS- RESP PCR PANEL NOT DETECTED; C. PNEUMONIAE- RESP PCR PANEL NOT DETECTED; CORONAVIRUS 229E-RESP PCR NOT DETECTED; CORONAVIRUS HKU1-RESP PCR NOT DETECTED; CORONAVIRUS NL63-RESP PCR NOT DETECTED; CORONAVIRUS OC43-RESP PCR NOT DETECTED; HUMAN METAPNEUMOVIRUS NOT DETECTED; INFLUENZA A- RESP PCR PANEL NOT DETECTED; INFLUENZA B - RESP PCR PANEL NOT DETECTED; M. PNEUMONIAE- RESP PCR PANEL NOT DETECTED; PARAINFLUENZA VIRUS 1 NOT DETECTED; PARAINFLUENZA VIRUS 2 NOT DETECTED; PARAINFLUENZA VIRUS 3 NOT DETECTED; PARAINFLUENZA VIRUS 4 NOT DETECTED; RHINOVIRUS/ENTEROVIRUS NOT DETECTED; RSV- RESP PCR PANEL NOT DETECTED; SARS-CoV-2 -RESP PCR PANEL NOT DETECTED
[2023-12-06] MEDS ORDERED: traZODone 50 MG TABLET PO PRN (17:52)
--- NOTE | 2023-12-06 17:57 | HISTORY & PHYSICAL EXAMINATION ---
Chief Complaint - Chief Complaint Chief Complaint: Shortness of breath History of Present Illness - Admitted From Admitted From:: Emergency department - History of Present Illness HPI Comment/Other: The patient is an extremely cachectic 78-year-old female. She lives at home with her and apparently has caregivers. She was brought to the emergency room when her caregivers noted that she had less energy than usual and her O2 sats were checked and were found to be in the mid 80s. The patient has severe kyphosis and scoliosis at baseline and has a history of recurrent pneumonias. She has had some psychiatric issues and it was previously documented during her previous hospitalization in July that she has OCD. There is also some concerns that she could have some underlying dementia. She had a CT scan of the chest in July which revealed narrowing of the distal esophagus potentially representing a presence of a benign stricture or mass which resulted in significant dilation of the more proximal esophagus. She has severe dextrocurvature of the thoracic spine. Apparently radiology and general surgery took another look at the CT as there were some concerns that she might need an EEG. Both concur that it was possibly the aorta and the curvature of the spine that is externally compressing her esophagus. At that time the patient did not have any dysphagia or emesis and was relatively asymptomatic and an EGD was not felt to be necessary. When I went to see the patient she is lying flat in the bed. She answered questions appropriately and did not appear to be acutely confused. She was pleasant and cooperative. She tells me that she oftentimes has difficulty swallowing her food and that sometimes especially with ground beef she has to chew it up and spit it out. She does not recall choking on any of her food lately. She is profoundly cachectic and I asked her about her appetite and she said that it is fairly good. She denies any fever or chills at home. She says she has not had a cough but has been more short of breath. She has had no nausea or vomiting. No abdominal pain. She cannot recall when she last had a bowel movement. She has no urinary complaints. She tells me that she spends most of her time in bed and rarely gets up to a wheelchair these days. There are no family members at the bedside. She has a POLST on file from July indicating that she is a DO NOT RESUSCITATE and that will be honored during this hospitalization. At that time selective treatment was opted for. 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 Patient has a younger sister that at 59 due to cancer (patient unable to recall what type) and one living sister and brother that are healthy. Patients has one son with no health issues Living Situation: With spouse/s.o. Social History Notes: Patient does not smoke or drink. She lives at home with her of 40+ years who she met in [place] when he was stationed there with the [employer] a [employer]. She has never worked. Patient mostly remains at home on the upper level of her house and has struggled taking care of herself. She hasn't bathed in many years and previously wore the same pair of socks for years. Patient r eports that she does not eat 3 meals a day but takes "nibbles" of things throughout the day. Her reports that she rarely eats a whole TV dinner and exhibits OCD tendencies like washing her hands multiple times in a row and doing repetitive actions. She is bound to a wheelchair for movement and struggles to transition to her bed so she often sleeps sitting in her wheelchair. - Substance History Use: Uses substance without health or social issues: NONE - POLST Patient has POLST: No POLST Status: Full Code Meds/Allgy - Home Medications Home Medications: Ambulatory Orders Medication Instructions Recorded Confirmed Acetaminophen [Tylenol] 650 mg PO Q4HR PRN tab 07/17/23 09/12/23 Cholecalciferol [Vitamin D3] 50 mcg PO DAILY tab 07/17/23 09/12/23 Citalopram [CeleXA] 10 mg PO DAILY #30 tablet 07/17/23 09/12/23 Docusate Sodium 250Mg Capsule 250 - 500 mg PO DAILY cap 07/17/23 09/12/23 [Colace 250Mg Capsule] levoFLOXacin [Levaquin] 250 mg PO QD #2 tablet 07/17/23 09/12/23 traZODone [Desyrel] 25 mg PO QPM PRN tab 07/17/23 09/12/23 cephALEXin [Keflex] 500 mg PO BID #14 cap 09/12/23 - Allergies Allergies/Adverse Reactions: Allergies Allergy/AdvReac Type Severity Reaction Status Date / Time Penicillins Allergy Rash Verified 12/06/23 13:04 Review of Systems - Constitutional Constitutional: reports: Fatigue - Respiratory Respiratory: reports: Other (The patient complains of shortness of breath at rest and with exertion) - All Other Systems All Other Systems: reports: Reviewed and negative, Other (I am not sure how accurate this review of systems is) Prior Level of Functionality: The patient does not ambulate. Previously was wheelchair-bound. She tells me today that she spends most of her time in bed and is rarely up in her wheelchair. Again I am not sure how accurate this is as there are no family members there to confirm Exam - Vital Signs Vital Signs: Vital Signs x48h Temp Pulse Resp BP Pulse Ox O2 Flow Rate 12/06/23 17:00 76 16 134/89 H 98 12/06/23 15:13 73 18 157/96 H 93 4 12/06/23 13:04 36.7 C 85 18 168/100 H 92 - Physical Exam General Appearance: positive: No acute distress, Other (She is profoundly cachectic. She is pleasant and cooperative) Eyes Bilateral: positive: Normal inspection ENT: positive: Other (She has severe bitemporal muscle wasting bilaterally) Respiratory: positive: Chest non-tender, No respiratory distress, Other (She seems diminished in the lower bases. She had poor effort so it was difficult to get a good exam.) Cardiovascular: positive: Regular rate & rhythm, No murmur, No gallop. negative: Friction rub Abdomen: positive: Non-tender, Other (Extremely thin and cachectic) Extremities: positive: Other (Both of her feet are externally rotated. There is some contractures of her toes. Significant venous stasis changes bilaterally with dry scaly thick skin. No wounds or erythema noted. She has significant muscle wasting and fat loss throughout all 4 extremities.) Neurologic/Psychiatric: positive: Oriented x3, CN's nml (2-12), Other (The patient is alert and oriented x 3 but clearly gets somewhat confused at times.) Sepsis Event Note (H) - Evaluation Current Stage of Sepsis: Ruled out Conclusion/Plan - Problem List (1) Acute hypoxic respiratory failure Conclusion/Plan: This the patient had oxygen saturations in the mid 80s at home. She has evidence of underlying pneumonia. Oxygenation is improving a bit. Would titrate to keep her oxygen saturations greater than 93%. Therapy will be outlined below. (2) Pneumonia Conclusion/Plan: The patient has evidence of underlying pneumonia. She will be placed on IV ceftriaxone and doxycycline. Cannot rule out that she possibly could have aspirated. She seems to be dehydrated and we will start her on some IV fluids this evening as well. Continue to try to wean her off of oxygen. Will get her a flutter valve as well. Qualifiers: Pneumonia type: due to unspecified organism Laterality: right Lung location: lower lobe of lung Qualified Code(s): J18.9 - Pneumonia, unspecified organism (3) Paroxysmal atrial fibrillation Conclusion/Plan: The patient has a history of paroxysmal atrial fibrillation. Currently in a sinus rhythm and rate controlled. Will keep her on telemetry overnight (4) Kyphoscoliosis deformity of spine Conclusion/Plan: This is quite severe. She is now mostly bedbound. (5) Esophageal stricture Conclusion/Plan: There was some external compression due to her kyphosis on the esophagus during her previous hospitalization. I have a low threshold for getting another CT of the chest if the patient does not improve. She is having increasing difficulty swallowing. Will place her on a pured diet for now. (6) OCD (obsessive compulsive disorder) Conclusion/Plan: Continue Celexa. She seems to be alert, appropriate and cooperative at the time of my exam. (7) Severe protein-calorie malnutrition Conclusion/Plan: The patient is profoundly malnourished with muscle wasting and fat loss throughout her whole body. Will have the clinical dietitian see her. For now I am going to place her on a pured diet as it appears she has been having difficulty swallowing. (8) Sarcopenia Conclusion/Plan: The patient has profound weakness, muscle wasting and fat loss. She is nonambulatory and she tells me she is not getting up to the wheelchair is much as she used to. Her is not at the bedside. I have consulted the care managers to discuss with the if they are doing okay at home. Disposition: For now the patient will be placed in observation in the hospital. She already is improving from a respiratory standpoint and may be able to be weaned off of oxygen overnight and possibly be discharged tomorrow. Will see how she does overnight and make further decisions at that time. Time spent: 45 minutes - Lab Results Lab results reviewed: Yes Fish Bones: 12/06/23 13:24 12/06/23 13:24
[2023-12-06] MEDS: DEXTROSE 5%-0.45% NACL 1,000 ML IV SCH (19:13)
[2023-12-07] MEDS: SODIUM CHLORIDE FLUSH 0.9% 10 ML SYRINGE IVP SCH (00:01)
[2023-12-07] MEDS: DOXYCYCLINE INJ 100 MG in SODIUM CHLORIDE 0.9% MINIBAG 100 ML IV SCH (00:04)
[2023-12-07 07:51] LABS: BASOPHILS % (AUTO) 0.2 %; EOSINOPHILS # (AUTO) 0.3 10^3/uL (0.0-0.7); EOSINOPHILS % (AUTO) 7.9 %; HCT - HEMATOCRIT 41.4 % (37.0-47.0); HGB - HEMOGLOBIN 12.7 g/dL (12.0-16.0); LYMPHOCYTES # (AUTO) 0.3 10^3/uL (1.5-3.5); LYMPHOCYTES % (AUTO) 7.7 %; MEAN CORPUSCULAR HGB CONC 30.7 g/dL (32.0-36.0); MEAN CORPUSCULAR VOLUME 110.7 fL (81.0-99.0); MEAN PLATELET VOLUME 9.1 fL (7.9-10.8); MONOCYTES # (AUTO) 0.2 10^3/uL (0.0-1.0); MONOCYTES % (AUTO) 5.7 %; NEUTROPHILS # (AUTO) 3.3 10^3/uL (1.5-6.6); NEUTROPHILS % (AUTO) 77.8 %; PLT - PLATELET COUNT 301 10^3/uL (130-450); RED BLOOD COUNT 3.74 10^6/uL (4.20-5.40); RED CELL DISTRIBUTION WIDTH 17.2 % (12.0-15.0); WHITE BLOOD COUNT 4.2 x10^3/uL (4.8-10.8)
[2023-12-07 07:52] LABS: SLIDE REVIEW? Indicated
[2023-12-07 08:02] LABS: ALBUMIN 3.2 g/dL (3.2-5.5); MAGNESIUM 1.8 mg/dL (1.7-2.3); PHOSPHORUS 2.3 mg/dL (2.5-5.0)
[2023-12-07 08:32] LABS: PLATELET ESTIMATE, MANUAL NORMAL (130-450,000) (NORMAL); PLATELET MORPHOLOGY NORMAL APPEARANCE (NORMAL); RBC MORPHOLOGY (MULTIPLE) 2+ MACROCYTOSIS (NORMAL)
[2023-12-07] MEDS: CHOLECALCIFEROL 25 MCG TABLET PO SCH (08:44)
[2023-12-07] MEDS: CITALOPRAM 10 MG TABLET PO SCH (08:44)
[2023-12-07] MEDS: ENOXAPARIN 40 MG/0.4 ML SYRINGE SUBQ SCH (08:44)
[2023-12-07] MEDS: cefTRIAXone 2 GM in SODIUM CHLORIDE 0.9% MINIBAG 100 ML IV SCH (08:44)
[2023-12-07 08:46] LABS: CALCIUM 8.6 mg/dL (8.5-10.3); CREATININE 0.3 mg/dL (0.6-1.3); POTASSIUM 4.5 mmol/L (3.5-4.5)
--- NOTE | 2023-12-07 10:30 | PHARMACY PROGRESS NOTE ---
- Best Possible Medication History Admit Date and Time: 12/06/23 1747 Processed by: Pharmacy Medications reviewed in ED?: Yes Medication History completed: Yes Patient Interview: Completed Secondary Source(s): Pharmacy records, Insurance records As the person ultimately responsible for medication therapy, providers are able to order a medication from an existing home medication list in [facility] via the "Reconcile Routine" prior to Confirmation of that medication by business support. Such practice is discouraged except when the physician, in their clinical judgment, deems that a medical need exists for a medication without regard to previous use.
--- NOTE | 2023-12-07 12:13 | PROVIDER PROGRESS NOTE ---
Subjective - Prog Note Date Prog Note Date: 12/07/23 Prog Note Time: 12:00 - Subjective Subjective: The patient is still requiring oxygen this morning. Her oxygen was removed and she quickly dropped down to about 89% on room air. CO2 level is somewhat el evated. She has been placed back on 1 L of oxygen for now. The patient is asking when she can go home. It was difficult to get a review of systems out of her. She says that she feels fine. The patient's came to the room. I had a long discussion with both the patient and her . The patient has been quite resistant and does not have any medical care as an outpatient. She refuses to go to outpatient doctors. She has a doctor that she follows on TV and she said if she can get into see him in [place] that she would go but otherwise does not want to pursue any medical care when she gets out of the hospital. The patient is largely bedbound. He does pick her up and put her in a wheelchair on most days. She does not ambulate. She is profoundly malnourished with a BMI of 15.3. We discussed palliative care and hospice. The patient's is quite anxious to get some information as he feels that that would be some medical care coming into the house for her and he seems to have a good understanding of her overall situation and understands that her life expectancy is likely short. The patient is not so sure. She associates hospice with immediately dying. I tried to educate her regarding this but she was quite resistant. At the end of our conversation they had decided that they would like an informative visit from hospice and I have placed an order for this accordingly. Current Medications - Current Medications Current Medications: Active Medications Generic Name Dose Route Start Last Admin Trade Name Freq PRN Reason Stop Dose Admin Acetaminophen 650 mg 12/06/23 17:48 Acetaminophen 325 Mg Tablet PO Q4HR PRN Pain 1 to 4, or Fever Cholecalciferol 50 mcg 12/07/23 09:00 12/07/23 08:44 Cholecalciferol 25 Mcg Tablet PO 50 mcg DAILY SHERRIE Administration Citalopram Hydrobromide 10 mg 12/07/23 09:00 12/07/23 08:44 Citalopram 10 Mg Tablet PO 10 mg DAILY SHERRIE Administration Enoxaparin Sodium 40 mg 12/07/23 09:00 12/07/23 08:44 Enoxaparin 40 Mg/0.4 Ml Syringe SUBQ 40 mg DAILY SHERRIE Administration Dextrose/Sodium Chloride 1,000 mls @ 75 mls/hr 12/06/23 18:00 12/07/23 08:44 [id number] IV 75 mls/hr .[id number] SHERRIE Administration Ceftriaxone Sodium 2 gm/ 100 mls @ 200 mls/hr 12/07/23 09:00 12/07/23 08:44 Sodium Chloride IV 200 mls/hr DAILY SHERRIE Administration Doxycycline Hyclate 100 mg/ 100 mls @ 100 mls/hr 12/06/23 22:00 12/07/23 10:50 Sodium Chloride IV Infused Q12H SHERRIE Infusion Multivitamins/Minerals 1 tab 12/07/23 12:00 Multivitamin W/Minerals Tablet PO DAILYWM SHERRIE Ondansetron HCl 4 mg 12/06/23 17:48 Ondansetron 4 Mg/2 Ml Vial IVP Q6HR PRN Nausea / Vomiting Sodium Chloride 10 ml 12/06/23 17:48 Sodium Chloride Flush 0.9% 10 Ml Syringe IVP PRN PRN NEEDED PER PROVIDER ORDERS Sodium Chloride 10 ml 12/07/23 01:00 12/07/23 08:44 Sodium Chloride Flush 0.9% 10 Ml Syringe IVP 10 ml 0100,0900,1700 SHERRIE Administration Trazodone HCl 25 mg 12/06/23 17:52 Trazodone 50 Mg Tablet PO QPM PRN Insomnia Objective - Vital Signs/Intake & Output Reviewed Vital Signs: Yes Vital Signs: Vital Signs x48h Temp Pulse Resp BP Pulse Ox O2 Flow Rate 12/07/23 07:30 2 12/07/23 06:00 37.2 C 72 16 106/71 98 2 Intake & Output: Intake & Output 12/04/23 12/05/23 12/06/23 12/07/23 23:59 23:59 23:59 23:59 Intake Total 360 1377.5 Output Total 0 500 Balance 360 877.5 - Objective General Appearance: positive: No acute distress, Other (She is more interactive today. She appears to be alert and oriented but also at times seems to be confused as to her situation and does not have very realistic expectations or understanding of her current condition. She is profoundly malnourished and cachectic) Eyes Bilateral: positive: Normal inspection ENT: positive: Other (Severe bitemporal muscle wasting bilaterally) Neck: positive: Nml inspection Respiratory: positive: Chest non-tender, No respiratory distress, Other (Poor effort. Her lungs sound fairly clear anteriorly) Cardiovascular: positive: Regular rate & rhythm, No murmur, No gallop. negative: Friction rub Abdomen: positive: Non-tender, Nml bowel sounds Skin: positive: Color nml, No rash, Warm, Dry Extremities: positive: Non-tender, Other (Severe muscle wasting and fat loss throughout all 4 extremities) Neurologic/Psychiatric: positive: Oriented x3, CN's nml (2-12) - Lab Results Fish Bones: 12/07/23 07:44 12/07/23 07:44 Other Labs: Lab Results x24hrs 12/07/23 12/07/23 12/06/23 Range/Units 07:44 07:44 16:04 WBC 4.2 L (4.8-10.8) x10^3/uL RBC 3.74 L (4.20-5.40) 10^6/uL Hgb 12.7 (12.0-16.0) g/dL Hct 41.4 (37.0-47.0) % MCV 110.7 H (81.0-99.0) fL MCH 34.0 H (27.0-31.0) pg MCHC 30.7 L (32.0-36.0) g/dL RDW 17.2 H (12.0-15.0) % Plt Count 301 (130-450) 10^3/uL MPV 9.1 (7.9-10.8) fL Neut # (Auto) 3.3 (1.5-6.6) 10^3/uL Lymph # (Auto) 0.3 L (1.5-3.5) 10^3/uL [place] # (Auto) 0.2 (0.0-1.0) 10^3/uL Eos # (Auto) 0.3 (0.0-0.7) 10^3/uL Baso # (Auto) 0.0 (0.0-0.1) 10^3/uL Absolute Nucleated RBC 0.00 x10^3/uL Nucleated RBC % 0.0 /100WBC Manual Slide Review Indicated Platelet Estimate NORMAL (130-450,000) (NORMAL) Platelet Morphology NORMAL APPEARANCE (NORMAL) RBC Morph Micro Appear 2+ MACROCYTOSIS (NORMAL) Bld Gas Analysis Time Sample Site ABG pH (7.35-7.45) ABG pCO2 (34-45) mmHg ABG pO2 (80-100) mmHg ABG HCO3 (22.0-26.0) mmol/L ABG Total CO2 (21.0-29.0) MMOL/L ABG O2 Saturation (94-98) % ABG Base Excess (-2.0-3.0) mmol/L Wayne Test Room Air Sodium 141 (135-145) mmol/L Potassium 4.5 (3.5-4.5) mmol/L Chloride 103 (101-111) mmol/L Carbon Dioxide 39 H* (21-32) mmol/L Anion Gap -1.0 L (6-13) BUN 21 H (6-20) mg/dL Creatinine 0.3 L (0.6-1.3) mg/dL Estimated GFR (MDRD) 216 (>89) Glucose 141 H (74-104) mg/dL Calcium 8.6 (8.5-10.3) mg/dL Phosphorus 2.3 L (2.5-5.0) mg/dL Magnesium 1.8 (1.7-2.3) mg/dL Total Bilirubin (0.2-1.0) mg/dL AST (10-42) IU/L ALT (10-60) IU/L Alkaline Phosphatase (42-121) IU/L Total Protein (6.4-8.9) g/dL Albumin 3.2 (3.2-5.5) g/dL Globulin (2.1-4.2) g/dL Albumin/Globulin Ratio (1.0-2.2) Lipase (11-82) U/L Nasal Adenovirus (PCR) NOT DETECTED Nasal B. parapertussis DNA (PCR) NOT DETECTED Nasal Coronavir 229E PCR NOT DETECTED Nasal Coronavir HKU1 PCR NOT DETECTED Nasal Coronavir NL63 PCR NOT DETECTED Nasal Coronavir OC43 PCR NOT DETECTED Nasal Enterovir/Rhinovir PCR NOT DETECTED Nasal Influenza B PCR NOT DETECTED Nasal Influenza A PCR NOT DETECTED Nasal Parainfluen 1 PCR NOT DETECTED Nasal Parainfluen 2 PCR NOT DETECTED Nasal Parainfluen 3 PCR NOT DETECTED Nasal Parainfluen 4 PCR NOT DETECTED Nasal RSV (PCR) NOT DETECTED Nasal B.pertussis DNA PCR NOT DETECTED Nasal C.pneumoniae (PCR) NOT DETECTED Jourdan Human Metapneumo PCR NOT DETECTED Nasal M.pneumoniae (PCR) NOT DETECTED Nasal SARS-CoV-2 (PCR) NOT DETECTED 12/06/23 12/06/23 12/06/23 Range/Units 13:30 13:24 13:24 WBC 5.8 (4.8-10.8) x10^3/uL RBC 3.68 L (4.20-5.40) 10^6/uL Hgb 12.2 (12.0-16.0) g/dL Hct 39.7 (37.0-47.0) % MCV 107.9 H (81.0-99.0) fL MCH 33.2 H (27.0-31.0) pg MCHC 30.7 L (32.0-36.0) g/dL RDW 17.4 H (12.0-15.0) % Plt Count 311 (130-450) 10^3/uL MPV 9.0 (7.9-10.8) fL Neut # (Auto) 4.4 (1.5-6.6) 10^3/uL Lymph # (Auto) 0.7 L (1.5-3.5) 10^3/uL [place] # (Auto) 0.4 (0.0-1.0) 10^3/uL Eos # (Auto) 0.2 (0.0-0.7) 10^3/uL Baso # (Auto) 0.0 (0.0-0.1) 10^3/uL Absolute Nucleated RBC 0.00 x10^3/uL Nucleated RBC % 0.0 /100WBC Manual Slide Review Platelet Estimate (NORMAL) Platelet Morphology (NORMAL) RBC Morph Micro Appear (NORMAL) Bld Gas Analysis Time 1339 Sample Site RIGHT RADIAL ABG pH 7.39 (7.35-7.45) ABG pCO2 59 H (34-45) mmHg ABG pO2 53 L (80-100) mmHg ABG HCO3 34.9 H (22.0-26.0) mmol/L ABG Total CO2 36.7 H (21.0-29.0) MMOL/L ABG O2 Saturation 89 L (94-98) % ABG Base Excess 8.1 H (-2.0-3.0) mmol/L Wayne Test POSITIVE Room Air YES Sodium 141 (135-145) mmol/L Potassium 4.0 (3.5-4.5) mmol/L Chloride 103 (101-111) mmol/L Carbon Dioxide 36 H (21-32) mmol/L Anion Gap 2.0 L (6-13) BUN 28 H (6-20) mg/dL Creatinine 0.3 L (0.6-1.3) mg/dL Estimated GFR (MDRD) 216 (>89) Glucose 101 (74-104) mg/dL Calcium 8.9 (8.5-10.3) mg/dL Phosphorus (2.5-5.0) mg/dL Magnesium (1.7-2.3) mg/dL Total Bilirubin 0.7 (0.2-1.0) mg/dL AST 13 (10-42) IU/L ALT 7 L (10-60) IU/L Alkaline Phosphatase 72 (42-121) IU/L Total Protein 6.0 L (6.4-8.9) g/dL Albumin 3.6 (3.2-5.5) g/dL Globulin 2.4 (2.1-4.2) g/dL Albumin/Globulin Ratio 1.5 (1.0-2.2) Lipase 24 (11-82) U/L Nasal Adenovirus (PCR) Nasal B. parapertussis DNA (PCR) Nasal Coronavir 229E PCR Nasal Coronavir HKU1 PCR Nasal Coronavir NL63 PCR Nasal Coronavir OC43 PCR Nasal Enterovir/Rhinovir PCR Nasal Influenza B PCR Nasal Influenza A PCR Nasal Parainfluen 1 PCR Nasal Parainfluen 2 PCR Nasal Parainfluen 3 PCR Nasal Parainfluen 4 PCR Nasal RSV (PCR) Nasal B.pertussis DNA PCR Nasal C.pneumoniae (PCR) Jourdan Human Metapneumo PCR Nasal M.pneumoniae (PCR) Nasal SARS-CoV-2 (PCR) Sepsis Event Note (H) - Evaluation Current Stage of Sepsis: Ruled out Assessment/Plan - Problem List (1) Acute hypoxic respiratory failure Impression: The patient is still requiring 1 L of oxygen and quickly desats into the upper 90s when her oxygen is taken off. She may be developing chronic respiratory failure due to her severe kyphosis. Will continue therapy today. Hospice is coming out for an informational interview. She may require oxygen at discharge. (2) Pneumonia Impression: The patient has evidence of pneumonia. Continue ceftriaxone and doxycycline. This is day #2 of treatment. She seems to be somewhat improved today. Qualifiers: Pneumonia type: due to unspecified organism Laterality: right Lung location: lower lobe of lung Qualified Code(s): J18.9 - Pneumonia, unspecified organism (3) Paroxysmal atrial fibrillation Impression: Currently in a sinus rhythm and rate controlled (4) Kyphoscoliosis deformity of spine Impression: She has severe kyphosis and scoliosis of the spine. She had external compression of her esophagus on CT scan in July from her aorta due to the kyphosis. At this point I do not believe she needs a CT scan of the chest. S upportive care. (5) Esophageal stricture Impression: The patient will be on a moist and minced diet. She says she has some difficulty swallowing at home. (6) OCD (obsessive compulsive disorder) Impression: It is documented that the patient has a history of OCD. When she came to the hospital in July she had not received medical care. She had been wearing the same pair of socks for a year and had not bathed in several years. Clearly with some psychiatric issues and possibly some early dementia. She refuses ou tpatient medical care. (7) Severe protein-calorie malnutrition Impression: The patient is profoundly malnourished. Continue moist and minced diet and supplements. The clinical dietitian was following (8) Sarcopenia Impression: The patient has significant muscle wasting and fat loss and is profoundly weak. She does not ambulate and is wheelchair-bound. She is spending more more time in the bed. Will have Occupational Therapy and physical therapy see her to see if there is any rehab potential. Also hospice will be coming out for an informational visit. Disposition: The patient status will be changed from observation to a full admission. The patient is still hypoxic. She is requiring treatment for underlying pneumonia. Hospice is going to come out for an informational visit. She may require home oxygen at discharge. Will see how other discussions go with hospice and make further decisions tomorrow. I suspect we can get her out of the hospital in the next 24 to 48 hours depending on how she does and what they decide to do Time spent: 35 minutes
[2023-12-07] MEDS: MULTIVITAMIN W/MINERALS TABLET PO SCH (12:44)
[2023-12-07] MEDS: ACETAMINOPHEN 325 MG TABLET PO PRN (13:22)
[2023-12-07] MEDS ORDERED: VANCOMYCIN INJ 1 GM in SODIUM CHLORIDE 0.9% 500 ML IV STA (16:18)
[2023-12-07] MEDS: SODIUM CHLORIDE 0.9% 1,000 ML IV ONE (16:35)
[2023-12-07] MEDS: SODIUM CHLORIDE FLUSH 0.9% 10 ML SYRINGE IVP PRN (16:37)
[2023-12-07] MEDS: CYANOCOBALAMIN 500 MCG TABLET PO SCH (17:43)
[2023-12-07] MEDS: SODIUM CHLORIDE 0.9% 1,000 ML IV STA (17:43)
[2023-12-07] MEDS: VANCOMYCIN INJ 0.75 GM in SODIUM CHLORIDE 0.9% 250 ML IV ONE (17:43)
[2023-12-07] MEDS: CEFEPIME 2 GM in SODIUM CHLORIDE 0.9% MINIBAG 100 ML IV SCH (19:26)
[2023-12-07] MEDS: ONDANSETRON 4 MG/2 ML VIAL IVP PRN (22:23)
[2023-12-08] MEDS: SODIUM CHLORIDE 0.9% 1,000 ML IV SCH (01:32)
[2023-12-08 08:01] LABS: BASOPHILS % (AUTO) 0.1 %; EOSINOPHILS # (AUTO) 0.6 10^3/uL (0.0-0.7); EOSINOPHILS % (AUTO) 6.1 %; HCT - HEMATOCRIT 38.6 % (37.0-47.0); HGB - HEMOGLOBIN 11.8 g/dL (12.0-16.0); LYMPHOCYTES # (AUTO) 0.4 10^3/uL (1.5-3.5); LYMPHOCYTES % (AUTO) 3.9 %; MEAN CORPUSCULAR HEMOGLOBIN 33.8 pg (27.0-31.0); MEAN CORPUSCULAR HGB CONC 30.6 g/dL (32.0-36.0); MEAN CORPUSCULAR VOLUME 110.6 fL (81.0-99.0); MEAN PLATELET VOLUME 9.1 fL (7.9-10.8); MONOCYTES # (AUTO) 0.3 10^3/uL (0.0-1.0); MONOCYTES % (AUTO) 3.5 %; NEUTROPHILS # (AUTO) 7.7 10^3/uL (1.5-6.6); NEUTROPHILS % (AUTO) 85.3 %; PLT - PLATELET COUNT 267 10^3/uL (130-450); RED BLOOD COUNT 3.49 10^6/uL (4.20-5.40); RED CELL DISTRIBUTION WIDTH 17.2 % (12.0-15.0)
[2023-12-08] MEDS: NEUTRA-PHOS 250 MG TABLET PO SCH (08:05)
[2023-12-08] MEDS: OMEGA-3 ACID ETHYL ESTERS 1 GM CAPSULE PO SCH (08:12)
[2023-12-08 08:18] LABS: ALBUMIN 2.8 g/dL (3.2-5.5); MAGNESIUM 1.7 mg/dL (1.7-2.3)
[2023-12-08 08:35] LABS: CALCIUM 8.2 mg/dL (8.5-10.3); CREATININE 0.2 mg/dL (0.6-1.3); POTASSIUM 3.7 mmol/L (3.5-4.5)
--- NOTE | 2023-12-08 10:56 | PROVIDER PROGRESS NOTE ---
Subjective - Prog Note Date Prog Note Date: 12/08/23 Prog Note Time: 11:00 - Subjective Subjective: The patient is awake and alert. She tells me she feels terrible this morning and feels much worse than she did yesterday. She refused Oliveira catheter place ment yesterday and tells me she does not understand why she feels so poorly. I spent quite some time discussing her fever and hypotension yesterday that were concerning for pending sepsis. I am not sure she understood. Today all she can tell me if she feels bad. A good review of systems cannot be obtained. Nursing staff reports that she is not eating and has been somewhat nauseated this morning Current Medications - Current Medications Current Medications: Active Medications Generic Name Dose Route Start Last Admin Trade Name Freq PRN Reason Stop Dose Admin Acetaminophen 650 mg 12/06/23 17:48 12/07/23 13:22 Acetaminophen 325 Mg Tablet PO 650 mg Q4HR PRN Administration Pain 1 to 4, or Fever Cholecalciferol 50 mcg 12/07/23 09:00 12/08/23 08:05 Cholecalciferol 25 Mcg Tablet PO 50 mcg DAILY SHERRIE Administration Citalopram Hydrobromide 10 mg 12/07/23 09:00 12/08/23 08:05 Citalopram 10 Mg Tablet PO 10 mg DAILY SHERRIE Administration Cyanocobalamin 500 mcg 12/07/23 17:00 12/08/23 08:05 Cyanocobalamin 500 Mcg Tablet PO 500 mcg DAILY SHERRIE Administration Enoxaparin Sodium 40 mg 12/07/23 09:00 12/08/23 08:05 Enoxaparin 40 Mg/0.4 Ml Syringe SUBQ 40 mg DAILY SHERRIE Administration Doxycycline Hyclate 100 mg/ 100 mls @ 100 mls/hr 12/06/23 22:00 12/08/23 10:02 Sodium Chloride IV 100 mls/hr Q12H SHERRIE Administration Cefepime HCl 2 gm/ Sodium 100 mls @ 200 mls/hr 12/07/23 17:00 12/08/23 08:06 Chloride IV 200 mls/hr BID SHERRIE Administration Sodium Chloride 1,000 mls @ 100 mls/hr 12/08/23 02:00 12/08/23 01:32 Normal Saline 0.9% IV 100 mls/hr .Q10H SHERRIE Administration Multivitamins/Minerals 1 tab 12/07/23 12:00 12/08/23 08:05 Multivitamin W/Minerals Tablet PO 1 tab DAILYWM SHERRIE Administration [id number] Ethyl Esters 1 gm 12/08/23 09:00 12/08/23 08:12 [place]-3 Acid Ethyl Esters 1 Gm Capsule PO 1 gm DAILY SHERRIE Administration Ondansetron HCl 4 mg 12/06/23 17:48 12/08/23 08:08 Ondansetron 4 Mg/2 Ml Vial IVP 4 mg Q6HR PRN Administration Nausea / Vomiting Sodium Chloride 10 ml 12/06/23 17:48 12/07/23 22:23 Sodium Chloride Flush 0.9% 10 Ml Syringe IVP 10 ml PRN PRN Administration NEEDED PER PROVIDER ORDERS Sodium Chloride 10 ml 12/07/23 01:00 12/08/23 08:06 Sodium Chloride Flush 0.9% 10 Ml Syringe IVP 10 ml 0100,0900,1700 SHERRIE Administration Sodium Phosphate 250 mg 12/08/23 08:00 12/08/23 08:05 Neutra-Phos 250 Mg Tablet PO 250 mg TIDWM SHERRIE Administration Trazodone HCl 25 mg 12/06/23 17:52 Trazodone 50 Mg Tablet PO QPM PRN Insomnia Objective - Vital Signs/Intake & Output Reviewed Vital Signs: Yes Vital Signs: Vital Signs x48h Temp Pulse Resp BP Pulse Ox O2 Flow Rate 12/08/23 08:00 36.4 C L 88 12 118/70 92 1 12/08/23 04:24 37.3 C 83 16 93/59 L 94 1 Intake & Output: Intake & Output 12/05/23 12/06/23 12/07/23 12/08/23 23:59 23:59 23:59 23:59 Intake Total 360 4187.5 1240 Output Total 0 1000 Balance 360 3187.5 1240 - Objective General Appearance: positive: Other (The patient is awake and alert but looks as if she feels quite poorly and is quite weak. She is receiving oxygen via nasal cannula) ENT: positive: Other (She has severe bitemporal muscle wasting bilaterally. Oral mucosa somewhat tacky) Neck: positive: Nml inspection Respiratory: positive: Chest non-tender, No respiratory distress, Other (Poor effort. She seems to be diminished in the lower bases but otherwise her lungs sound fairly clear) Cardiovascular: positive: Regular rate & rhythm, No murmur, No gallop. negative: Friction rub Abdomen: positive: Non-tender, No organomegaly, Nml bowel sounds Skin: positive: Color nml, No rash Extremities: positive: Other (Severe muscle wasting and fat loss throughout all 4 extremities) Neurologic/Psychiatric: positive: CN's nml (2-12), Other (The patient appears to be alert and oriented. She knows she is in the hospital and that she is sick and she knows her name. However she is quite confused as to her whole overall situation) - Lab Results Fish Bones: 12/08/23 07:54 12/08/23 07:54 Other Labs: Lab Results x24hrs 12/08/23 12/08/23 12/08/23 Range/Units 07:54 07:54 07:54 WBC (4.8-10.8) x10^3/uL RBC (4.20-5.40) 10^6/uL Hgb (12.0-16.0) g/dL Hct (37.0-47.0) % MCV (81.0-99.0) fL MCH (27.0-31.0) pg MCHC (32.0-36.0) g/dL RDW (12.0-15.0) % Plt Count (130-450) 10^3/uL MPV (7.9-10.8) fL Neut # (Auto) (1.5-6.6) 10^3/uL Lymph # (Auto) (1.5-3.5) 10^3/uL [place] # (Auto) (0.0-1.0) 10^3/uL Eos # (Auto) (0.0-0.7) 10^3/uL Baso # (Auto) (0.0-0.1) 10^3/uL Absolute Nucleated RBC x10^3/uL Nucleated RBC % /100WBC Sodium 140 (135-145) mmol/L Potassium 3.7 (3.5-4.5) mmol/L Chloride 109 (101-111) mmol/L Carbon Dioxide 30 (21-32) mmol/L Anion Gap 1.0 L (6-13) BUN 26 H (6-20) mg/dL Creatinine 0.2 L (0.6-1.3) mg/dL Estimated GFR (MDRD) 345 (>89) Glucose 103 (74-104) mg/dL Lactic Acid 0.4 L (0.5-2.2) mmol/L Calcium 8.2 L (8.5-10.3) mg/dL Phosphorus 2.0 L (2.5-5.0) mg/dL Magnesium 1.7 (1.7-2.3) mg/dL Albumin 2.8 L (3.2-5.5) g/dL Procalcitonin Immunoas 0.15 (<0.5) ng/mL Nasal Screen MRSA (PCR) (NEGATIVE) 12/08/23 12/07/23 Range/Units 07:54 22:10 WBC 9.0 (4.8-10.8) x10^3/uL RBC 3.49 L (4.20-5.40) 10^6/uL Hgb 11.8 L (12.0-16.0) g/dL Hct 38.6 (37.0-47.0) % MCV 110.6 H (81.0-99.0) fL MCH 33.8 H (27.0-31.0) pg MCHC 30.6 L (32.0-36.0) g/dL RDW 17.2 H (12.0-15.0) % Plt Count 267 (130-450) 10^3/uL MPV 9.1 (7.9-10.8) fL Neut # (Auto) 7.7 H (1.5-6.6) 10^3/uL Lymph # (Auto) 0.4 L (1.5-3.5) 10^3/uL [place] # (Auto) 0.3 (0.0-1.0) 10^3/uL Eos # (Auto) 0.6 (0.0-0.7) 10^3/uL Baso # (Auto) 0.0 (0.0-0.1) 10^3/uL Absolute Nucleated RBC 0.00 x10^3/uL Nucleated RBC % 0.0 /100WBC Sodium (135-145) mmol/L Potassium (3.5-4.5) mmol/L Chloride (101-111) mmol/L Carbon Dioxide (21-32) mmol/L Anion Gap (6-13) BUN (6-20) mg/dL Creatinine (0.6-1.3) mg/dL Estimated GFR (MDRD) (>89) Glucose (74-104) mg/dL Lactic Acid (0.5-2.2) mmol/L Calcium (8.5-10.3) mg/dL Phosphorus (2.5-5.0) mg/dL Magnesium (1.7-2.3) mg/dL Albumin (3.2-5.5) g/dL Procalcitonin Immunoas (<0.5) ng/mL Nasal Screen MRSA (PCR) NEGATIVE (NEGATIVE) ABX Reporting Has patient been on IV antibiotics over the past 48 hours?: Yes Sepsis Event Note (H) - Evaluation Current Stage of Sepsis: Sepsis Possible source of Sepsis: positive: Pulmonary - Sepsis Criteria Sepsis Criteria: Recorded Temperature greater than 38.3C or Less than 36C, SBP drop more than 40mHg, MAP less than 65 mmHg, Renal: urine output less than 0.5ml/kg/hr for 2 hours or creatinine gr Assessment/Plan - Problem List (1) Acute hypoxic respiratory failure Impression: The patient still is hypoxic. When her oxygen is taken off she drops quickly into the mid 80s. Continue oxygen support as needed. I am going to obtain a CTA of the chest today for further evaluation. (2) Pneumonia Impression: The patient had evidence of pneumonia on initial x-ray. She was initially started on IV ceftriaxone and doxycycline. After spiking a high fever and becoming hypotensive yesterday she was given a dose of IV vancomycin. The ceftriaxone was changed to cefepime and she continue doxycycline. Her MRSA swab is negative. We will hold vancomycin today and continue cefepime and doxycycline for now Will obtain a CTA of the chest today to rule out pulmonary embolism and also to see if there is been any changes to the external compression of her esophagus. Qualifiers: Pneumonia type: due to unspecified organism Laterality: right Lung location: lower lobe of lung Qualified Code(s): J18.9 - Pneumonia, unspecified organism (3) Sepsis Impression: The patient had evidence of sepsis yesterday. She became quite hypotensive requiring fluid boluses. She spiked a high fever. Since that time she has been feeling extremely poorly. She has been nauseated she has not wanted to eat. She remains hypoxic. At this point this is presumed pending sepsis. I am going to get a CTA of her chest to rule out other etiologies. (4) Paroxysmal atrial fibrillation Impression: We will keep the patient on telemetry. She has a history of atrial fibrillation with RVR when septic. Currently in a sinus rhythm and rate controlled (5) Kyphoscoliosis deformity of spine Impression: She has severe kyphosis and scoliosis. This could be contributing to her persistent hypoxia. She may need oxygen at discharge. (6) Esophageal stricture Impression: CT angiography of the chest will be ordered to evaluate this again. (7) OCD (obsessive compulsive disorder) Impression: The patient clearly has some underlying psychiatric issues and may have some signs of early dementia. She does not seem to have any insight into her situation. She seems to be better than she was when she initially presented to the hospital in July. However she still refuses medical care. She refuses to go to an outpatient physician. She exhibits paranoia especially against her . She says the only doctor that she trusts is a TV personality based out of [place] and that if she can get into see him she would go see him but otherwise has no interest in seeing any doctors. We discussed hospice and she is very suspicious that we are trying to send her home to . She will continue citalopram 10 mg daily for now. (8) Severe protein-calorie malnutrition Impression: She is profoundly malnourished with a BMI of 15.3. Continue supplements and vitamins as recommended by the dietitian. She has no appetite and is nauseated today. Diet as tolerated at this point. (9) Sarcopenia Impression: The patient is profoundly weak. She is largely bedbound but her says he does pick her up and put her in a wheelchair most days. She is extremely cachectic. Hospice saw the patient yesterday and the patient is unsure how she would like to proceed. She is a DNR so we are going to continue treating her pneumonia and sepsis for now. Further discussions need to be had with the patient and . Our social workers are going to reach out to the and have further discussions about possible disposition home with hospice at discharge. Disposition: Inpatient hospitalization remains necessary. The patient has clinically worsened since yesterday. She is requiring broad-spectrum IV antibiotics. She is also requiring IV fluids to support her blood pressure. Timing of disposition will be determined by her clinical course and ultimately with the family wants to do regarding hospice. If they make a decision to go home with hospice we could send her home whenever they are ready but I get the impression that the patient wants to be treated for at least this acute illness. Time spent: 35 minutes
[2023-12-08] MEDS ORDERED: iohexoL-300 100 ML VIAL ONE ×2 (13:39→14:25)
--- NOTE | 2023-12-08 16:55 | CT Report ---
PROCEDURE: Angio Chest INDICATIONS: PNA, r/o PE, evaluate esophagus CONTRAST: omni, 100 TECHNIQUE: After the administration of intravenous contrast, 2 mm axial images were acquired from the pulmonary apices to the posterior costophrenic angles during the arterial phase. In addition, 1 mm lung kernel and 5 mm soft tissue kernel reconstructions were performed. 3-dimensional coronal oblique maximum int ensity projection (MIP) reformats, 8 mm axial MIP, and 5 mm coronal and sagittal MPR reformats were t hen performed through the thorax. For radiation dose reduction, the following was used: automated exp osure control, adjustment of mA and/or kV according to patient size. COMPARISON: CT chest with contrast dated 07/12/2023. FINDINGS: Image quality: Excellent. Large vessels: Normal caliber aorta. No pulmonary emboli. Apparent acute extravasation in the esophag us.. Lungs and pleura: Small bilateral pleural effusions and minimal bibasilar compressive atelectasis. No airspace consolidation. No suspicious pulmonary nodules which require follow up. Mediastinum: Heart size is normal. No pericardial effusion. No large vessel abnormality. No mediastin al adenopathy by size criteria. There appears to be a probable metallic foreign body in the esophagus and there is material within the esophagus which is isodense to the aorta and pulmonary arteries sug gesting acute hemorrhage within the esophagus. Chest wall and lower neck: Thyroid is unremarkable. No axillary or supraclavicular adenopathy by size . Bones: No aggressive osseous abnormality. Stable scoliotic curvature. Upper Abdomen: Unremarkable. IMPRESSION: 1. No acute pulmonary emboli. Unremarkable aorta. 2. There appears to be a metallic foreign body in the esophagus. There also appears to be acute hemor rhage within the esophagus. This is right at the level of the presumed metallic foreign body which is perpendicular to the esophagus. 3. Small bilateral pleural effusions and bibasilar atelectasis. Above discussed with Kika Johnson PA-C at the time of dictation on 12/08/2023 at 1651 hours. Reviewed by: Huey Carr MD on 12/08/2023 4:54 PM PDT Approved by: Huey Carr MD on 12/08/2023 4:54 PM PDT Station ID: [id number]
[2023-12-08] MEDS ORDERED: ACETAMINOPHEN 1,000 MG/100 ML 1,000 MG/100 ML BAG IV PRN (18:02)
[2023-12-08] MEDS: iohexoL-300 100 ML VIAL IVP ONE (18:27)
[2023-12-09] MEDS ORDERED: ACETAMINOPHEN 1,000 MG/100 ML 1,000 MG/100 ML BAG IV PRN (08:08)
--- NOTE | 2023-12-09 12:14 | PROVIDER PROGRESS NOTE ---
Subjective - Prog Note Date Prog Note Date: 12/09/23 Prog Note Time: 12:15 - Subjective Pt reports feeling: No change Subjective: The patient has had waxing and waning mental status changes overnight. She refused her labs this morning and refused her IV antibiotics overnight but did allow the nurse to hang at this morning. When I saw her earlier today she says that she will be compliant with her medications but really does not want to have lab draws unless absolutely necessary. I asked her whether she wanted us to look into the foreign body that is in her esophagus and she is agreeable to see general surgery but indicated she would not want to be transferred to another facility. I spent quite some time discussing this with the patient's he would like a surgical opinion as to whether she is even a candidate for endoscopy or whether this foreign body can be reached via endoscopy. If surgery does not believe she is a candidate then this would be more of a reason to pursue a palliative care approach at discharge and get hospice set up. The patient continues to deny swallowing anything or choking on anything during this hospitalization. She tells me that everything that I have done to get her better is not working. A good review of systems could not be obtained. Nursing staff reports that she has drank a little juice and broth this morning but otherwise her appetite continues to be extremely poor. Current Medications - Current Medications Current Medications: Active Medications Generic Name Dose Route Start Last Admin Trade Name Freq PRN Reason Stop Dose Admin Enoxaparin Sodium 40 mg 12/07/23 09:00 12/09/23 08:22 Enoxaparin 40 Mg/0.4 Ml Syringe SUBQ Not Given DAILY SHERRIE Doxycycline Hyclate 100 mg/ 100 mls @ 100 mls/hr 12/06/23 22:00 12/09/23 09:51 Sodium Chloride IV 100 mls/hr Q12H SHERRIE Administration Cefepime HCl 2 gm/ Sodium 100 mls @ 200 mls/hr 12/07/23 17:00 12/09/23 08:47 Chloride IV Infused BID SHERRIE Infusion Sodium Chloride 1,000 mls @ 100 mls/hr 12/08/23 02:00 12/08/23 22:32 Normal Saline 0.9% IV Infused .Q10H SHERRIE Infusion Acetaminophen 1,000 mg in 100 mls @ 400 mls/hr 12/08/23 18:02 Acetaminophen IV Q6HR PRN FEVER > 100.5 F Acetaminophen 1,000 mg in 100 mls @ 400 mls/hr 12/09/23 08:08 Acetaminophen IV Q6HR PRN Moderate Pain (Level 4-6) Ondansetron HCl 4 mg 12/06/23 17:48 12/08/23 08:08 Ondansetron 4 Mg/2 Ml Vial IVP 4 mg Q6HR PRN Administration Nausea / Vomiting Sodium Chloride 10 ml 12/06/23 17:48 12/07/23 22:23 Sodium Chloride Flush 0.9% 10 Ml Syringe IVP 10 ml PRN PRN Administration NEEDED PER PROVIDER ORDERS Sodium Chloride 10 ml 12/07/23 01:00 12/09/23 08:22 Sodium Chloride Flush 0.9% 10 Ml Syringe IVP 10 ml 0100,0900,1700 SHERRIE Administration Objective - Vital Signs/Intake & Output Vital Signs: Vital Signs x48h Temp Pulse Resp BP Pulse Ox O2 Flow Rate 12/09/23 08:50 1 12/09/23 08:01 38.4 C H 85 16 127/73 93 1 12/09/23 07:05 93 1 12/09/23 07:00 87 L 12/09/23 05:05 37.9 C 85 18 112/65 93 1 Intake & Output: Intake & Output 12/06/23 12/07/23 12/08/23 12/09/23 23:59 23:59 23:59 23:59 Intake Total 360 4187.5 4716.667 820 Output Total 0 1000 100 Balance 360 3187.5 4616.667 820 - Objective General Appearance: positive: Other (The patient appears to be quite weak. I have seen the patient twice today. 1 time she was somewhat lethargic and only alert and oriented x 2. The other time she was alert and oriented x 3 and answers questions fairly appropriately. She does exhibit some paranoid behaviors.) ENT: positive: Other (Severe bitemporal muscle wasting bilaterally) Respiratory: positive: Other (Severe kyphosis. Poor effort. She is diminished in the lower bases bilaterally but otherwise her lungs sound fairly clear anteriorly) Cardiovascular: positive: Regular rate & rhythm, No murmur, No gallop, Friction rub Abdomen: positive: Non-tender, Other (Hypoactive bowel sounds) Skin: positive: Other (She has some worsening erythema on her lower extremities bilaterally. She has a scab on her right lower ankle that has healed over but apparently been there for some time. Significant venous stasis changes.) Extremities: positive: Other (Muscle wasting and fat loss throughout all 4 extremities. Both feet are somewhat contracted.) Neurologic/Psychiatric: positive: Other (Waxing and waning mental status. She exhibits paranoid behaviors at times.) - Lab Results Fish Bones: 12/08/23 07:54 12/08/23 07:54 ABX Reporting Has patient been on IV antibiotics over the past 48 hours?: Yes Sepsis Event Note (H) - Evaluation Current Stage of Sepsis: Sepsis Possible source of Sepsis: positive: Pulmonary - Sepsis Criteria Sepsis Criteria: Recorded Temperature greater than 38.3C or Less than 36C, SBP drop more than 40mHg, MAP less than 65 mmHg, Renal: urine output less than 0.5ml/kg/hr for 2 hours or creatinine gr Assessment/Plan - Problem List (1) Acute hypoxic respiratory failure Impression: Initially this was felt to be due to pneumonia. She may be developing some chronic respiratory failure due to the severity of her kyphosis. CT of the chest yesterday was not impressive for significant pneumonia. She is requiring 1 L of oxygen but if you take this off she quickly drops into the mid 80s. She likely will need to go home with oxygen. (2) Foreign body (FB) in soft tissue Impression: The patient had a CT angiography yesterday which revealed a foreign body in the esophagus with evidence of hemorrhage. Unfortunately the patient did not let me draw labs this morning. After long discussion with the patient and her Dr. Marks from general surgery has been consulted to look at her scans and make recommendations. She is not very compliant, extremely frail with severe kyphosis. I am not sure whether she would even be a candidate for upper endoscopy but we are going to get the opinion from the surgeon. (3) Sepsis Impression: The patient did develop signs of sepsis with hypotension requiring fluid boluses and spiking of high fevers. This could be due to developing cellulitis in her lower extremities, less likely due to pneumonia. She also has a foreign body in her esophagus. There was no inflammatory changes to suggest mediastinitis but cannot rule this out. In any event she will continue broad-spectrum antibiotics as outlined above. (4) Pneumonia Impression: The patient is on IV cefepime and doxycycline. She tested negative for MRSA. She received a dose of vancomycin but this was stopped due to the negative MRSA test. The patient is not coughing or significantly short of breath. CT of the chest is unremarkable. She may have had a mild pneumonia on admission but seems to be improving Qualifiers: Pneumonia type: due to unspecified organism Laterality: right Lung location: lower lobe of lung Qualified Code(s): J18.9 - Pneumonia, unspecified organism (5) Paroxysmal atrial fibrillation Impression: Currently in a sinus rhythm and rate controlled. She does have a history of A-fib with RVR in the past. (6) Kyphoscoliosis deformity of spine Impression: She has severe deformity. Supportive care (7) Esophageal stricture Impression: This was noted during her previous hospitalization and it was felt that it was due to external compression due to her severe kyphosis. CT angiography yesterday did not really comment on this. Stable (8) OCD (obsessive compulsive disorder) Impression: The patient does not follow with any outpatient doctors. She has a TV doctor that she would like to get into see but has had no luck. She is on citalopram 10 mg daily which will be continued. She does exhibit some paranoid behaviors (9) Severe protein-calorie malnutrition Impression: She is profoundly malnourished. Not eating or drinking enough to sustain herself at this point. I have stopped her supplements ordered by the dietitian as she was refusing them all and we are not sure whether she should swallow pills at this point with the foreign body and hemorrhage in her esophagus. She has been refusing medications. She is tolerating a clear liquid diet and is drinking some juice and broth at times (10) Sarcopenia Impression: The patient has muscle wasting and fat loss throughout her body. She is profoundly cachectic. She has severe kyphosis. She is bedbound although her does pick her up and put her in a wheelchair daily. Goals of care continued to be discussed. She is a DNR. She is resistant to hospice as she associates it with immediately dying. General surgery is going to see the patient. If he does not think she is a candidate for any sort of intervention then likely the best option would be to transition to palliative care/ and get the patient home which is what she wants. Her will need some assistance at home with her whether it is paid caregivers coming into a system or hospice. Further discussions will be had after general surgery sees her. Disposition: Inpatient hospitalization remains necessary. The patient is still spiking fevers and requiring parenteral antibiotics. A decision will be made h opefully by the end of the day as to whether we are going to pursue possible endoscopy and further treatment. After general surgery sees the patient I am going to go back and talk to the patient and and hopefully will have a plan in place for disposition by the end of the day Time spent: 60 minutes
--- NOTE | 2023-12-09 12:54 | CONSULTATION NOTE ---
Surgery Consult - Admit Date Hospital Admission Date: 12/07/23 - Home Meds/Allergies Allergies/Adverse Reactions: Allergies Allergy/AdvReac Type Severity Reaction Status Date / Time Penicillins Allergy Rash Verified 12/06/23 13:04 - Vital Signs Vital Signs: Last Vital Signs Temp 101.1 F H 12/09/23 08:01 Pulse 85 12/09/23 08:01 Resp 16 12/09/23 08:01 BP 127/73 12/09/23 08:01 Pulse Ox 93 12/09/23 08:01 O2 Flow Rate 1 12/09/23 08:50 Intake & Output: Intake & Output 12/06/23 12/07/23 12/08/23 12/09/23 23:59 23:59 23:59 23:59 Intake Total 360 4187.5 4716.667 820 Output Total 0 1000 100 Balance 360 3187.5 4616.667 820 - Lab Results Result Diagrams: 12/08/23 07:54 12/08/23 07:54 - Consultation Note Consultation Note: General Surgery Consultation Note Patient examined, chart and images reviewed. I am requested to evaluate the patient for CT finding of an esophageal mass/metal object seen on CT. The patient denies chest pain, dysphagia, hematemesis, or melena. During an July 2023 admission, CT indicated what appeared to be extraluminal compression of the esophagus by her aorta. EGD was not performed at that time due to her being asymptomatic and also due to the severe angulation of her cervical spine, esophagus, and trachea which increased her risk of esophageal perforation and would make airway intubation extremely difficult (and possibly impossible) if needed during the time of endoscopy. She was recently admitted for management of hypoxic respiratory failure and pneumonia. At the time of my encounter, she was resting comfortably, she had no complaints of chest pain, SOB, melena, or hematemesis. She denies dysphagia and is swallowing her secretions without difficulty. She has severe dextroscoliosis; Lungs are clear; Heart NSR, Abd scaphoid I do not appreciate the finding of an ingested metallic foreign body in the esophagus on the 12/08/23 CTA. And the 12/06/23 CXR does not show mediastinal metal. What I see may be either active bleeding (yesterday) into the esophagus on the CTA or calcifications related to an esophageal neoplasm. Her abnormal anatomy due to the scoliosis makes accurate interpretation of the CT somewhat difficult. The patient has a history of poor compliance with medical recommendations. She is being considered for placement with Hospice and with palliative care intervention due to her frailty and failure to thrive. H&H today 11.8/38.6, not much different than 08/18/23 - 13.1/40.9 Assessment: CT findings of an intra-esophageal abnormality. I am not convinced that this is an ingested metal object. I think it may represent either active intraluminal bleeding (yesterday) or calcification of an esophageal mass (intra- luminal or extraluminal) that has been present since July. If she does have an esophageal neoplasm, she is not a candidate for surgical intervention due to her frailty and total protein-calorie malnutrition. If she does have an clinically occult but persistent UGI bleed (anemia requiring blood transfusions), therapeutic endoscopy would be considered but only after clearance from anesthesia. Recommendation: 1) As the patient does not demonstrate esophageal obstruction or the clinical sequela of an active UGI bleed, urgent EGD is not indicated. 2) If the results of an EGD would help in the overall management of this patient's current medical therapy, it can be considered during this admission. However, before EGD can be offered at this facility, pre-op evaluation by out anesthesia team regarding potential endotracheal intubation limitations due to her severe cervical scoliosis should be arranged. 3) MRI of the chest or UGI fluroscopy may better define the esophageal abnormality 4) I will discuss this with the Medical Hospitalist Service Omero Marks MD, [facility] General surgery Service
[2023-12-09] MEDS: ACETAMINOPHEN 325 MG TABLET PO PRN (14:16)
--- NOTE | 2023-12-09 14:44 | ADVANCE CARE PLANNING NOTE ---
Advance Care Planning - Planning Encounter Date: 12/09/23 Time: 14:25 Purpose: Discuss goals of care Parties in Attendance: The patient and Omar Rosado - Diagnosis for Encounter (4) Pneumonia Qualifiers: Pneumonia type: due to unspecified organism Laterality: right Lung location: lower lobe of lung Qualified Code(s): J18.9 - Pneumonia, unspecified organism - Encounter Subjective/Patient's Story: The patient is a 78-year-old female who has received very little medical care in her life. She was hospitalized in July with cellulitis in her lower extremities after not taking her socks off for over a year. She was found to be in very poor shape. She has severe kyphosis and imaging studies revealed an extrinsic possible of esophageal mass. It was unclear exactly what this was at the time and there was some thought that it could be her aorta compressing the esophagus versus a mass. It was not felt that she was a candidate for endoscopy at that time. She presented to the emergency room for this hospitalization with lethargy and hypoxia. She was found to have a possible right lower lobe infiltrate and was admitted for IV antibiotics and oxygen support. Initially she was doing well but then took a turn for the worse and became hypotensive and started spiking high fevers. Antibiotic therapy was broadened but in spite of this she continues to spike high fevers. Her blood pressure is not stable. Yesterday she had a CT angiography of the chest which revealed a possible foreign body in the esophagus with possible acute hemorrhage. General surgery evaluated the patient today and reviewed the imaging. He feels that this is a calcification within a possible esophageal mass. He felt that it would be quite dangerous to perform an endoscopy and we would need to have anesthesia on board. The question is whether the risk of performing an endoscopy is going to yield any benefit as she clearly is not a candidate for any treatment. The patient is profoundly cachectic. She refuses any outpatient medical care. She does not have a primary doctor and has a TV personality that she follows. During this hospitalization her appetite is poor. She is eating very little. She has refused blood draws and medications. She is somewhat suspicious and exhibits some paranoid behaviors at times. Goals of Care: We have been discussing the plan of care for several days. The patient is a DO NOT RESUSCITATE. The patient has been offered palliative care and hospice at discharge. She is quite suspicious of this and thinks that if we send her home with hospice we are just going to let her . She has been reluctant to take that step. Over the course of this hospitalization she has waxing and waning mentation. Sometimes she is alert and oriented and other times she is not. Overall my impression is that she is unable at this time whether it is for psychiatric reasons or due to her underlying infection or possible dementia to make an informed decision regarding her medical care. Certainly she tells me that she does not want lab draws. She does not want medications. She wants to go home but does not want hospice at home. She does not want to follow with a doctor but she wants to get well. She does not have very realistic expectations or understanding of her whole situation. The patient is bedbound. Her feet are contracted. Her does pick her up at times to get into a wheelchair but she is largely bedbound. BMI is 15.3 and it appears that she has an underlying malignancy. She is an ECOG 4 and would not be a candidate for any sort of oncologic treatment going forward placing her in a palliative care category. Additional Discussion: General surgery made the recommendations today. If we were going to aggressively work this up she would need an MRI, barium swallow and possible biopsy. But again if we did find out this mass is cancerous she is not a candidate for any sort of systemic treatment and certainly radiation to the esophagus would be extremely difficult. I spoke to the patient's on the phone this afternoon. At this point he has made the decision to take her home with hospice services. The patient wants to get an appointment with her TV doctor and says that she is working on this and has sent him an email. Certainly if she actually got an appointment set up with him this could be revisited but for now the patient and the needs help in the home. The patient does not like being in the hospital. She does not like lab draws. She does not want to take medications and certainly would benefit from the palliative care approach going forward. I have asked the discharge planners to set up hospice and we will discharge her home as soon as all of this has been set up. In the meantime she will continue IV antibiotics and IV fluids as she allows for the rest of this hospitalization Code Status: Do Not Attempt Resuscitation Time spent on advance care planning: > 60 minutes
[2023-12-09] MEDS ORDERED: MORPHINE 2 MG/ML CARPUJECT IVP PRN (15:56)
[2023-12-09] MEDS ORDERED: HALOPERIDOL 5 MG/ML VIAL IVP PRN (15:57)
[2023-12-09] MEDS: HYDROcod/ACETAM 5/325 MG TABLET PO PRN (16:07)
[2023-12-10 06:11] LABS: BASOPHILS % (AUTO) 0.3 %; EOSINOPHILS # (AUTO) 0.8 10^3/uL (0.0-0.7); EOSINOPHILS % (AUTO) 9.7 %; HCT - HEMATOCRIT 37.3 % (37.0-47.0); HGB - HEMOGLOBIN 11.7 g/dL (12.0-16.0); LYMPHOCYTES # (AUTO) 0.3 10^3/uL (1.5-3.5); LYMPHOCYTES % (AUTO) 2.9 %; MEAN CORPUSCULAR HEMOGLOBIN 35.2 pg (27.0-31.0); MEAN CORPUSCULAR HGB CONC 31.4 g/dL (32.0-36.0); MEAN CORPUSCULAR VOLUME 112.3 fL (81.0-99.0); MEAN PLATELET VOLUME 9.9 fL (7.9-10.8); MONOCYTES # (AUTO) 0.4 10^3/uL (0.0-1.0); MONOCYTES % (AUTO) 4.6 %; NEUTROPHILS % (AUTO) 80.9 %; PLT - PLATELET COUNT 246 10^3/uL (130-450); RED BLOOD COUNT 3.32 10^6/uL (4.20-5.40); RED CELL DISTRIBUTION WIDTH 16.8 % (12.0-15.0); WHITE BLOOD COUNT 8.6 x10^3/uL (4.8-10.8)
[2023-12-10 06:15] LABS: SLIDE REVIEW? Indicated
[2023-12-10 06:20] LABS: MAGNESIUM 1.6 mg/dL (1.7-2.3)
[2023-12-10 06:25] LABS: PHOSPHORUS 1.6 mg/dL (2.5-5.0)
[2023-12-10 06:51] LABS: CALCIUM 9.1 mg/dL (8.5-10.3); CREATININE 0.2 mg/dL (0.6-1.3); POTASSIUM 3.9 mmol/L (3.5-4.5)
[2023-12-10 06:54] LABS: PLATELET ESTIMATE, MANUAL NORMAL (130-450,000) (NORMAL); PLATELET MORPHOLOGY NORMAL APPEARANCE (NORMAL); RBC MORPHOLOGY (MULTIPLE) 2+ MACROCYTOSIS (NORMAL); WBC MORPHOLOGY (MULTIPLE) NORMAL APPEARANCE (NORMAL)
[2023-12-10] MEDS ORDERED: MAGNESIUM SULFATE 2 GM in SODIUM CHLORIDE 0.9% 50 ML IV ONE (07:57)
[2023-12-10] MEDS ORDERED: POTASSIUM PHOSPHATE 21 MMOL in SODIUM CHLORIDE 0.9% 250 ML IV ONE (07:57)
[2023-12-10] MEDS: MAGNESIUM SULFATE 2 GRAM 2 GM/50 ML BAG IV ONE (08:59)
[2023-12-10] MEDS: POTASSIUM PHOSPHATE 15 MMOL in SODIUM CHLORIDE 0.9% 250 ML IV ONE (11:06)
--- NOTE | 2023-12-10 11:14 | PROVIDER PROGRESS NOTE ---
Subjective - Prog Note Date Prog Note Date: 12/10/23 Prog Note Time: 11:15 - Subjective Pt reports feeling: No change Subjective: The patient is awake and alert today. She is quite suspicious of all the staff and myself. I told her that we were trying to set up help at home and would hopefully get her home tomorrow. She told me that I was lying and that she was not going to be alive tomorrow morning. We discussed this but she was insistent that she would not be alive tomorrow morning and that I am lying to her about going home. Clearly a good review of systems could not be obtained. The patient did allow us to draw labs this morning. She has some electrolyte abnormalities that initially I was going to replete today. However the nursing staff just reported to me that she has pulled off her remote monitor and pulled out her IV and is refusing medications. Her was not present at the bedside. Current Medications - Current Medications Current Medications: Active Medications Generic Name Dose Route Start Last Admin Trade Name Freq PRN Reason Stop Dose Admin Acetaminophen 650 mg 12/09/23 14:01 12/10/23 03:56 Acetaminophen 325 Mg Tablet PO 650 mg Q4HR PRN Administration Pain or Fever > 38C (100.4F) Hydrocodone Bitart/Acetaminophen 1 tab 12/09/23 15:55 12/09/23 16:07 Hydrocod/Acetam 5/325 Mg Tablet PO 1 tab Q4HR PRN Administration Moderate Pain (Level 4-6) Haloperidol 1 mg 12/09/23 15:57 Haloperidol 5 Mg/Ml Vial IVP Q6H PRN Agitation Doxycycline Hyclate 100 mg/ 100 mls @ 100 mls/hr 12/06/23 22:00 12/10/23 09:02 Sodium Chloride IV 100 mls/hr Q12H SHERRIE Administration Cefepime HCl 2 gm/ Sodium 100 mls @ 200 mls/hr 12/07/23 17:00 12/10/23 08:53 Chloride IV 200 mls/hr BID SHERRIE Administration Sodium Chloride 1,000 mls @ 100 mls/hr 12/08/23 02:00 12/10/23 11:05 Normal Saline 0.9% IV Not Given .Q10H SHERRIE Acetaminophen 1,000 mg in 100 mls @ 400 mls/hr 12/08/23 18:02 Acetaminophen IV Q6HR PRN FEVER > 100.5 F Acetaminophen 1,000 mg in 100 mls @ 400 mls/hr 12/09/23 08:08 Acetaminophen IV Q6HR PRN Moderate Pain (Level 4-6) Potassium Phosphate 15 mmol/ 255 mls @ 64 mls/hr 12/10/23 09:00 12/10/23 11:06 Sodium Chloride IV 12/10/23 12:59 Not Given ONCE ONE Morphine Sulfate 2 mg 12/09/23 15:56 Morphine 2 Mg/Ml Carpuject IVP Q4H PRN Severe Pain (Level 7-10) Ondansetron HCl 4 mg 12/06/23 17:48 12/08/23 08:08 Ondansetron 4 Mg/2 Ml Vial IVP 4 mg Q6HR PRN Administration Nausea / Vomiting Sodium Chloride 10 ml 12/06/23 17:48 12/07/23 22:23 Sodium Chloride Flush 0.9% 10 Ml Syringe IVP 10 ml PRN PRN Administration NEEDED PER PROVIDER ORDERS Sodium Chloride 10 ml 12/07/23 01:00 12/10/23 11:06 Sodium Chloride Flush 0.9% 10 Ml Syringe IVP Not Given 0100,0900,1700 SHERRIE Objective - Vital Signs/Intake & Output Reviewed Vital Signs: Yes Vital Signs: Vital Signs x48h Temp Pulse Resp BP BP Pulse Ox O2 Flow Rate 12/10/23 07:43 37.0 C 86 14 114/68 94 1 12/10/23 07:00 1 12/10/23 05:28 37.8 C 12/10/23 03:50 38.2 C H 90 14 120/73 93 1 Intake & Output: Intake & Output 12/07/23 12/08/23 12/09/23 12/10/23 23:59 23:59 23:59 23:59 Intake Total 4187.5 4716.667 1940 1351.667 Output Total 1000 100 450 275 Balance 3187.5 4616.667 1490 1076.667 - Objective General Appearance: positive: Other (The patient is exhibiting paranoid behaviors this morning. She is awake and alert) ENT: positive: Other (Severe bitemporal muscle wasting bilaterally) Respiratory: positive: Chest non-tender, No respiratory distress, Breath sounds nml (She would not cooperate for an exam but her lungs sound fairly clear but diminished in the lower bases bilaterally) Cardiovascular: positive: Regular rate & rhythm, No murmur, No gallop. negative: Friction rub Abdomen: positive: Non-tender, No organomegaly Skin: positive: Color nml, No rash, Warm, Dry Extremities: positive: Other (Severe muscle wasting and fat loss throughout all 4 extremities) Neurologic/Psychiatric: positive: Other - Lab Results Fish Bones: 12/10/23 04:33 12/10/23 04:33 Other Labs: Lab Results x24hrs 12/10/23 12/10/23 Range/Units 04:33 04:33 WBC 8.6 (4.8-10.8) x10^3/uL RBC 3.32 L (4.20-5.40) 10^6/uL Hgb 11.7 L (12.0-16.0) g/dL Hct 37.3 (37.0-47.0) % MCV 112.3 H (81.0-99.0) fL MCH 35.2 H (27.0-31.0) pg MCHC 31.4 L (32.0-36.0) g/dL RDW 16.8 H (12.0-15.0) % Plt Count 246 (130-450) 10^3/uL MPV 9.9 (7.9-10.8) fL Neut # (Auto) 7.0 H (1.5-6.6) 10^3/uL Lymph # (Auto) 0.3 L (1.5-3.5) 10^3/uL [place] # (Auto) 0.4 (0.0-1.0) 10^3/uL Eos # (Auto) 0.8 H (0.0-0.7) 10^3/uL Baso # (Auto) 0.0 (0.0-0.1) 10^3/uL Absolute Nucleated RBC 0.00 x10^3/uL Nucleated RBC % 0.0 /100WBC Manual Slide Review Indicated WBC Morphology NORMAL APPEARANCE (NORMAL) Platelet Estimate NORMAL (130-450,000) (NORMAL) Platelet Morphology NORMAL APPEARANCE (NORMAL) RBC Morph Micro Appear 2+ MACROCYTOSIS (NORMAL) Sodium 137 (135-145) mmol/L Potassium 3.9 (3.5-4.5) mmol/L Chloride 105 (101-111) mmol/L Carbon Dioxide 30 (21-32) mmol/L Anion Gap 2.0 L (6-13) BUN 20 (6-20) mg/dL Creatinine 0.2 L (0.6-1.3) mg/dL Estimated GFR (MDRD) 345 (>89) Glucose 98 (74-104) mg/dL Calcium 9.1 (8.5-10.3) mg/dL Phosphorus 1.6 L (2.5-5.0) mg/dL Magnesium 1.6 L (1.7-2.3) mg/dL Albumin 3.0 L (3.2-5.5) g/dL ABX Reporting Has patient been on IV antibiotics over the past 48 hours?: Yes Sepsis Event Note (H) - Evaluation Current Stage of Sepsis: Sepsis Possible source of Sepsis: positive: Pulmonary - Sepsis Criteria Sepsis Criteria: Recorded Temperature greater than 38.3C or Less than 36C, SBP drop more than 40mHg, MAP less than 65 mmHg, Renal: urine output less than 0.5ml/kg/hr for 2 hours or creatinine gr Assessment/Plan - Problem List (1) Acute hypoxic respiratory failure Impression: The patient still is requiring oxygen. She will need oxygen at home at discharge. Her pneumonia has been adequately treated. I believe she has reduced lung capacity due to her severe kyphosis and will need ongoing oxygen at home. (2) Esophageal mass Impression: General surgery felt that she likely has an esophageal mass. After discussion with surgery and the patient's we are not going to pursue endoscopy due to the severe risks and also the fact that if she has a malignancy she is not a candidate for any sort of systemic therapy or treatment. She is an ECOG 4. She is largely bedbound. She no longer ambulates. She is profoundly cachectic and not a candidate for any aggressive workup. (3) Sepsis Impression: Likely multifactorial in nature. The patient had evidence of an early pneumonia at the time of admission. She also has a process going on in her esophagus with some bleeding that could be causing problems. Also nursing staff just reported that she had a wound that I am going to go back and look at. She has been on broad-spectrum IV antibiotics with little improvement. Today the patient pulled out her IV and is refusing all medications. IV antibiotics have been stopped as she is going home with hospice. (4) Pneumonia Impression: IV antibiotics will be stopped today as she has pulled out her IV and is refusing all medications. No further treatment. The patient will be going home with hospice. Qualifiers: Pneumonia type: due to unspecified organism Laterality: right Lung location: lower lobe of lung Qualified Code(s): J18.9 - Pneumonia, unspecified organism (5) Paroxysmal atrial fibrillation Impression: The patient has largely remained in a sinus rhythm during this hospitalization. She pulled off her remote monitor today as well. No further monitoring of her heart rate. (6) Kyphoscoliosis deformity of spine Impression: Supportive care. This is quite severe (7) OCD (obsessive compulsive disorder) Impression: The patient has the patient is exhibiting increasingly paranoid behaviors. She is refusing all treatment. At this point she has IM Haldol available should she become acutely agitated. She has hydrocodone and Roxanol available if needed for pain. (8) Severe protein-calorie malnutrition Impression: The patient is eating very little. She does occasionally drink some fluids. She refused all supplements and medications. I have stopped them at this point. At this point the patient is going on comfort measures. She can have pleasure feeds of what ever she wants at this point. (9) Sarcopenia Impression: The patient is bedbound at baseline. was previously getting her up to a wheelchair. She is going home with home hospice services. No aggressive workup. Disposition: Inpatient hospitalization remains necessary to get hospice set up. The patient is refusing all treatment at this point. Palliative care only going forward. I am not putting another IV in her and were not going to give any further IV medications. She has appropriate end-of-life medications available if needed. Time spent: 35 minutes
[2023-12-10] MEDS ORDERED: HALOPERIDOL 5 MG/ML VIAL IM PRN (11:17)
[2023-12-10] MEDS ORDERED: MORPHINE SOL 10 MG/0.5 ML ORAL SYRINGE PO PRN (11:18)
[2023-12-11 05:36] LABS: BASOPHILS % (AUTO) 0.5 %; EOSINOPHILS # (AUTO) 0.8 10^3/uL (0.0-0.7); EOSINOPHILS % (AUTO) 9.1 %; HCT - HEMATOCRIT 37.6 % (37.0-47.0); HGB - HEMOGLOBIN 11.7 g/dL (12.0-16.0); LYMPHOCYTES # (AUTO) 0.3 10^3/uL (1.5-3.5); LYMPHOCYTES % (AUTO) 3.1 %; MEAN CORPUSCULAR HEMOGLOBIN 33.7 pg (27.0-31.0); MEAN CORPUSCULAR HGB CONC 31.1 g/dL (32.0-36.0); MEAN CORPUSCULAR VOLUME 108.4 fL (81.0-99.0); MEAN PLATELET VOLUME 9.9 fL (7.9-10.8); MONOCYTES # (AUTO) 0.4 10^3/uL (0.0-1.0); MONOCYTES % (AUTO) 4.7 %; NEUTROPHILS # (AUTO) 6.9 10^3/uL (1.5-6.6); NEUTROPHILS % (AUTO) 81.2 %; PLT - PLATELET COUNT 257 10^3/uL (130-450); RED BLOOD COUNT 3.47 10^6/uL (4.20-5.40); RED CELL DISTRIBUTION WIDTH 15.3 % (12.0-15.0); WHITE BLOOD COUNT 8.5 x10^3/uL (4.8-10.8)
[2023-12-11 05:51] LABS: ALBUMIN 3.2 g/dL (3.2-5.5); BUN - BLOOD UREA NITROGEN 22 mg/dL (6-20); CALCIUM 8.9 mg/dL (8.5-10.3); CARBON DIOXIDE - CO2 31 mmol/L (21-32); CHLORIDE 100 mmol/L (101-111); CREATININE 0.2 mg/dL (0.6-1.3); GFR - MDRD 345 (>89); GLUCOSE 114 mg/dL (74-104); MAGNESIUM 1.7 mg/dL (1.7-2.3); POTASSIUM 3.7 mmol/L (3.5-4.5); SODIUM 135 mmol/L (135-145)
[2023-12-11 06:01] LABS: PHOSPHORUS < 1.0 mg/dL (2.5-5.0)
[2023-12-11] MEDS: NEUTRA-PHOS 250 MG TABLET PO SCH (09:11)
--- NOTE | 2023-12-11 10:09 | PROVIDER PROGRESS NOTE ---
Subjective - Prog Note Date Prog Note Date: 12/11/23 Prog Note Time: 10:10 - Subjective Subjective: The patient is a 78-year-old female who has received very little medical care in her life. She was hospitalized in July with cellulitis in her lower extremities after not taking her socks off for over a year. She was found to be in very poor shape. She has severe kyphosis and imaging studies revealed an extrinsic possible of esophageal mass. It was unclear exactly what this was at the time and there was some thought that it could be her aorta compressing the esophagus versus a mass. It was not felt that she was a candidate for endoscopy at that time. She presented to the emergency room for this hospitalization with lethargy and hypoxia. She was found to have a possible right lower lobe infiltrate and was admitted for IV antibiotics and oxygen support. Initially she was doing well but then took a turn for the worse and became hypotensive and started spiking high fevers. Antibiotic therapy was broadened but in spite of this she continued to spike high fevers. Her blood pressure is now stable. She eventually had a CT angiography of the chest which revealed a possible foreign body in the esophagus with possible acute hemorrhage. General surgery evaluated the patient and reviewed the imaging. He feels that this is a calcification within a possible esophageal mass. He felt that it would be quite dangerous to perform an endoscopy and we would need to have anesthesia on board. The question was whether the risk of performing an endoscopy is going to yield any benefit as she clearly is not a candidate for any treatment. The patient is profoundly cachectic. She refuses any outpatient medical care. She does not have a primary doctor and has a TV personality that she follows. During this hospitalization her appetite is poor. She is eating very little. She has refused blood draws and medications. She is somewhat suspicious and exhibits some paranoid behaviors at times. We have been discussing the plan of care for several days. The patient is a DO NOT RESUSCITATE. The patient has been offered palliative care and hospice at discharge. She is quite suspicious of this and thinks that if we send her home with hospice we are just going to let her . She has been reluctant to take that step. Over the course of this hospitalization she has waxing and waning mentation. Sometimes she is alert and oriented and other times she is not. Overall my impression is that she is unable at this time whether it is for psychiatric reasons or due to her underlying infection or possible dementia to make an informed decision regarding her medical care. Certainly she tells me that she does not want lab draws. She does not want medications. She wants to go home but does not want hospice at home. She does not want to follow with a doctor but she wants to get well. She does not have very realistic expectations or understanding of her whole situation. The patient is bedbound. Her feet are contracted. Her does pick her up at times to get into a wheelchair but she is largely bedbound. BMI is 15.3 and it appears that she has an underlying malignancy. She is an ECOG 4 and would not be a candidate for any sort of oncologic treatment going forward placing her in a palliative care category. After multiple discussions with the patient and her it is felt that the patient is not cognizant enough to make informed decisions for herself. The patient's has agreed to hospice services and she will be discharged tomorrow morning as soon as we get all of that set up. We are not going to use the word hospice around her as this causes her to get quite upset and increases her paranoia. I have told her at this point that we are setting up help in the home. Yesterday she pulled out her IV. She has refused most of her medications. She did allow her blood to be drawn this morning but it just depends what kind of mood she is and whether she will let us help or not. I am preparing a discharge plan and discharge summary today. An addendum can be added to these tomorrow morning and a discharge order will need to be placed. I am going to send her hospice medications to the pharmacy as well. Current Medications - Current Medications Current Medications: Active Medications Generic Name Dose Route Start Last Admin Trade Name Freq PRN Reason Stop Dose Admin Acetaminophen 650 mg 12/09/23 14:01 12/10/23 03:56 Acetaminophen 325 Mg Tablet PO 650 mg Q4HR PRN Administration Pain or Fever > 38C (100.4F) Hydrocodone Bitart/Acetaminophen 1 tab 12/09/23 15:55 12/09/23 16:07 Hydrocod/Acetam 5/325 Mg Tablet PO 1 tab Q4HR PRN Administration Moderate Pain (Level 4-6) Haloperidol 1 mg 12/10/23 11:17 Haloperidol 5 Mg/Ml Vial IM Q6H PRN Agitation Morphine Sulfate 10 mg 12/10/23 11:18 Morphine Carol 10 Mg/0.5 Ml Oral Syringe PO Q2HR PRN Severe Pain (Level 7-10) Sodium Phosphate 250 mg 12/11/23 08:00 12/11/23 09:11 Neutra-Phos 250 Mg Tablet PO 250 mg TIDWM SHERRIE Administration Objective - Vital Signs/Intake & Output Reviewed Vital Signs: Yes Vital Signs: Vital Signs x48h Temp Pulse Resp BP Pulse Ox O2 Flow Rate 12/11/23 09:28 90 L 1 12/11/23 09:24 38.2 C H 98 99 12/11/23 08:00 38.0 C H 113 H 16 148/99 H 93 2 Intake & Output: Intake & Output 12/08/23 12/09/23 12/10/23 12/11/23 23:59 23:59 23:59 23:59 Intake Total 4716.667 1940 3561.667 500 Output Total 100 450 275 Balance 4616.667 1490 3286.667 500 - Objective General Appearance: positive: Other (Severely cachectic. Quite suspicious of my motives at the time of my visit.) ENT: positive: Other (Severe bitemporal muscle wasting bilaterally) Respiratory: positive: Other (She will not cooperate for an exam but her lungs sound clear but diminished in the lower bases. This was an anterior exam) Cardiovascular: positive: Regular rate & rhythm, No murmur, No gallop. negative: Friction rub Abdomen: positive: Non-tender Skin: positive: Other (Severe muscle wasting and fat loss throughout all 4 extremities. Significant venous stasis changes to both of her lower extremities. Both feet are contracted. She has a healing scabbed over wound on her right ankle) Neurologic/Psychiatric: positive: Other (The patient is awake alert and oriented x 2. She thought her was this morning. She does not have any insight into her illness or situation.) - Lab Results Fish Bones: 12/11/23 04:20 12/11/23 04:20 Other Labs: Lab Results x24hrs 12/11/23 12/11/23 Range/Units 04:20 04:20 WBC 8.5 (4.8-10.8) x10^3/uL RBC 3.47 L (4.20-5.40) 10^6/uL Hgb 11.7 L (12.0-16.0) g/dL Hct 37.6 (37.0-47.0) % MCV 108.4 H (81.0-99.0) fL MCH 33.7 H (27.0-31.0) pg MCHC 31.1 L (32.0-36.0) g/dL RDW 15.3 H (12.0-15.0) % Plt Count 257 (130-450) 10^3/uL MPV 9.9 (7.9-10.8) fL Neut # (Auto) 6.9 H (1.5-6.6) 10^3/uL Lymph # (Auto) 0.3 L (1.5-3.5) 10^3/uL [place] # (Auto) 0.4 (0.0-1.0) 10^3/uL Eos # (Auto) 0.8 H (0.0-0.7) 10^3/uL Baso # (Auto) 0.0 (0.0-0.1) 10^3/uL Absolute Nucleated RBC 0.00 x10^3/uL Nucleated RBC % 0.0 /100WBC Sodium 135 (135-145) mmol/L Potassium 3.7 (3.5-4.5) mmol/L Chloride 100 L (101-111) mmol/L Carbon Dioxide 31 (21-32) mmol/L Anion Gap 4.0 L (6-13) BUN 22 H (6-20) mg/dL Creatinine 0.2 L (0.6-1.3) mg/dL Estimated GFR (MDRD) 345 (>89) Glucose 114 H (74-104) mg/dL Calcium 8.9 (8.5-10.3) mg/dL Phosphorus < 1.0 L* (2.5-5.0) mg/dL Magnesium 1.7 (1.7-2.3) mg/dL Albumin 3.2 (3.2-5.5) g/dL ABX Reporting Has patient been on IV antibiotics over the past 48 hours?: No Sepsis Event Note (H) - Evaluation Current Stage of Sepsis: Sepsis Possible source of Sepsis: positive: Pulmonary - Sepsis Criteria Sepsis Criteria: Recorded Temperature greater than 38.3C or Less than 36C, SBP drop more than 40mHg, MAP less than 65 mmHg, Renal: urine output less than 0.5ml/kg/hr for 2 hours or creatinine gr Assessment/Plan - Problem List (1) Acute hypoxic respiratory failure Impression: The patient's oxygen was removed today and she dropped down to 87% on room air. She will need oxygen at discharge. (2) Esophageal mass Impression: General surgery felt that she likely has an esophageal mass. After discussion with surgery and the patient's we are not going to pursue endoscopy due to the severe risks and also the fact that if she has a malignancy she is not a candidate for any sort of systemic therapy or treatment. She is an ECOG 4. She is largely bedbound. She no longer ambulates. She is profoundly cachectic and not a candidate for any aggressive workup. (3) Sepsis Impression: Likely multifactorial in nature. The patient had evidence of an early pneumonia at the time of admission. She also has a process going on in her esophagus with some bleeding that could be causing problems. She has been on broad-spectrum IV antibiotics with little improvement. Yesterday the patient pulled out her IV and is refusing all medications. IV antibiotics have been stopped as she is going home with hospice tomorrow. (4) Pneumonia Impression: IV antibiotics were stopped yesterday as she has pulled out her IV and is refusing all medications. No further treatment. The patient will be going home with hospice. Qualifiers: Pneumonia type: due to unspecified organism Laterality: right Lung location: lower lobe of lung Qualified Code(s): J18.9 - Pneumonia, unspecified organism (5) Paroxysmal atrial fibrillation Impression: Other health she removed her remote monitor as well. As far as I can tell she has been in a sinus rhythm and rate controlled during this hospitalization (6) Kyphoscoliosis deformity of spine Impression: Supportive care (7) OCD (obsessive compulsive disorder) Impression: The patient exhibits significant paranoid behaviors. She has waxing and waning mental status. Today she was convinced that her was . She has thought that I was trying to kill her during this hospitalization. Ultimately I do not feel that she is able to make decisions for herself. She refuses all treatment, all medications and refuses to follow with doctors in the outpatient setting. She has a worsening esophageal mass that she is not a candidate for treatment for. She will be going home with hospice services. (8) Severe protein-calorie malnutrition Impression: The patient is profoundly malnourished with a BMI of 15. She has waxing and waning appetite. Diet and pleasure feeds as tolerated going forward. She is going home with hospice tomorrow (9) Sarcopenia Impression: The patient is bedbound at baseline. She no longer ambulates. She is profoundly cachectic. She is going home with hospice services tomorrow Disposition: Inpatient hospitalization remains necessary to set up hospice services. Discharge planning is telling me that she will go home with hospice services tomorrow after oxygen is delivered to the house. I have done a discharge plan and discharge summary and just a quick addendum will need to be added to the note. Discharge order will need to be placed. I am sending the patient's medications to the pharmacy today. Time spent: 45 minutes. This included preparing her discharge for tomorrow
--- NOTE | 2023-12-11 10:32 | Discharge Plan ---
Discharge Plan Problem Reviewed?: Yes Disposition: 50 Hospice/Home DC/Xfer Condition: Serious Diet: Soft (Diet as tolerated. Pleasure feeds) Activity Restrictions: Activity as Tolerated (She is largely bedbound. She previously would get up to a wheelchair. Activity as tolerated) Care Goals: You were admitted to the hospital with hypoxia and pneumonia. You received broad-spectrum IV antibiotics. Unfortunately in spite of of antibiotic therapy you worsened. CT of the chest revealed a possible foreign body. General surgery was consulted who felt like this was calcification and noted you to have an enlarging esophageal mass. At this point we are setting up help in the home with home hospice services. Due to your profound cachexia and inability to ambulate you would not be a candidate for any sort of aggressive systemic therapy. Due to the severity of your kyphosis it was not felt it was felt to be too risky to perform an upper endoscopy. I understand that you are wanting to see the doctor that you watch on TV. If you are able to obtain an appointment certainly you could pursue that going forward. Assessment: 1. Acute hypoxic respiratory failure The patient remains hypoxic on room air. Oxygen is being set up with hospice 2. Esophageal mass General Surgery felt that likely she has an esophageal mass. After discussion with surgery the patient's as well as the patient's decision has been made to not pursue endoscopy due to the severe risks from her severe kyphosis. Also if this is in fact a malignancy she would not be a candidate for any sort of systemic therapy or treatment. Certainly radiation to the esophagus would be extremely difficult if not impossible. She is an ECOG 4. She is bedbound and no longer ambulates. She is profoundly cachectic and not eating enough to sustain herself. She is not a candidate for any further aggressive workup 3. Sepsis Likely multifactorial in nature. The patient had evidence of an early pneumonia at the time of admission. She also has a process going on in her esophagus with some bleeding that could be causing problems. She was initially on broad- spectrum IV antibiotics. Her fevers have resolved. Her hypotension has resolved and her blood pressure is stable. The patient has pulled out her IV and is refusing all medications. No further antibiotics at discharge. She is going home with hospice 4. Pneumonia IV antibiotics were stopped as she had pulled out her IV and is refusing all medications. No further treatment. Of note CT angiography of the chest was not impressive for pneumonia. The CT was obtained after several days of treatment. The patient is going home with hospice. No further workup. 5. Paroxysmal atrial fibrillation She removed her remote monitor. As far as I know she has been in a sinus rhythm and rate controlled during this hospitalization. She is on no medications 6. Kyphoscoliosis deformity of spine Supportive care 7. Obsessive-compulsive disorder The patient exhibits significant paranoid behaviors. She has waxing and waning mental status. She was convinced that her was . She has thought that I was trying to kill her during this hospitalization. Ultimately I do not feel that she is able to make decisions for herself. She refuses all treatment, all medications and refuses to follow with doctors in the outpatient setting. She has a worsening esophageal mass that she is not a candidate for treatment for. She will be going home with hospice services. 8. Severe protein calorie malnutrition The patient is profoundly malnourished with a BMI of 15. She has waxing and waning appetite. Diet and pleasure feeds as tolerated going forward. She is going home with hospice 9. Sarcopenia The patient is bedbound at baseline. She no longer ambulates. She is profoundly cachectic. She is going home with hospice services No Smoking: If you smoke, Please STOP! Call for help.
--- NOTE | 2023-12-11 10:42 | DISCHARGE SUMMARY ---
Discharge Summary Admit Date: 12/06/23 Discharge Date: 12/12/23 Discharging Provider: Kika Johnson PA-C and Isela Kaufman PA-C Primary Care Provider: None. The patient refuses outpatient care Code Status: Do Not Attempt Resuscitation Condition at Discharge: Serious Discharge Disposition: 50 Hospice/Home DC/Xfer - DIAGNOSES Discharge Diagnoses with Status of Each Condition: 1. Acute hypoxic respiratory failure The patient remains hypoxic on room air. Oxygen is being set up with hospice 2. Esophageal mass General Surgery felt that likely she has an esophageal mass. After discussion with surgery the patient's as well as the patient's decision has been made to not pursue endoscopy due to the severe risks from her severe kyphosis. Also if this is in fact a malignancy she would not be a candidate for any sort of systemic therapy or treatment. Certainly radiation to the esophagus would be extremely difficult if not impossible. She is an ECOG 4. She is bedbound and no longer ambulates. She is profoundly cachectic and not eating enough to sustain herself. She is not a candidate for any further aggressive workup 3. Sepsis Likely multifactorial in nature. The patient had evidence of an early pneumonia at the time of admission. She also has a process going on in her esophagus with some bleeding that could be causing problems. She was initially on broad- spectrum IV antibiotics. Her fevers have resolved. Her hypotension has resolved and her blood pressure is stable. The patient has pulled out her IV and is refusing all medications. No further antibiotics at discharge. She is going home with hospice 4. Pneumonia IV antibiotics were stopped as she had pulled out her IV and is refusing all medications. No further treatment. Of note CT angiography of the chest was not impressive for pneumonia. The CT was obtained after several days of treatment. The patient is going home with hospice. No further workup. 5. Paroxysmal atrial fibrillation She removed her remote monitor. As far as I know she has been in a sinus rhythm and rate controlled during this hospitalization. She is on no medications 6. Kyphoscoliosis deformity of spine Supportive care 7. Obsessive-compulsive disorder The patient exhibits significant paranoid behaviors. She has waxing and waning mental status. She was convinced that her was . She has thought that I was trying to kill her during this hospitalization. Ultimately I do not feel that she is able to make decisions for herself. She refuses all treatment, all medications and refuses to follow with doctors in the outpatient setting. She has a worsening esophageal mass that she is not a candidate for treatment for. She will be going home with hospice services. 8. Severe protein calorie malnutrition The patient is profoundly malnourished with a BMI of 15. She has waxing and waning appetite. Diet and pleasure feeds as tolerated going forward. She is going home with hospice 9. Sarcopenia The patient is bedbound at baseline. She no longer ambulates. She is profoundly cachectic. She is going home with hospice services - HPI History of Present Illness: From the admission HP: - HOSPITAL COURSE Hospital Course: The patient is a 78-year-old female who has received very little medical care in her life. She was hospitalized in July with cellulitis in her lower extremities after not taking her socks off for over a year. She was found to be in very poor shape. She has severe kyphosis and imaging studies revealed an extrinsic compression of the esophagus with a possible esophageal mass. It was unclear exactly what this was at the time and there was some thought that it could be her aorta compressing the esophagus versus a mass. It was not felt that she was a candidate for endoscopy at that time. She presented to the emergency room for this hospitalization with lethargy and hypoxia. She was found to have a possible right lower lobe infiltrate and was admitted for IV antibiotics and oxygen support. Initially she was doing well but then took a turn for the worse and became hypotensive and started spiking high fevers. Antibiotic therapy was broadened but in spite of this she continued to spike high fevers. Her blood pressure is now stable. She eventually had a CT angiography of the chest which revealed a possible foreign body in the esophagus with possible acute hemorrhage. General surgery evaluated the patient and reviewed the imaging. He feels that this is a calcification within what looks like an esophageal mass. He felt that it would be quite dangerous to perform an endoscopy due to the severity of her kyphosis and we would need to have anesthesia on board. The question was whether the risk of performing an endoscopy was going to yield any benefit as she clearly is not a candidate for any treatment. The patient is profoundly cachectic. She refuses any outpatient medical care. She does not have a primary doctor but does follow a TV MD that she follows. She says if she could get an appointment with him she would go. He is the only doctor that she trusts. During this hospitalization her appetite is poor. She is eating very little. She has refused blood draws and medications. She is somewhat suspicious and exhibits some paranoid behaviors at times. We have discussed the plan of care for several days. The patient is a DO NOT RESUSCITATE. The patient has been offered palliative care and hospice at discharge. She is quite suspicious of this and thinks that if we send her home with hospice we are just going to let her . She has been reluctant to take that step. Over the course of this hospitalization she has waxing and waning mentation. Sometimes she is alert and oriented and other times she is not. Overall my impression is that she is unable at this time (whether it is for psychiatric reasons or due to her underlying infection or possible dementia) to make an informed decision regarding her medical care. Certainly she tells me that she does not want lab draws. She does not want medications. She wants to go home but does not want hospice at home. She does not want to follow with a doctor but she wants to get well. She does not have very realistic expectations or understanding of her whole situation. The patient is bedbound. Her feet are contracted. Her does pick her up at times to get into a wheelchair but she is largely bedbound. BMI is 15.3 and it appears that she has an underlying malignancy. She is an ECOG 4 and would not be a candidate for any sort of oncologic treatment going forward placing her in a palliative care category. General surgery made the recommendation to not pursue endoscopy. If we were going to aggressively work this up she would need an MRI, barium swallow and possible biopsy. She would need close outpatient follow up but refuses to go see any doctor as an outpatient. Again if we did find out this mass is cancerous she is not a candidate for any sort of systemic treatment and certainly radiation to the esophagus would be extremely difficult. I spoke to the patient's on multiple occasions. At this point he has made the decision to take her home with hospice services. The patient wants to get an appointment with her TV doctor and says that she is working on this and has sent him an email. Certainly if she actually got an appointment set up with him this could be revisited but for now the patient and the needs help in the home. The patient does not like being in the hospital. She does not like lab draws. She does not want to take medications and certainly would benefit from the palliative care approach going forward. After multiple discussions with the patient and her it is felt that the patient is not cognizant enough to make informed decisions for herself. As of the time of this dictation she believes her is . The patient's has agreed to hospice services and she will be discharged tomorrow morning as soon as we get all of that set up. We are not going to use the word hospice around her as this causes her to get quite upset and increases her paranoia. I have told her at this point that we are setting up help in the home. Two days ago she pulled out her IV. She is refusing most of her medications. We are basically pursuing a palliative care approach for the remainder of her hospitalization. She will be discharged Monday as soon as oxygen has been set up by the hospice team. - ALLERGIES Allergies/Adverse Reactions: Allergies Allergy/AdvReac Type Severity Reaction Status Date / Time Penicillins Allergy Rash Verified 12/06/23 13:04 - MEDICATIONS Home Medications: Ambulatory Orders Medication Instructions Recorded Confirmed Acetaminophen [Tylenol] 650 mg PO Q4HR PRN tab 07/17/23 12/07/23 Bisacodyl Supp [Dulcolax Supp] 10 mg PA DAILY PRN #3 supp 12/11/23 LORazepam [Ativan] 0.5 mg PO Q6H PRN #10 tablet 12/11/23 Morphine Sulfate 5 mg PO Q4H PRN #30 ml 12/11/23 OLANZapine ODT [Zyprexa Odt] 5 mg TL BID PRN #10 tablet 12/11/23 Senna [Senokot] 8.6 mg PO BID PRN #10 tablet 12/11/23 - PHYSICAL EXAM AT DISCHARGE General Appearance: positive: Other (The patient continues to exhibit paranoid behaviors) ENT: positive: ENT inspection nml Neck: positive: Nml inspection Respiratory: positive: Other (She would not cooperate for an exam. She seems diminished in the lower bases bilaterally.) Cardiovascular: positive: Regular rate & rhythm, No murmur, No gallop. negative: Friction rub Abdomen: positive: Non-tender, No organomegaly, Nml bowel sounds Skin: positive: Color nml, No rash, Warm Extremities: positive: Non-tender, Other (No MRI she has severe muscle wasting and fat loss throughout all 4 extremities. Both feet are contracted. She has severe venous stasis changes bilaterally with a scabbed over area on the right ankle that shows no evidence of infection) Neurologic/Psychiatric: positive: Other (The patient is extremely paranoid. She thinks her is . She is exhibiting paranoid behaviors) - LABS Result Diagrams: 12/11/23 04:20 12/11/23 04:20 - SEPSIS Current Stage of Sepsis: Sepsis Possible source of Sepsis: Pulmonary Sepsis Criteria: Recorded Temperature greater than 38.3C or Less than 36C, SBP drop more than 40mHg, MAP less than 65 mmHg, Renal: urine output less than 0.5ml/kg/hr for 2 hours or creatinine gr - FOLLOW UP Follow Up: Hospice will be assuming her care - TIME SPENT Time Spent in Discharge (Minutes): 45
[2023-12-11 16:53] VITALS: O2SAT 96
[2023-12-11 23:40] VITALS: BP 171/92
--- NOTE | 2023-12-13 06:46 | PROVIDER PROGRESS NOTE ---
Progress Note Patient remained stable and was discharged to hospice care on 12/11. She was admitted to hospice approx 1.5 hours after discharge from inpatient care. Family was not able to pick and shovel worker comfort pack meds prior to dc, but had hospice services very close to time of dc, and patient was not taking any meds here in the hospital.
--- NOTE | 2023-12-13 23:21 | ED Physician Documentation ---
ED Addendum - Addendum Addendum: Late entry into the patient's chart. Dr. Chambers had spoken to the hospitalist prior to leaving her shift. A bed became available shortly after her shift ended and the patient was admitted. There was no further involvement on my end.
== END 2023-12-12 15:22 | disposition hospice, home (50) | DRG 871 ==
LOC: EDUNIT# → ED 12:59 → MS3 17:48 → OBSVTOIN 12-07 12:23
PROVIDERS: ADMIT Physician Assistant; ATTEND Physician Assistant
DX: A41.9 Sepsis, unspecified organism (principal); E43 Unspecified severe protein-calorie malnutrition; J18.9 Pneumonia, unspecified organism; J96.01 Acute respiratory failure with hypoxia; Z68.1 Body mass index [BMI] 19.9 or less, adult; K22.2 Esophageal obstruction; C15.9 Malignant neoplasm of esophagus, unspecified; L03.116 Cellulitis of left lower limb; L03.115 Cellulitis of right lower limb; I48.0 Paroxysmal atrial fibrillation; M41.9 Scoliosis, unspecified; Z99.3 Dependence on wheelchair; F42.9 Obsessive-compulsive disorder, unspecified; M62.84 Sarcopenia; K22.89 Other specified disease of esophagus; Z66 Do not resuscitate; Z74.01 Bed confinement status; I87.8 Other specified disorders of veins; F03.90 Unspecified dementia, unspecified severity, without behavioral disturbance, psychotic disturbance, mood disturbance, and anxiety; R13.10 Dysphagia, unspecified
CPT/HCPCS: 36415; 36600; 71045; 71275; 80053; 80069; 82803; 83605; 83690; 83735; 84145; 85025; 87633; 87640; 96365; 96372; 97165; 99285; A9270; G0378; J1650; J3370; Q9967; 87081

== ENCOUNTER 2023-12-12 15:33 | Outpatient (CLI) | payer MEDICARE, OTHER | END 2023-12-12 15:34 | disposition home or self-care (01) | LOC: EMS 15:33 | PROVIDERS: ATTEND Physician Assistant Medical | DX: J18.9 Pneumonia, unspecified organism (principal); R09.02 Hypoxemia; E43 Unspecified severe protein-calorie malnutrition; M62.84 Sarcopenia; A41.9 Sepsis, unspecified organism; Z74.01 Bed confinement status | CPT/HCPCS: A0425; A0428 ==